=== PATIENT | female | born 1940 | race Caucasian/White ===

== ENCOUNTER 2017-05-15 18:24 | Inpatient (IN) | payer MEDICARE ==
--- NOTE | 2017-05-15 18:42 | ED Physician Chart ---
Chief Complaint/HPI - Patient Information Date Seen:: 05/15/17 Time Seen:: 18:30 Chief Complaint:: High Sodium Level History of Present Illness:: pt sent to ER because of abnormal lab value with Na+: 163 reported today with onset of fever today; no report of H/As, Neck Pain, C/P, SOB, Abd. Pain, A/N/V/D /C, chills, or urinary s/s Allergies:: Allergies Allergy/AdvReac Type Severity Reaction Status Date / Time No Known Allergies Allergy Verified 05/15/17 18:29 Vitals:: Vital Signs - 8 hr 05/15/17 18:32 Temp 99.3 F HR 85 RR 16 BP 130/58 O2 Sat % 98 Historian:: EMS Review:: Nurse's Note Reviewed, Old Chart Reviewed, EMS run form Reviewed, Transfer documents Reviewed Review of Systems - Review of Systems General/Constitutional: Fever, Chills, No weight loss, Weakness, No diaphoresis , No edema, No loss of appetite Skin: No skin lesions, No rash, No bruising Head: No headache, No light-headedness Eyes: No loss of vision, No pain, No diplopia ENT: No earache, No nasal drainage, No sore throat, No tinnitus Neck: No neck pain, No swelling, No thyromegaly, No stiffness, No mass noted Cardio Vascular: No chest pain, No palpitations, No PND, No orthopnea, No edema Pulmonary: No SOB, No cough, No sputum, No wheezing GI: Nausea, Vomiting, Diarrhea, Pain, No melena, No hematochezia, Constipation, No hematemesis G/U: No dysuria, No frequency, No hematuria State'S Attorney: No vaginal discharge, No abnormal vaginal bleed, No contraction Musculoskeletal: No bone or joint pain, No back pain, No muscle pain Endocrine: No polyuria, No polydipsia Psychiatric: No prior psych history, No depression, No anxiety, No suicidal ideation, No homicidal ideation, No auditory hallucination, No visual hallucination Hematopoietic: No bruising, No lymphadenopathy Allergic/Immuno: No urticaria, No angioedema Neurological: No syncope, No focal symptoms, Weakness, No paresthesia, No headache, No seizure, No dizziness, Confusion, No vertigo Past Medical History - Past Medical History Obtainable: Yes Past Medical History: HTN, Asthma/COPD, CVA/TIA, Dyslipidemia, Arthritis Family History: HTN Social History: Non Smoker, No Alcohol, No Drug Use, Care Facility Surgical History: PEG/GTube, other (Tracheostomy) Psychiatricy History: None Medication: Reviewed Family Medical History - Family Member Nephew History Unknown: Yes Physical Exam - Physical Examination General/Constitutional: Awake, Well-developed, well-nourished, Alert, No distress, GCS 15, Non-toxic appearing, Ambulatory Head: Atraumatic Eyes: Lids, conjuctiva normal, PERRL, EOMI Skin: Nl inspection, No rash, No skin lesions, No ecchymosis, Well hydrated, No lymphadenopathy ENMT: External ears, nose nl, Nasal exam nl, Lips, teeth, gums nl Neck: Nontender, Full ROM w/o pain, No JVD, No nuchal rigidity, No bruit, No mass, No stridor Respiratory: Nl effort/Exclusion, Clear to Auscultation, No Wheeze/Rhonchi/Rales Cardio Vascular: RRR, No murmur, gallop, rubs, NL S1 S2 GI: No tenderness/rebounding/guarding, No organomegaly, No hernia, Normal BS's, Nondistended, No mass/bruits, No McBurney tenderness : No CVA tenderness Extremities: No tenderness or effusion, Full ROM, normal strength in all extremities, No edema, Normal digits & nails Neuro/Psych: Alert/oriented, DTR's symmetric, Normal sensory exam, Normal motor strength, Judgement/insight normal, Mood normal, Normal gait, No focal deficits Other Neuro/Psych comments:: pt is non-verbal Misc: normal gait, Normal back, No paraspinal tenderness Labs/Radiology/EKG Results - Lab Results Results: Na+: 158; K+: 3.1; BUN: 59; H/H: 7.8/23.2 - EKG Interpretations Rate & Rhythm: NSR Comments:: non-specific st-t changes ED Septic Shock - . Is Septic Shock (SBP<90, OR Lactate>4 mmol\L) present?: No - <6hrs of presentation: Vital Signs: Vital Signs - 8 hr 08//17 18:32 Temp 99.3 F HR 85 RR 16 BP 130/58 O2 Sat % 98 Reassessment (Disposition) - Reassessment Reassessment Condition:: Improved - Diagnosis Diagnosis:: Hypokalemia; Hypernatremia; Anemia; Dehydration - Aftercare/Follow up Instructions Aftercare/Follow-Up Instructions:: Counseled pt regarding lab results/diagnosis & need follow up, Counseled pt & family regarding lab results/diagnosis & need follow up - Patient Disposition Discharge/Transfer:: Acute Care w/in this hosp Accepting Physician:: Dr. Brown Time Called:: 1949 Time Responded:: 19:50 Admitted to:: Telemetry Spoke to:: Dr. Brown Admitting Medical Physician:: Dr. Brown Condition at Disposition:: Stable, Improved
[2017-05-15] MEDS ORDERED: Sodium Chloride 0.9% 1,000 ML IV ONE (18:46)
[2017-05-15 19:11] LABS: MEAN CELL VOLUME 91.3 fl (81-100); MEAN CORPUSCULAR HEMOGLOBIN 30.8 pg (27.0-31.0); MEAN CORPUSCULAR HGB CONC 33.7 pg (28.0-36.0); MEAN PLATELET VOLUME 10.2 fl; PLATELET COUNT 84 Th/cmm (150-400); RED BLOOD COUNT 2.54 Mil/cmm (3.80-5.20)
[2017-05-15 19:19] LABS: HEMATOCRIT 23.2 % (35.0-45.0); HEMOGLOBIN 7.8 gm/dL (11.7-16.1)
[2017-05-15 19:23] LABS: INR 0.96 (0.5-1.4)
[2017-05-15 19:24] LABS: CHOLESTEROL 133 mg/dL (<200); TRIGLYCERIDES 151 mg/dL (<150)
[2017-05-15 19:26] LABS: ALB/GLOB RATIO 1.1 (1.0-1.8); ALKALINE PHOSPHATASE 58 U/L (34-104); ANION GAP 7.4 (7.0-16.0); BILIRUBIN,TOTAL 0.4 mg/dL (0.3-1.0); BUN - UREA NITROGEN 59 mg/dL (7-25); BUN/CREATININE RATIO 65.6; CALCIUM SERUM 8.9 mg/dL (8.6-10.3); CARBON DIOXIDE 29.7 mEq/L (21.0-31.0); CHLORIDE 124 mEq/L (98-107); CREATININE - SERUM 0.9 mg/dL (0.6-1.2); GLUCOSE 188 mg/dL (70-105); POTASSIUM SERUM 3.1 mEq/L (3.5-5.1); SGOT 27 U/L (13-39); SGPT/ALT 76 U/L (7-52)
[2017-05-15 19:27] LABS: TROP I 0.02 ng/mL (0.01-0.05)
[2017-05-15 19:40] LABS: SODIUM SERUM 158 mEq/L (136-145)
[2017-05-15] MEDS ORDERED: Potassium Chloride Elixir 20 mEq /15 mL UDC GT ONE (19:57)
[2017-05-15] MEDS ORDERED: Potassium Chloride Elixir 20 mEq /15 mL UDC ONE (20:05)
[2017-05-15 20:07] LABS: EOSINOPHIL 3 % (0-5); NEUTROPHILS 50 % (40-80); TOTAL CELLS COUNTED 100
[2017-05-15 20:08] LABS: ANISOCYTOSIS 1+; PLATELET ESTIMATE DECREASED PLATELETS (NORMAL); PLATELET MORPHOLOGY NORMAL (NORMAL)
[2017-05-15 20:28] LABS: URINE BILIRUBIN NEGATIVE (NEGATIVE); URINE BLOOD NEGATIVE (NEGATIVE); URINE GLUCOSE (UA) NEGATIVE (NEGATIVE); URINE KETONE NEGATIVE (NEGATIVE); URINE PROTEIN NEGATIVE (NEGATIVE); URINE UROBILINOGEN 0.2 E.U./dL (0.2 - 1.0)
[2017-05-15 20:33] LABS: URINE COLOR YELLOW
[2017-05-15 20:34] LABS: URINE BACTERIA NONE SEEN /hpf (NONE SEEN); URINE EPITHELIAL CELLS FEW /lpf (FEW); URINE RBC NONE SEEN /hpf (0-5); URINE WBC 0-2 /hpf (0-5)
[2017-05-15] MEDS ORDERED: Dextrose 5% 1,000 ML IV SCH (21:27)
[2017-05-15] MEDS ORDERED: ALPRAZOLAM 0.25 MG GT SCH (21:27)
[2017-05-15] MEDS ORDERED: Hydrocodone/APAP 5mg/325mg Tab PO PRN (21:27)
[2017-05-15 22:56] VITALS: BP 141/62
[2017-05-16 05:23] LABS: HEMOGLOBIN 8.1 gm/dL (11.7-16.1); PLATELET COUNT 75 Th/cmm (150-400); RED BLOOD COUNT 2.63 Mil/cmm (3.80-5.20)
[2017-05-16 05:31] LABS: ALB/GLOB RATIO 1.1 (1.0-1.8); ALKALINE PHOSPHATASE 58 U/L (34-104); ANION GAP 10.1 (7.0-16.0); BILIRUBIN,TOTAL 0.6 mg/dL (0.3-1.0); BUN - UREA NITROGEN 52 mg/dL (7-25); BUN/CREATININE RATIO 57.8; CALCIUM SERUM 8.6 mg/dL (8.6-10.3); CARBON DIOXIDE 25.3 mEq/L (21.0-31.0); CHLORIDE 120 mEq/L (98-107); CHOLESTEROL 135 mg/dL (<200); CREATININE - SERUM 0.9 mg/dL (0.6-1.2); MAGNESIUM 1.7 mg/dL (1.9-2.7); POTASSIUM SERUM 3.4 mEq/L (3.5-5.1); SGOT 20 U/L (13-39); SGPT/ALT 63 U/L (7-52); SODIUM SERUM 152 mEq/L (136-145); TRIGLYCERIDES 173 mg/dL (<150)
[2017-05-16 05:47] LABS: HEMATOCRIT 24.1 % (35.0-45.0); MEAN CELL VOLUME 91.4 fl (81-100); MEAN CORPUSCULAR HEMOGLOBIN 30.8 pg (27.0-31.0); MEAN CORPUSCULAR HGB CONC 33.7 pg (28.0-36.0); MEAN PLATELET VOLUME 12.1 fl; RED CELL DISTRIBUTION WIDTH 16.4 % (11.5-20.0)
[2017-05-16 05:54] LABS: WHITE BLOOD COUNT 2.7 Th/cmm (4.8-10.8)
[2017-05-16 06:25] LABS: GLUCOSE 489 mg/dL (70-105)
[2017-05-16] MEDS: INSULIN ASPART, RECOMBINANT 100 UNITS/ML SUBQ SCH ×3 (06:43→17:13)
[2017-05-16 08:04] LABS: BAND NEUTROPHILE 8 % (0-10); EOSINOPHIL 1 % (0-5); METAMYELOCYTE 1 % (0-0); NEUTROPHILS 67 % (40-80); TOTAL CELLS COUNTED 100
[2017-05-16 08:05] LABS: ANISOCYTOSIS 1+; PLATELET ESTIMATE DECREASED PLATELETS (NORMAL); PLATELET MORPHOLOGY GIANT PLATELETS SEEN (NORMAL)
--- NOTE | 2017-05-16 08:11 | Diagnostic Imaging Report ---
Portable chest x-ray HISTORY: Pain The heart size appears somewhat enlarged. No focal pulmonary processes. No hilar or mediastinal abnormalities. Tracheostomy noted. IMPRESSION: 1. No acute focal pulmonary processes 2. Suggestion of a degree of cardiomegaly 3. Tracheostomy
[2017-05-16] MEDS: Enoxaparin 60 mg/0.6 mL 0.6mL Syr SUBQ SCH (09:44)
--- NOTE | 2017-05-16 10:15 | History & Physical ---
ADMIT DATE: CHIEF COMPLAINT: Electrolyte imbalance, dehydration, renal insufficiency. HISTORY OF PRESENT ILLNESS: This is a 76-year-old lady with history of hypertension, asthma/COPD, history of CVA, diabetes who apparently was admitted to [facility] in the last couple of months for respiratory failure/pneumonia requiring intubation, and eventually trach placement and PEG placement. The patient was transferred to [facility] last week and on routine labs, she was noted to have hypernatremia, hypokalemia, and azotemia. She was given IV fluids, free water per G-tube which was increased increased 2 days in a row, but her repeat chemistry showed persistent hyponatremia, as well as azotemia. She also appeared to be uncomfortable and appeared to be dry given her mucous membranes were noticeably dry. She was electively transferred to the ER, where pertinent findings include an H and H of 7.8/23.2, a sodium of 158, potassium 3.1, and a BUN of 59. She was admitted to the Medical/Surgical Floor for further management and care. She is nonverbal and is able to follow commands. PAST MEDICAL HISTORY: As noted above. PAST SURGICAL HISTORY: Include trach and PEG placement. FAMILY HISTORY: Likely noncontributory. SOCIAL HISTORY: There is no mention of tobacco products, alcohol or illicit drug usage. She still lives with her family at home and now she resides at a snf facility. ALLERGIES: NKDA. OUTPATIENT MEDICATIONS: Acetaminophen 650 q.4 hours p.r.n. for fever/pain, alprazolam 0.25 q.12 p.r.n., amlodipine 5 daily, docusate sodium 200 mg b.i.d., Lovenox 20 mg subQ daily, famotidine 20 mg daily, hydralazine 10 mg q.i.d., Truxton 5/325 one tab t.i.d. p.r.n. for pain, insulin sliding scale, loperamide 2 mg q.6, Zofran 4 mg q.6 hours. REVIEW OF SYSTEMS: CONSTITUTIONAL: There is no mention of fever or chills. No recent weight loss. HEAD AND NECK: There is no recent upper respiratory symptomatology. Trach has been clean with no bleeding reported. CARDIAC: No chest pain or palpitations. PULMONARY: Some congestion, but no shortness of breath. GASTROINTESTINAL: No nausea or vomiting. No abdominal pain or bloating. No diarrhea or constipation. GENITOURINARY: There is no report of hematuria or frequency. NEUROLOGIC: There is no report of headaches. PHYSICAL EXAMINATION: VITAL SIGNS: Temperature 98.2, T-max 101, pulse 86, respirations 18, blood pressure 129/51, satting 94% on room air. GENERAL: Well nourished, well developed, and appears to be in mild discomfort. HEENT: Oropharynx has dry mucous membranes and she does appear to be slightly pale. NECK: Trach is in place. There is no erythema around it. CARDIOVASCULAR: Regular rate and rhythm without any murmurs. LUNGS: Crackles bilaterally. ABDOMEN: Soft, supple, nontender, nondistended, normoactive bowel sounds. There is a PEG tube in place. EXTREMITIES: Lower extremities: There is no edema. NEUROLOGIC: Difficult to be done completely, but the cranial nerves 2-12 appear to be intact. LABORATORY DATA: On admission, white count 3.0, H and H 7/23, with a platelet count of 84. INR is 0.96. Sodium 158, potassium 3.1, chloride 124, CO2 29, BUN 59, glucose 188. A1c 7.5. AST 27, ALT 76, alkaline phosphatase 58. Troponins have been negative x 1 set. BNP 194. Albumin 3.1. UA was essentially within normal limits. DIAGNOSTICS: Chest x-ray shows no acute focal pulmonary process. There is suggestion of a degree of cardiomegaly and tracheostomy is in place. An EKG shows sinus rhythm at 83. No ST elevations or depressions. IMPRESSION: 1. Azotemia, dehydration. 2. Hypernatremia. 3. Hypokalemia. 4. Anemia. 5. Chronic respiratory failure, status post tracheostomy. 6. Recent history of pneumonia. 7. History of asthma/chronic obstructive pulmonary disease. 8. History of cerebrovascular accident/transient ischemic attack. 9. History of essential hypertension. 10. History of type 2 diabetes. 11. Thrombocytopenia. PLAN: The patient has been admitted to the Medical/Surgical Floor for further management and care. She has been placed on D5 water at 75 mL per hour and free water per G-tube at 200 mL every 4 hours. Her potassium has been repleted and she has been kept on her other medications as scheduled. The patient will also be started empirically on IV antibiotics and Nephrology eval has been asked for further management and care. JOB# [id number] CRESCENCIO
[2017-05-16] MEDS: Azithromycin 500 MG in Sodium Chloride 0.9% 250 ML IV SCH (10:56)
[2017-05-16] MEDS ORDERED: Mag Sulfate 2gm/50mL Premix 2 GM/50 ML BAG IV ONE (14:44)
[2017-05-16] MEDS ORDERED: Albuterol Nebulizer 2.5mg/3mL HHN PRN (15:39)
[2017-05-16] MEDS: Sodium Chloride 0.45% 1,000 ML IV SCH (16:42)
--- NOTE | 2017-05-16 22:06 | Consultation ---
DATE OF CONSULTATION: 05/16/2017 ATTENDING: Rabia Brown M.D. LEGAL ENTITY CONTROLLER: José Norwood M.D. REASON FOR CONSULTATION: Worsening kidney function, electrolyte imbalance, and fluid management. HISTORY OF PRESENT ILLNESS: This is a 76-year-old female with past medical history of CVA, who was brought in because of abnormal labs. Two days prior to admission, the patient had labs drawn, which revealed a sodium of 163. Her water flush was increased to 200 mL q.8 hours and started on D5 half NS plus KCl of 10 mEq/L at 75 mL per hour. Repeat labs revealed persistently elevated sodium. Thus, she was brought to the Emergency Room. Her sodium was 158 with a potassium of 3.1, and a BUN/creatinine of 59/1. She was started on IV fluids. She had no history of nausea and vomiting, no diarrhea. PAST MEDICAL HISTORY: 1. History of respiratory failure. 2. Type 2 diabetes mellitus. 3. Essential hypertension. 4. Bronchial asthma/COPD. 5. Status post CVA/TIA. 6. Dyslipidemia. 7. Rheumatoid arthritis. 8. Moderate malnutrition. PAST SURGICAL HISTORY: 1. Status post tracheostomy. 2. Status post PEG placement. CURRENT MEDICATIONS: She is currently on acetaminophen, alprazolam, azithromycin, ceftriaxone, docusate sodium, Lovenox, Pepcid, hydralazine, hydrocodone/APAP, aspart, Imodium, ondansetron, and potassium chloride. ALLERGIES: No known drug allergies. SOCIAL HISTORY: No history of alcohol or tobacco abuse. 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 FAMILY HISTORY: Noncontributory to present illness. REVIEW OF SYSTEMS: I was not able to obtain directly from the patient because she remains nonverbal. PHYSICAL EXAMINATION: GENERAL: The patient is arousable, not in any form of distress, nonverbal. VITAL SIGNS: Her blood pressure is 136/94, pulse 87, temperature 98.6 degrees. SKIN: very poor skin turgor, dry, warm. No jaundice appreciated. HEENT: Head is normocephalic, atraumatic. Eyes: Extraocular muscles intact. Pupils equal, round, reactive to light and accommodates. Anicteric sclerae. Pale conjunctivae. Nose: Midline nasal septum. Mouth: Very dry mucosa with poor dentition. NECK: Supple, no adenopathy, no thyromegaly, no bruits. Trachea palpated in the midline. CARDIOVASCULAR: S1, S2. No rub, murmur, no gallop appreciated. Point of maximal impulse fifth intercostal space, left midclavicular line. No abdominal or femoral bruits appreciated. LUNGS: Equal expansion. No use of accessory muscles. No supraclavicular retractions. Decreased breath sounds, few rhonchi, but no rales, no wheezes appreciated. BREAST: Symmetrical, without any discharge. ABDOMEN: Mildly globular, soft. Positive for bowel sounds. No bruits either diastolic or systolic. RECTAL: Lax sphincter tone. GENITOURINARY: Normal appearing female genitalia. MUSCULOSKELETAL: No effusions present in her joints with limited range of motion. EXTREMITIES: No evidence of any edema, cyanosis, no clubbing, with palpable femoral, popliteal, and dorsalis pedis pulses. NEUROLOGIC: The patient is arousable; however, she could not follow my neuro commands, so I was not able to pursue further my neuro exam. LABORATORY DATA: Did reveal a white count of 2.7, hemoglobin 8.1, hematocrit 24.1, platelets 75. Sodium was 152, potassium 3.4, chloride 120, bicarb is 3.1, glucose is 489, magnesium 1.7. BNP is 194. Albumin is 3.1. TSH 0.88. IMPRESSION: 1. Hypernatremia, likely secondary to dehydration, even though she has G-tube feeding, her water flushes and G-tube feeding rate may not be enough to supplement sensible and insensible fluid losses. 2. Prerenal azotemia based on an elevated BUN to creatinine ratio, likely due to dehydration. This was supported by physical exam of poor skin turgor and dry oral mucosa. She also has a very concentrated urine. 3. Hypokalemia, etiology. 4. Pancytopenia, possibly due to some form of hypersplenism, myelodysplastic syndrome, or even from intake of medications that suppress the bone marrow. 5. History of respiratory failure. 6. Type 2 diabetes mellitus with chronic kidney disease. 7. Essential hypertension with chronic kidney disease. 8. Bronchial asthma/chronic obstructive pulmonary disease. 9. Status post cerebrovascular accident/transient ischemic attack. 10. Dyslipidemia. 11. Rheumatoid arthritis. 12. Moderate malnutrition. PLAN: 1. Continue with IV fluids, but this time switch D5W to half NS because of markedly elevated glucose level. 2. Agree with the increasing water flushes. 3. Follow up urine sodium, eosinophils, and creatinine. 4. Urine microalbumin to creatinine ratio. 5. Stool for occult blood. 6. Follow up electrolytes and CBC. 7. Replace magnesium. Thank you, Dr. Brown for this consult. I will follow the patient closely with you. JOB# [id number]
--- NOTE | 2017-05-16 23:51 | Consultation ---
DATE OF CONSULTATION: 05/16/2017 PATIENT OF: Dr. Brown. Thank you very much Dr. Brown for this consultation. HISTORY OF PRESENT ILLNESS: This is a 76-year-old female who was brought in for electrolyte imbalance and admitted for further treatment and management. The patient apparently has history of chronic respiratory failure on tracheostomy. She had a tracheostomy for 3 years now. 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 PAST MEDICAL HISTORY: COPD, history of pneumonia in the past, dysphagia, G-tube feeding. SOCIAL HISTORY: No smoking. REVIEW OF SYSTEMS: Unable to obtain because of the patient's condition. PHYSICAL EXAMINATION: GENERAL: The patient is awake, not in distress, apparently has been tracheostomy capped lately on and off the past week or so. VITAL SIGNS: Temperature 98.6, pulse 86, respirations 18, blood pressure 129/51, saturation 93% on room air. HEENT: Atraumatic, normocephalic. Pupils equal and reactive to light and accommodation. Ears, nose and throat normal. NECK: Supple. No JVD. CHEST: There is no wheezing or crackles bilaterally. HEART: Regular . ABDOMEN: Soft. EXTREMITIES: No edema. LABORATORY DATA: Chest x-ray showed no acute infiltrate. WBC 22.7, hemoglobin 8.1, hematocrit 24.1, platelets is 75. Sodium is 152, potassium 3.4, BUN is 52, creatinine 0.9. IMPRESSION: 1. This is a 76-year-old female with chronic respiratory failure, status post tracheostomy. 2. Anemia. 3. Hypernatremia and some dehydration. PLAN: 1. IV fluids. 2. Add nebulizer treatment. 3. Uncap if short of breath and at night time. Thank you very much. I will follow the patient with you. JOB# [id number]
[2017-05-17] MEDS: INSULIN ASPART, RECOMBINANT 100 UNITS/ML SUBQ SCH ×4 (00:30→18:05)
[2017-05-17 05:39] LABS: HEMATOCRIT 26.5 % (35.0-45.0); HEMOGLOBIN 8.7 gm/dL (11.7-16.1); MEAN CELL VOLUME 91.2 fl (81-100); MEAN CORPUSCULAR HEMOGLOBIN 29.8 pg (27.0-31.0); MEAN CORPUSCULAR HGB CONC 32.7 pg (28.0-36.0); RED BLOOD COUNT 2.91 Mil/cmm (3.80-5.20); RED CELL DISTRIBUTION WIDTH 16.8 % (11.5-20.0)
[2017-05-17 05:47] LABS: WHITE BLOOD COUNT 4.1 Th/cmm (4.8-10.8)
[2017-05-17] MEDS: Sodium Chloride 0.45% 1,000 ML IV SCH (05:54)
[2017-05-17 06:06] LABS: ANION GAP 6.7 (7.0-16.0); BUN - UREA NITROGEN 49 mg/dL (7-25); BUN/CREATININE RATIO 61.3; CALCIUM SERUM 8.2 mg/dL (8.6-10.3); CARBON DIOXIDE 26.4 mEq/L (21.0-31.0); CHLORIDE 121 mEq/L (98-107); CREATININE - SERUM 0.8 mg/dL (0.6-1.2); GLUCOSE 300 mg/dL (70-105); MAGNESIUM 2.3 mg/dL (1.9-2.7); POTASSIUM SERUM 3.1 mEq/L (3.5-5.1); SODIUM SERUM 151 mEq/L (136-145)
[2017-05-17 07:46] LABS: ANISOCYTOSIS 1+; BAND NEUTROPHILE 11 % (0-10); NEUTROPHILS 59 % (40-80); PLATELET ESTIMATE DECREASED PLATELETS (NORMAL); PLATELET MORPHOLOGY GIANT PLATELETS SEEN (NORMAL); TOTAL CELLS COUNTED 100
[2017-05-17 07:47] LABS: PLATELET COUNT 59 Th/cmm (150-400)
--- NOTE | 2017-05-17 08:17 | Diagnostic Imaging Report ---
CHEST X-RAY: AP view INDICATION: Respiratory failure COMPARISON: 05/15/2017 FINDINGS: Tracheostomy tube is noted. Small left effusion is noted. Bibasal atelectatic changes are noted. Cardiomegaly is noted. Left PICC line is seen terminating along the left axillary region. Old left rib fractures noted. IMPRESSION: Small left effusion and bibasal atelectatic changes. No focal consolidation identified. No evidence of agustin CHF. Cardiomegaly.
[2017-05-17] MEDS: Azithromycin 500 MG in Sodium Chloride 0.9% 250 ML IV SCH (09:07)
[2017-05-17] MEDS: Enoxaparin 60 mg/0.6 mL 0.6mL Syr SUBQ SCH (09:09)
[2017-05-17] MEDS ORDERED: Potassium Chloride 40 MEQ, Lidocaine 1% 20mL Vial 25 MG in Sodium Chloride 0.9% 250 ML IV ONE (11:24)
--- NOTE | 2017-05-17 13:00 | General Progress Note ---
Subjective - Review of Systems Service Date: 05/17/17 Subjective: Sleeping, comfortable Objective - Results Result Diagrams: 05/17/17 05:19 05/17/17 05:19 Recent Labs: Laboratory Last Values WBC 4.1 Th/cmm (4.8-10.8) L D 05/17/17 05:19 RBC 2.91 Mil/cmm (3.80-5.20) L 05/17/17 05:19 Hgb 8.7 gm/dL (11.7-16.1) L 05/17/17 05:19 Hct 26.5 % (35.0-45.0) L 05/17/17 05:19 MCV 91.2 fl (81-100) 05/17/17 05:19 MCH 29.8 pg (27.0-31.0) 05/17/17 05:19 MCHC Differential 32.7 pg (28.0-36.0) 05/17/17 05:19 RDW 16.8 % (11.5-20.0) 05/17/17 05:19 Plt Count 59 Th/cmm (150-400) L D 05/17/17 05:19 MPV 11.0 fl 05/17/17 05:19 Band Neutrophils % 11 % (0-10) H 05/17/17 05:19 Neutrophils (Manual) 59 % (40-80) 05/17/17 05:19 Lymphocytes 23 % (20-50) 05/17/17 05:19 Monocytes 7 % (2-10) 05/17/17 05:19 Eosinophils 1 % (0-5) 05/16/17 05:01 Metamyelocytes 1 % (0-0) H 05/16/17 05:01 Nucleated RBCs 1.0 % (0-0) H 05/17/17 05:19 Platelet Estimate DECREASED PLATELETS (NORMAL) 05/17/17 05:19 Platelet Morphology GIANT PLATELETS SEEN (NORMAL) 05/17/17 05:19 Anisocytosis 1+ 05/17/17 05:19 RBC Morph Micro Appear ABNORMAL (NORMAL) 05/17/17 05:19 Eos Smear Source URINE 05/16/17 22:55 Eos Smear Total Cells NONE SEEN (NONE SEEN) 05/16/17 22:55 PT 10.0 SECONDS (9.5-11.5) 05/15/17 18:56 INR 0.96 (0.5-1.4) 05/15/17 18:56 PTT (Actin FS) 21.6 SECONDS (26.0-38.0) L 05/15/17 18:56 Sodium 151 mEq/L (136-145) H 05/17/17 05:19 Potassium 3.1 mEq/L (3.5-5.1) L 05/17/17 05:19 Chloride 121 mEq/L (98-107) H 05/17/17 05:19 Carbon Dioxide 26.4 mEq/L (21.0-31.0) 05/17/17 05:19 Anion Gap 6.7 (7.0-16.0) L 05/17/17 05:19 BUN 49 mg/dL (7-25) H 05/17/17 05:19 Creatinine 0.8 mg/dL (0.6-1.2) 05/17/17 05:19 Est GFR ( Amer) TNP 05/17/17 05:19 Est GFR (Non-Af Amer) TNP 05/17/17 05:19 BUN/Creatinine Ratio 61.3 05/17/17 05:19 Glucose 300 mg/dL (70-105) H 05/17/17 05:19 POC Glucose 267 MG/DL (70 - 105) H 05/17/17 11:50 Hemoglobin A1c % 7.5 % (4.0-6.0) H 05/15/17 18:56 Whole Bld Lactic Acid 1.71 mmol/L (0.60-1.99) 05/15/17 18:56 Calcium 8.2 mg/dL (8.6-10.3) L 05/17/17 05:19 Magnesium 2.3 mg/dL (1.9-2.7) 05/17/17 05:19 Total Bilirubin 0.6 mg/dL (0.3-1.0) 05/16/17 05:01 AST 20 U/L (13-39) 05/16/17 05:01 ALT 63 U/L (7-52) H 05/16/17 05:01 Alkaline Phosphatase 58 U/L (34-104) 05/16/17 05:01 Creatine Kinase 20 U/L (30-223) L 05/15/17 18:56 Troponin I 0.02 ng/mL (0.01-0.05) 05/15/17 18:56 B-Natriuretic Peptide 194.0 pg/mL (5.0-100.0) H 05/15/17 18:56 Total Protein 6.0 gm/dL (6.0-8.3) 05/16/17 05:01 Albumin 3.1 gm/dL (3.7-5.3) L 05/16/17 05:01 Globulin 2.9 gm/dL 05/16/17 05:01 Albumin/Globulin Ratio 1.1 (1.0-1.8) 05/16/17 05:01 Triglycerides 173 mg/dL (<150) H 05/16/17 05:01 Cholesterol 135 mg/dL (<200) 05/16/17 05:01 LDL Cholesterol Direct 97 mg/dL (75-193) 05/16/17 05:01 HDL Cholesterol 32 mg/dL (23-92) 05/16/17 05:01 TSH 0.88 uIU/ml (0.34-5.60) 05/16/17 05:01 Urine Source MIDSTREAM 05/15/17 19:20 Urine Color YELLOW 05/15/17 19:20 Urine Clarity CLEAR (CLEAR) 05/15/17 19:20 Urine pH 6.0 (4.6 - 8.0) 05/15/17 19:20 Ur Specific [place] 1.020 (1.005-1.030) 05/15/17 19:20 Urine Protein NEGATIVE mg/dL (NEGATIVE) 05/15/17 19:20 Urine Glucose (UA) NEGATIVE mg/dL (NEGATIVE) 05/15/17 19:20 Urine Ketones NEGATIVE mg/dL (NEGATIVE) 05/15/17 19:20 Urine Blood NEGATIVE (NEGATIVE) 05/15/17 19:20 Urine Nitrate NEGATIVE (NEGATIVE) 05/15/17 19:20 Urine Bilirubin NEGATIVE (NEGATIVE) 05/15/17 19:20 Urine Urobilinogen 0.2 E.U./dL (0.2 - 1.0) 05/15/17 19:20 Ur Leukocyte Esterase NEGATIVE (NEGATIVE) 05/15/17 19:20 Urine RBC NONE SEEN /hpf (0-5) 05/15/17 19:20 Urine WBC 0-2 /hpf (0-5) 05/15/17 19:20 Ur Epithelial Cells FEW /lpf (FEW) 05/15/17 19:20 Urine Bacteria NONE SEEN /hpf (NONE SEEN) 05/15/17 19:20 Ur Random Sodium 58 mmol/L 05/16/17 22:55 Urine Creatinine 61.0 mg/dl (28.0-217.0) 05/16/17 22:55 Blood Type A POSITIVE 05/16/17 09:30 Antibody Screen NEGATIVE 05/16/17 09:30 Crossmatch See Detail 05/16/17 09:30 - Physical Exam Vitals and I&O: Vital Signs Temp 97.1 F 05/17/17 07:00 Pulse 100 05/17/17 09:06 Resp 18 05/17/17 08:00 BP 101/45 05/17/17 09:06 Pulse Ox 98 05/17/17 07:54 Intake & Output 05/16/17 05/17/17 05/17/17 18:59 06:59 18:59 Intake Total 1350 2270 Output Total 150 Balance 1350 2120 Weight (lbs) 58.967 kg 58.967 kg Intake: Intake, IV Amount 250 1050 Azithromycin 500 mg In 250 Sodium Chloride 0.9% 250 ml @ 250 mls/hr IV Q24HR [facility] Rx#:[id number] Sodium Chloride 0.45% 1, 1000 000 ml @ 100 mls/hr IV . Q10H [facility] Rx#:[id number] cefTRIAXone 1 gm In 50 Dextrose 5% 50 ml @ 100 mls/hr IV Q24H [facility] Rx#: [id number] Oral 0 0 Tube Feeding 720 TPN/PPN 600 Other 500 500 Output: Urine 150 Other: # Voids 2 3 # Bowel Movements 0 0 Active Medications: Current Medications Acetaminophen (Tylenol) 650 mg PO Q4HR PRN PRN Reason: Pain or Fever >101 Stop: 07/14/17 21:26 Last Admin: 05/16/17 04:34 Dose: 650 mg Acetaminophen/Hydrocodone Bitart ([place] 5mg/325mg) 1 tab PO TID PRN PRN Reason: Pain (Mild) Stop: 07/14/17 21:26 Albuterol Sulfate (Albuterol 2.5mg/3ml Neb Ud) 2.5 mg HHN Q4HRT PRN PRN Reason: Shortness of Breath Stop: 07/15/17 15:38 Alprazolam (Xanax) 0.25 mg PO Q12H [facility] Stop: 07/15/17 08:14 Last Admin: 05/17/17 09:06 Dose: 0.25 mg Amlodipine Besylate (Norvasc) 5 mg GT DAILY [facility] Stop: 07/15/17 08:59 Last Admin: 05/17/17 09:06 Dose: 5 mg Docusate Sodium (Colace) 200 mg PO BID [facility] Stop: 07/15/17 08:59 Last Admin: 05/17/17 09:06 Dose: 200 mg Enoxaparin Sodium (Lovenox) 20 mg SUBQ DAILY [facility] Stop: 07/15/17 08:59 Last Admin: 05/17/17 09:09 Dose: 20 mg Famotidine (Pepcid) 20 mg GT DAILY [facility] Stop: 07/15/17 08:59 Last Admin: 05/17/17 09:06 Dose: 20 mg Hydralazine HCl (Apresoline) 10 mg PO QID PRN PRN Reason: SBP ABOVE 160 Stop: 07/14/17 21:26 Azithromycin 500 mg/ Sodium (Chloride) 250 mls @ 250 mls/hr IV Q24HR [facility] Stop: 07/15/17 09:44 Last Admin: 05/17/17 09:07 Dose: 250 mls/hr Ceftriaxone Sodium 1 gm/ (Dextrose) 50 mls @ 100 mls/hr IV Q24H [facility] Stop: 07/15/17 09:44 Last Admin: 05/17/17 10:42 Dose: 100 mls/hr Sodium Chloride (Nacl 0.45%) 1,000 mls @ 100 mls/hr IV .Q10H [facility] Stop: 07/15/17 14:29 Last Admin: 05/17/17 05:54 Dose: 100 mls/hr Potassium Chloride 40 meq/Lidocaine HCl 25 mg/ Sodium Chloride 272.5 mls @ 68 mls/hr IV X1 ONE Stop: 05/17/17 15:24 Insulin Aspart (Novolog) 0 units SUBQ Q6HR [facility] PRN Reason: Protocol Stop: 07/16/17 05:59 Last Admin: 05/17/17 11:59 Dose: 7 ud Insulin Detemir (Levemir Insulin) 10 units SUBQ HS [facility] PRN Reason: Protocol Stop: 07/16/17 20:59 Loperamide HCl (Imodium) 2 mg PO Q6H PRN PRN Reason: Diarrhea Stop: 07/14/17 21:26 Mupirocin (Bactroban Oint) 1 appl NS BID [facility] Stop: 05/22/17 09:01 Ondansetron HCl (Zofran Odt) 4 mg SL Q6HR PRN PRN Reason: Nausea Stop: 07/14/17 21:26 General: Alert, Cooperative, No acute distress HEENT: Atraumatic, PERRLA, EOMI, Mucous membr. moist/pink Neck: Supple, +2 carotid pulse wo bruit Cardiovascular: Regular rate, Normal S1, Normal S2 Lungs: Clear to auscultation Abdomen: Bowel sounds, Soft Extremities: no Edema Neurological: Sensation intact Skin: no Rash Psych/Mental Status: Mood NL Assessment/Plan - Assessment Assessment: Hypernatremia secondary to dehydration Hypokalemia without hyperaldosteronism Prerenal azotemia Pancytopenia Status post respiratory failure on PMV Type II DM with CKD Essential hypertension CKD Bronchial asthma/COPD Status post CVA Dyslipidemia Rheumatoid arthritis Moderate malnutrition - Plan Plan: Lab - Result Diagrams 05/17/17 05:19 05/17/17 05:19 Current Medications Acetaminophen (Tylenol) 650 mg PO Q4HR PRN PRN Reason: Pain or Fever >101 Stop: 07/14/17 21:26 Last Admin: 05/16/17 04:34 Dose: 650 mg Acetaminophen/Hydrocodone Bitart ([place] 5mg/325mg) 1 tab PO TID PRN PRN Reason: Pain (Mild) Stop: 07/14/17 21:26 Albuterol Sulfate (Albuterol 2.5mg/3ml Neb Ud) 2.5 mg HHN Q4HRT PRN PRN Reason: Shortness of Breath Stop: 07/15/17 15:38 Alprazolam (Xanax) 0.25 mg PO Q12H [facility] Stop: 07/15/17 08:14 Last Admin: 05/17/17 09:06 Dose: 0.25 mg Amlodipine Besylate (Norvasc) 5 mg GT DAILY [facility] Stop: 07/15/17 08:59 Last Admin: 05/17/17 09:06 Dose: 5 mg Docusate Sodium (Colace) 200 mg PO BID [facility] Stop: 07/15/17 08:59 Last Admin: 05/17/17 09:06 Dose: 200 mg Enoxaparin Sodium (Lovenox) 20 mg SUBQ DAILY [facility] Stop: 07/15/17 08:59 Last Admin: 05/17/17 09:09 Dose: 20 mg Famotidine (Pepcid) 20 mg GT DAILY [facility] Stop: 07/15/17 08:59 Last Admin: 05/17/17 09:06 Dose: 20 mg Hydralazine HCl (Apresoline) 10 mg PO QID PRN PRN Reason: SBP ABOVE 160 Stop: 07/14/17 21:26 Azithromycin 500 mg/ Sodium (Chloride) 250 mls @ 250 mls/hr IV Q24HR [facility] Stop: 07/15/17 09:44 Last Admin: 05/17/17 09:07 Dose: 250 mls/hr Ceftriaxone Sodium 1 gm/ (Dextrose) 50 mls @ 100 mls/hr IV Q24H [facility] Stop: 07/15/17 09:44 Last Admin: 05/17/17 10:42 Dose: 100 mls/hr Sodium Chloride (Nacl 0.45%) 1,000 mls @ 100 mls/hr IV .Q10H [facility] Stop: 07/15/17 14:29 Last Admin: 05/17/17 05:54 Dose: 100 mls/hr Potassium Chloride 40 meq/Lidocaine HCl 25 mg/ Sodium Chloride 272.5 mls @ 68 mls/hr IV X1 ONE Stop: 05/17/17 15:24 Insulin Aspart (Novolog) 0 units SUBQ Q6HR [facility] PRN Reason: Protocol Stop: 07/16/17 05:59 Last Admin: 05/17/17 11:59 Dose: 7 ud Insulin Detemir (Levemir Insulin) 10 units SUBQ HS [facility] PRN Reason: Protocol Stop: 07/16/17 20:59 Loperamide HCl (Imodium) 2 mg PO Q6H PRN PRN Reason: Diarrhea Stop: 07/14/17 21:26 Mupirocin (Bactroban Oint) 1 appl NS BID [facility] Stop: 05/22/17 09:01 Ondansetron HCl (Zofran Odt) 4 mg SL Q6HR PRN PRN Reason: Nausea Stop: 07/14/17 21:26 Continue IV fluid half and has because blood sugar still elevated Sodium and kidney function slightly improved Replace potassium Follow-up electrolytes, CBC Nutritional Asmnt/Malnutr-PDOC - Dietary Evaluation Malnutrition Findings (Please click <Entered> for more info): Nutritional Asmnt/Malnutrition Start: 05/16/17 13: 09 Text: Status: Complete Freq: Document 05/16/17 13:09 GARRETT (Rec: 05/16/17 13:17 GSLINH [email or web address]) Nutritional Asmnt/Malnutrition Patient General Information Nutritional Screening High Risk Screening Diagnosis Azotemia, dehydration, Pertinent Medical Hx/Surgical Hx HTN, asthma/COPD, CVA, DM, recent respiratory failure/PNA requiring intubation and evetually trach and PEG Subjective Information 76 year old female. Lab trigger glucose 489H. Pt made eye contact, mumbled, trach, unable to interview. No severe muscle/fat wasting noted. Discussed with SPIKE Meade who discuseed with MD Brown regarding formula switch to Diabetisource due to glucoer 489H and hx DM. RN stated pt has been toelrating tube feeding well, no residuals. Current Diet Order/ Nutrition Support Isosource at 40ml/hr x 20hrs Pertinent Medications D5w, Colace, Novolog, Zofran Pertinent Labs 05/15: A1c 7.5H 05/16: potassium 3.4L, glucose 489H, BUN 52H, creaitnine 0.9 WNL Nutritional Hx/Data Height 1.57 m Height (Calculated Centimeters) 157.5 Current Weight (lbs) 59.194 kg Weight (Calculated Kilograms) 59.2 Weight (Calculated Grams) 25210.8 [place] Body Weight 110 Weight Status Approriate GI Symptoms Usual diet at home Chart: Diabetisource at 60ml/ hr x 18hrs, providing 1296kcal . Skin Integrity/Comment: Fer 14. Bilateral upper medial thigh redness. Estimated Nutritional Goals BEE in Kcals: Using Current wt Calories/Kcals/Kg CBW 130.5lb/59.3kg Kcals Calculated 1364-1660kcal (23-28kcal/kg) Protein: Using Current wt Protein Calculated 59g (1g/kg) Fluid: ml 1483-1779ml (1ml/kcal) Nutritional Problem 1. Problem Problem Altered nutrition related laboratory values related to Etiology DM aeb Signs/Symptoms: glucose 489 this AM, hx DM Intervention/Recommendation Comments 1. Recommend Diabetisource at 60ml/hr x 20hrs, providing 1200ml total volume, 1440kcal, 72g protein. Expected Outcomes/Goals Expected Outcomes/Goals 1. Pt to meet 100% of estimated nutritional needs on tube feeding with tolerance.
[2017-05-17] MEDS: Insulin Detemir 100 units/mL 10mL Vial SUBQ SCH (20:16)
[2017-05-18] MEDS: Sodium Chloride 0.45% 1,000 ML IV SCH (01:55)
[2017-05-18] MEDS: INSULIN ASPART, RECOMBINANT 100 UNITS/ML SUBQ SCH ×4 (01:58→17:41)
[2017-05-18 07:39] LABS: HEMATOCRIT 27.4 % (35.0-45.0); HEMOGLOBIN 9.3 gm/dL (11.7-16.1); MEAN CELL VOLUME 90.5 fl (81-100); MEAN CORPUSCULAR HEMOGLOBIN 30.6 pg (27.0-31.0); MEAN CORPUSCULAR HGB CONC 33.8 pg (28.0-36.0); MEAN PLATELET VOLUME 10.5 fl; PLATELET COUNT 53 Th/cmm (150-400); RED BLOOD COUNT 3.03 Mil/cmm (3.80-5.20); RED CELL DISTRIBUTION WIDTH 16.1 % (11.5-20.0)
[2017-05-18 07:49] LABS: ANION GAP 6.9 (7.0-16.0); BUN - UREA NITROGEN 32 mg/dL (7-25); BUN/CREATININE RATIO 53.3; CALCIUM SERUM 8.2 mg/dL (8.6-10.3); CARBON DIOXIDE 23.2 mEq/L (21.0-31.0); CHLORIDE 119 mEq/L (98-107); CREATININE - SERUM 0.6 mg/dL (0.6-1.2); GLUCOSE 143 mg/dL (70-105); MAGNESIUM 1.9 mg/dL (1.9-2.7); POTASSIUM SERUM 3.1 mEq/L (3.5-5.1); SODIUM SERUM 146 mEq/L (136-145)
[2017-05-18 08:46] LABS: WHITE BLOOD COUNT 3.1 Th/cmm (4.8-10.8)
--- NOTE | 2017-05-18 08:50 | General Progress Note ---
Subjective - Review of Systems Service Date: 05/18/17 Subjective: patient non verbal Objective - Results Result Diagrams: 05/17/17 05:19 05/18/17 06:35 Recent Labs: Laboratory Last Values WBC 4.1 Th/cmm (4.8-10.8) L D 05/17/17 05:19 RBC 2.91 Mil/cmm (3.80-5.20) L 05/17/17 05:19 Hgb 8.7 gm/dL (11.7-16.1) L 05/17/17 05:19 Hct 26.5 % (35.0-45.0) L 05/17/17 05:19 MCV 91.2 fl (81-100) 05/17/17 05:19 MCH 29.8 pg (27.0-31.0) 05/17/17 05:19 MCHC Differential 32.7 pg (28.0-36.0) 05/17/17 05:19 RDW 16.8 % (11.5-20.0) 05/17/17 05:19 Plt Count 59 Th/cmm (150-400) L D 05/17/17 05:19 MPV 11.0 fl 05/17/17 05:19 Band Neutrophils % 11 % (0-10) H 05/17/17 05:19 Neutrophils (Manual) 59 % (40-80) 05/17/17 05:19 Lymphocytes 23 % (20-50) 05/17/17 05:19 Monocytes 7 % (2-10) 05/17/17 05:19 Eosinophils 1 % (0-5) 05/16/17 05:01 Metamyelocytes 1 % (0-0) H 05/16/17 05:01 Nucleated RBCs 1.0 % (0-0) H 05/17/17 05:19 Platelet Estimate DECREASED PLATELETS (NORMAL) 05/17/17 05:19 Platelet Morphology GIANT PLATELETS SEEN (NORMAL) 05/17/17 05:19 Anisocytosis 1+ 05/17/17 05:19 RBC Morph Micro Appear ABNORMAL (NORMAL) 05/17/17 05:19 Eos Smear Source URINE 05/16/17 22:55 Eos Smear Total Cells NONE SEEN (NONE SEEN) 05/16/17 22:55 PT 10.0 SECONDS (9.5-11.5) 05/15/17 18:56 INR 0.96 (0.5-1.4) 05/15/17 18:56 PTT (Actin FS) 21.6 SECONDS (26.0-38.0) L 05/15/17 18:56 Sodium 146 mEq/L (136-145) H 05/18/17 06:35 Potassium 3.1 mEq/L (3.5-5.1) L 05/18/17 06:35 Chloride 119 mEq/L (98-107) H 05/18/17 06:35 Carbon Dioxide 23.2 mEq/L (21.0-31.0) 05/18/17 06:35 Anion Gap 6.9 (7.0-16.0) L 05/18/17 06:35 BUN 32 mg/dL (7-25) H 05/18/17 06:35 Creatinine 0.6 mg/dL (0.6-1.2) 05/18/17 06:35 Est GFR ( Amer) TNP 05/18/17 06:35 Est GFR (Non-Af Amer) TNP 05/18/17 06:35 BUN/Creatinine Ratio 53.3 05/18/17 06:35 Glucose 143 mg/dL (70-105) H 05/18/17 06:35 POC Glucose 127 MG/DL (70 - 105) H 05/18/17 06:49 Hemoglobin A1c % 7.5 % (4.0-6.0) H 05/15/17 18:56 Whole Bld Lactic Acid 1.71 mmol/L (0.60-1.99) 05/15/17 18:56 Calcium 8.2 mg/dL (8.6-10.3) L 05/18/17 06:35 Magnesium 1.9 mg/dL (1.9-2.7) 05/18/17 06:35 Total Bilirubin 0.6 mg/dL (0.3-1.0) 05/16/17 05:01 AST 20 U/L (13-39) 05/16/17 05:01 ALT 63 U/L (7-52) H 05/16/17 05:01 Alkaline Phosphatase 58 U/L (34-104) 05/16/17 05:01 Creatine Kinase 20 U/L (30-223) L 05/15/17 18:56 Troponin I 0.02 ng/mL (0.01-0.05) 05/15/17 18:56 B-Natriuretic Peptide 194.0 pg/mL (5.0-100.0) H 05/15/17 18:56 Total Protein 6.0 gm/dL (6.0-8.3) 05/16/17 05:01 Albumin 3.1 gm/dL (3.7-5.3) L 05/16/17 05:01 Globulin 2.9 gm/dL 05/16/17 05:01 Albumin/Globulin Ratio 1.1 (1.0-1.8) 05/16/17 05:01 Triglycerides 173 mg/dL (<150) H 05/16/17 05:01 Cholesterol 135 mg/dL (<200) 05/16/17 05:01 LDL Cholesterol Direct 97 mg/dL (75-193) 05/16/17 05:01 HDL Cholesterol 32 mg/dL (23-92) 05/16/17 05:01 TSH 0.88 uIU/ml (0.34-5.60) 05/16/17 05:01 Urine Source MIDSTREAM 05/15/17 19:20 Urine Color YELLOW 05/15/17 19:20 Urine Clarity CLEAR (CLEAR) 05/15/17 19:20 Urine pH 6.0 (4.6 - 8.0) 05/15/17 19:20 Ur Specific [place] 1.020 (1.005-1.030) 05/15/17 19:20 Urine Protein NEGATIVE mg/dL (NEGATIVE) 05/15/17 19:20 Urine Glucose (UA) NEGATIVE mg/dL (NEGATIVE) 05/15/17 19:20 Urine Ketones NEGATIVE mg/dL (NEGATIVE) 05/15/17 19:20 Urine Blood NEGATIVE (NEGATIVE) 05/15/17 19:20 Urine Nitrate NEGATIVE (NEGATIVE) 05/15/17 19:20 Urine Bilirubin NEGATIVE (NEGATIVE) 05/15/17 19:20 Urine Urobilinogen 0.2 E.U./dL (0.2 - 1.0) 05/15/17 19:20 Ur Leukocyte Esterase NEGATIVE (NEGATIVE) 05/15/17 19:20 Urine RBC NONE SEEN /hpf (0-5) 05/15/17 19:20 Urine WBC 0-2 /hpf (0-5) 05/15/17 19:20 Ur Epithelial Cells FEW /lpf (FEW) 05/15/17 19:20 Urine Bacteria NONE SEEN /hpf (NONE SEEN) 05/15/17 19:20 Ur Random Sodium 58 mmol/L 05/16/17 22:55 Urine Creatinine 61.0 mg/dl (28.0-217.0) 05/16/17 22:55 Blood Type A POSITIVE 05/16/17 09:30 Antibody Screen NEGATIVE 05/16/17 09:30 Crossmatch See Detail 05/16/17 09:30 - Physical Exam Vitals and I&O: Vital Signs Temp 97.6 F 05/18/17 04:00 Pulse 77 05/18/17 07:55 Resp 16 05/18/17 07:55 BP 150/72 05/18/17 04:00 Pulse Ox 100 05/18/17 07:55 Intake & Output 05/17/17 05/18/17 05/18/17 18:59 06:59 18:59 Intake Total 1000 1200 Balance 1000 1200 Weight (lbs) 58.967 kg Intake: Intake, IV Amount 1000 Sodium Chloride 0.45% 1, 1000 000 ml @ 100 mls/hr IV . Q10H [facility] Rx#:[id number] Oral 0 Tube Feeding 1200 Other: # Voids 3 # Bowel Movements 1 Active Medications: Current Medications Acetaminophen (Tylenol) 650 mg PO Q4HR PRN PRN Reason: Pain or Fever >101 Stop: 07/14/17 21:26 Last Admin: 05/16/17 04:34 Dose: 650 mg Acetaminophen/Hydrocodone Bitart ([place] 5mg/325mg) 1 tab PO TID PRN PRN Reason: Pain (Mild) Stop: 07/14/17 21:26 Albuterol Sulfate (Albuterol 2.5mg/3ml Neb Ud) 2.5 mg HHN Q4HRT PRN PRN Reason: Shortness of Breath Stop: 07/15/17 15:38 Alprazolam (Xanax) 0.25 mg PO Q12H [facility] Stop: 07/15/17 08:14 Last Admin: 05/17/17 20:15 Dose: 0.25 mg Amlodipine Besylate (Norvasc) 5 mg GT DAILY [facility] Stop: 07/15/17 08:59 Last Admin: 05/17/17 09:06 Dose: 5 mg Docusate Sodium (Colace) 200 mg PO BID [facility] Stop: 07/15/17 08:59 Last Admin: 05/17/17 17:31 Dose: 200 mg Enoxaparin Sodium (Lovenox) 20 mg SUBQ DAILY [facility] Stop: 07/15/17 08:59 Last Admin: 05/17/17 09:09 Dose: 20 mg Famotidine (Pepcid) 20 mg GT DAILY [facility] Stop: 07/15/17 08:59 Last Admin: 05/17/17 09:06 Dose: 20 mg Hydralazine HCl (Apresoline) 10 mg PO QID PRN PRN Reason: SBP ABOVE 160 Stop: 07/14/17 21:26 Azithromycin 500 mg/ Sodium (Chloride) 250 mls @ 250 mls/hr IV Q24HR [facility] Stop: 07/15/17 09:44 Last Admin: 05/17/17 09:07 Dose: 250 mls/hr Ceftriaxone Sodium 1 gm/ (Dextrose) 50 mls @ 100 mls/hr IV Q24H [facility] Stop: 07/15/17 09:44 Last Admin: 05/17/17 10:42 Dose: 100 mls/hr Sodium Chloride (Nacl 0.45%) 1,000 mls @ 100 mls/hr IV .Q10H [facility] Stop: 07/15/17 14:29 Last Admin: 05/18/17 01:55 Dose: 100 mls/hr Insulin Aspart (Novolog) 0 units SUBQ Q6HR [facility] PRN Reason: Protocol Stop: 07/16/17 05:59 Last Admin: 05/18/17 06:50 Dose: Not Given Insulin Detemir (Levemir Insulin) 10 units SUBQ HS [facility] PRN Reason: Protocol Stop: 07/16/17 20:59 Last Admin: 05/17/17 20:16 Dose: 10 units Loperamide HCl (Imodium) 2 mg PO Q6H PRN PRN Reason: Diarrhea Stop: 07/14/17 21:26 Mupirocin (Bactroban Oint) 1 appl NS BID [facility] Stop: 05/22/17 09:01 Last Admin: 05/17/17 17:32 Dose: 1 appl Ondansetron HCl (Zofran Odt) 4 mg SL Q6HR PRN PRN Reason: Nausea Stop: 07/14/17 21:26 General: Cooperative, No acute distress, Other (Sleeping confortable) HEENT: Atraumatic Neck: Supple, +2 carotid pulse wo bruit, Other (Tracheostomy in place) Cardiovascular: Regular rate, Normal S1, Normal S2 Lungs: Other (Rude respiration) Abdomen: Bowel sounds, Soft, Other (PEG in place) Extremities: Other (No edema), no Edema Neurological: Sensation intact Skin: Other (Warm and dry), no Rash Psych/Mental Status: Other (Sleeping but arousable) Assessment/Plan - Assessment Assessment: Patient Na improving, normal creatinine. Will continue to monitor - Plan Plan: Patient has been seen by Pulmonology, and Nephro. Will continue same management. Nutritional Asmnt/Malnutr-PDOC - Dietary Evaluation Malnutrition Findings (Please click <Entered> for more info): Nutritional Asmnt/Malnutrition Start: 05/16/17 13: 09 Text: Status: Complete Freq: Document 05/16/17 13:09 [facility] (Rec: 05/16/17 13:17 [facility] [id number]) Nutritional Asmnt/Malnutrition Patient General Information Nutritional Screening High Risk Screening Diagnosis Azotemia, dehydration, Pertinent Medical Hx/Surgical Hx HTN, asthma/COPD, CVA, DM, recent respiratory failure/PNA requiring intubation and evetually trach and PEG Subjective Information 76 year old female. Lab trigger glucose 489H. Pt made eye contact, mumbled, trach, unable to interview. No severe muscle/fat wasting noted. Discussed with SPIKE Meade who discuseed with MD Brown regarding formula switch to Diabetisource due to glucoer 489H and hx DM. RN stated pt has been toelrating tube feeding well, no residuals. Current Diet Order/ Nutrition Support Isosource at 40ml/hr x 20hrs Pertinent Medications D5w, Colace, Novolog, Zofran Pertinent Labs 05/15: A1c 7.5H 05/16: potassium 3.4L, glucose 489H, BUN 52H, creaitnine 0.9 WNL Nutritional Hx/Data Height 1.57 m Height (Calculated Centimeters) 157.5 Current Weight (lbs) 59.194 kg Weight (Calculated Kilograms) 59.2 Weight (Calculated Grams) 49494.8 [place] Body Weight 110 Weight Status Approriate GI Symptoms Usual diet at home Chart: Diabetisource at 60ml/ hr x 18hrs, providing 1296kcal . Skin Integrity/Comment: Fer 14. Bilateral upper medial thigh redness. Estimated Nutritional Goals BEE in Kcals: Using Current wt Calories/Kcals/Kg CBW 130.5lb/59.3kg Kcals Calculated 1364-1660kcal (23-28kcal/kg) Protein: Using Current wt Protein Calculated 59g (1g/kg) Fluid: ml 1483-1779ml (1ml/kcal) Nutritional Problem 1. Problem Problem Altered nutrition related laboratory values related to Etiology DM aeb Signs/Symptoms: glucose 489 this AM, hx DM Intervention/Recommendation Comments 1. Recommend Diabetisource at 60ml/hr x 20hrs, providing 1200ml total volume, 1440kcal, 72g protein. Expected Outcomes/Goals Expected Outcomes/Goals 1. Pt to meet 100% of estimated nutritional needs on tube feeding with tolerance.
[2017-05-18] MEDS: Enoxaparin 60 mg/0.6 mL 0.6mL Syr SUBQ SCH (09:47)
[2017-05-18] MEDS: Azithromycin 500 MG in Sodium Chloride 0.9% 250 ML IV SCH (09:48)
[2017-05-18 10:55] LABS: BAND NEUTROPHILE 6 % (0-10); NEUTROPHILS 69 % (40-80); TOTAL CELLS COUNTED 100
[2017-05-18 10:56] LABS: EOSINOPHIL 5 % (0-5)
[2017-05-18 10:57] LABS: ANISOCYTOSIS 1+; PLATELET ESTIMATE DECREASED PLATELETS (NORMAL); PLATELET MORPHOLOGY GIANT PLATELETS SEEN (NORMAL)
[2017-05-18 10:58] LABS: POLYCHROMASIA 1+
[2017-05-18 11:10] LABS: MICROALBUMIN RANDOM RUINE 390.3 ug/mL (Not Estab.)
[2017-05-18] MEDS: KCL 20mEq/100mL Premix 20 MEQ/100 ML PIGGYBACK IV SCH ×2 (12:39→14:43)
[2017-05-18] MEDS: Insulin Detemir 100 units/mL 10mL Vial SUBQ SCH (20:45)
[2017-05-19] MEDS: INSULIN ASPART, RECOMBINANT 100 UNITS/ML SUBQ SCH ×4 (00:08→19:10)
[2017-05-19] MEDS: Docusate Sodium 100 mg/10 mL UD GT SCH (05:29)
[2017-05-19 05:35] LABS: HEMATOCRIT 25.6 % (35.0-45.0); HEMOGLOBIN 8.7 gm/dL (11.7-16.1); MEAN CELL VOLUME 90.4 fl (81-100); MEAN CORPUSCULAR HEMOGLOBIN 30.7 pg (27.0-31.0); MEAN PLATELET VOLUME 10.4 fl; PLATELET COUNT 55 Th/cmm (150-400); RED BLOOD COUNT 2.83 Mil/cmm (3.80-5.20); RED CELL DISTRIBUTION WIDTH 15.7 % (11.5-20.0)
[2017-05-19 05:59] LABS: WHITE BLOOD COUNT 2.8 Th/cmm (4.8-10.8)
[2017-05-19 06:00] LABS: ALKALINE PHOSPHATASE 46 U/L (34-104); ANION GAP 7.8 (7.0-16.0); BILIRUBIN,TOTAL 0.3 mg/dL (0.3-1.0); BUN - UREA NITROGEN 27 mg/dL (7-25); CARBON DIOXIDE 20.9 mEq/L (21.0-31.0); CHLORIDE 116 mEq/L (98-107); CREATININE - SERUM 0.6 mg/dL (0.6-1.2); GLUCOSE 111 mg/dL (70-105); MAGNESIUM 1.8 mg/dL (1.9-2.7); POTASSIUM SERUM 3.7 mEq/L (3.5-5.1); SGOT 15 U/L (13-39); SGPT/ALT 23 U/L (7-52); SODIUM SERUM 141 mEq/L (136-145)
[2017-05-19 07:14] LABS: BAND NEUTROPHILE 4 % (0-10); NEUTROPHILS 64 % (40-80); PLATELET ESTIMATE DECREASED PLATELETS (NORMAL); TOTAL CELLS COUNTED 100
[2017-05-19] MEDS ORDERED: Magnesium Hydroxide (MOM) 30 mL UDC PO PRN (09:40)
[2017-05-19] MEDS ORDERED: Magnesium Citrate 1.75 GM/300 mL Bottle PO ONE (09:42)
--- NOTE | 2017-05-19 09:45 | General Progress Note ---
Subjective - Review of Systems Service Date: 05/19/17 Subjective: patient with tracheostomy, non verbal Objective - Results Result Diagrams: 05/19/17 05:05 05/19/17 05:05 Recent Labs: Laboratory Last Values WBC 2.8 Th/cmm (4.8-10.8) L 05/19/17 05:05 RBC 2.83 Mil/cmm (3.80-5.20) L 05/19/17 05:05 Hgb 8.7 gm/dL (11.7-16.1) L 05/19/17 05:05 Hct 25.6 % (35.0-45.0) L 05/19/17 05:05 MCV 90.4 fl (81-100) 05/19/17 05:05 MCH 30.7 pg (27.0-31.0) 05/19/17 05:05 MCHC Differential 34.0 pg (28.0-36.0) 05/19/17 05:05 RDW 15.7 % (11.5-20.0) 05/19/17 05:05 Plt Count 55 Th/cmm (150-400) L 05/19/17 05:05 MPV 10.4 fl 05/19/17 05:05 Band Neutrophils % 4 % (0-10) 05/19/17 05:05 Neutrophils (Manual) 64 % (40-80) 05/19/17 05:05 Lymphocytes 24 % (20-50) 05/19/17 05:05 Monocytes 8 % (2-10) 05/19/17 05:05 Eosinophils 5 % (0-5) 05/18/17 06:35 Metamyelocytes 1 % (0-0) H 05/16/17 05:01 Nucleated RBCs 1.0 % (0-0) H 05/17/17 05:19 Platelet Estimate DECREASED PLATELETS (NORMAL) 05/19/17 05:05 Platelet Morphology GIANT PLATELETS SEEN (NORMAL) 05/18/17 06:35 Polychromasia 1+ 05/18/17 06:35 Anisocytosis 1+ 05/18/17 06:35 RBC Morph Micro Appear ABNORMAL (NORMAL) 05/18/17 06:35 Eos Smear Source URINE 05/16/17 22:55 Eos Smear Total Cells NONE SEEN (NONE SEEN) 05/16/17 22:55 PT 10.0 SECONDS (9.5-11.5) 05/15/17 18:56 INR 0.96 (0.5-1.4) 05/15/17 18:56 PTT (Actin FS) 21.6 SECONDS (26.0-38.0) L 05/15/17 18:56 Sodium 141 mEq/L (136-145) 05/19/17 05:05 Potassium 3.7 mEq/L (3.5-5.1) 05/19/17 05:05 Chloride 116 mEq/L (98-107) H 05/19/17 05:05 Carbon Dioxide 20.9 mEq/L (21.0-31.0) L 05/19/17 05:05 Anion Gap 7.8 (7.0-16.0) 05/19/17 05:05 BUN 27 mg/dL (7-25) H 05/19/17 05:05 Creatinine 0.6 mg/dL (0.6-1.2) 05/19/17 05:05 Est GFR ( Amer) TNP 05/19/17 05:05 Est GFR (Non-Af Amer) TNP 05/19/17 05:05 BUN/Creatinine Ratio 45.0 05/19/17 05:05 Glucose 111 mg/dL (70-105) H 05/19/17 05:05 POC Glucose 112 MG/DL (70 - 105) H 05/19/17 05:50 Hemoglobin A1c % 7.5 % (4.0-6.0) H 05/15/17 18:56 Whole Bld Lactic Acid 1.71 mmol/L (0.60-1.99) 05/15/17 18:56 Calcium 8.0 mg/dL (8.6-10.3) L 05/19/17 05:05 Magnesium 1.8 mg/dL (1.9-2.7) L 05/19/17 05:05 Total Bilirubin 0.3 mg/dL (0.3-1.0) 05/19/17 05:05 AST 15 U/L (13-39) 05/19/17 05:05 ALT 23 U/L (7-52) 05/19/17 05:05 Alkaline Phosphatase 46 U/L (34-104) 05/19/17 05:05 Creatine Kinase 20 U/L (30-223) L 05/15/17 18:56 Troponin I 0.02 ng/mL (0.01-0.05) 05/15/17 18:56 B-Natriuretic Peptide 194.0 pg/mL (5.0-100.0) H 05/15/17 18:56 Total Protein 5.1 gm/dL (6.0-8.3) L 05/19/17 05:05 Albumin 2.5 gm/dL (3.7-5.3) L 05/19/17 05:05 Globulin 2.6 gm/dL 05/19/17 05:05 Albumin/Globulin Ratio 1.0 (1.0-1.8) 05/19/17 05:05 Triglycerides 173 mg/dL (<150) H 05/16/17 05:01 Cholesterol 135 mg/dL (<200) 05/16/17 05:01 LDL Cholesterol Direct 97 mg/dL (75-193) 05/16/17 05:01 HDL Cholesterol 32 mg/dL (23-92) 05/16/17 05:01 TSH 0.88 uIU/ml (0.34-5.60) 05/16/17 05:01 Urine Source MIDSTREAM 05/15/17 19:20 Urine Color YELLOW 05/15/17 19:20 Urine Clarity CLEAR (CLEAR) 05/15/17 19:20 Urine pH 6.0 (4.6 - 8.0) 05/15/17 19:20 Ur Specific [place] 1.020 (1.005-1.030) 05/15/17 19:20 Urine Protein NEGATIVE mg/dL (NEGATIVE) 05/15/17 19:20 Urine Glucose (UA) NEGATIVE mg/dL (NEGATIVE) 05/15/17 19:20 Urine Ketones NEGATIVE mg/dL (NEGATIVE) 05/15/17 19:20 Urine Blood NEGATIVE (NEGATIVE) 05/15/17 19:20 Urine Nitrate NEGATIVE (NEGATIVE) 05/15/17 19:20 Urine Bilirubin NEGATIVE (NEGATIVE) 05/15/17 19:20 Urine Urobilinogen 0.2 E.U./dL (0.2 - 1.0) 05/15/17 19:20 Ur Leukocyte Esterase NEGATIVE (NEGATIVE) 05/15/17 19:20 Urine RBC NONE SEEN /hpf (0-5) 05/15/17 19:20 Urine WBC 0-2 /hpf (0-5) 05/15/17 19:20 Ur Epithelial Cells FEW /lpf (FEW) 05/15/17 19:20 Urine Bacteria NONE SEEN /hpf (NONE SEEN) 05/15/17 19:20 Ur Random Sodium 58 mmol/L 05/16/17 22:55 Urine Creatinine 51.8 mg/dl (Not Estab.) 05/16/17 22:55 Urine Microalbumin 390.3 ug/mL (Not Estab.) 05/16/17 22:55 Microalb/Creat Ratio 753.5 mg/g creat (0.0-30.0) H 05/16/17 22:55 Stool Occult Blood POSITIVE (NEGATIVE) 05/19/17 04:42 Blood Type A POSITIVE 05/16/17 09:30 Antibody Screen NEGATIVE 05/16/17 09:30 Crossmatch See Detail 05/16/17 09:30 - Physical Exam Vitals and I&O: Vital Signs Temp 97.1 F 05/19/17 04:00 Pulse 73 05/19/17 08:57 Resp 16 05/19/17 08:57 BP 144/81 05/19/17 04:00 Pulse Ox 99 05/19/17 08:57 Intake & Output 05/18/17 05/19/17 05/19/17 18:59 06:59 18:59 Intake Total 100 1825 Balance 100 1825 Weight (lbs) 58.967 kg Intake: Intake, IV Amount 100 1005 KCL 20mEq/100mL Premix 20 100 meq In 100 ml @ 50 mls/ hr IV Q2H [facility] Rx#: [id number] Potassium Chloride 10 meq 1005 In Sodium Chloride 0.45% 1,000 ml @ 75 mls/hr IV .[id number] [facility] Rx#: [id number] Tube Feeding 720 Other 100 Other: # Voids 2 # Bowel Movements 1 Stool Characteristics Soft Formed Active Medications: Current Medications Acetaminophen (Tylenol) 650 mg PO Q4HR PRN PRN Reason: Pain or Fever >101 Stop: 07/14/17 21:26 Last Admin: 05/16/17 04:34 Dose: 650 mg Acetaminophen/Hydrocodone Bitart ([place]mit[place] 5mg/325mg) 1 tab PO TID PRN PRN Reason: Pain (Mild) Stop: 07/14/17 21:26 Albuterol Sulfate (Albuterol 2.5mg/3ml Neb Ud) 2.5 mg HHN Q4HRT PRN PRN Reason: Shortness of Breath Stop: 07/15/17 15:38 Alprazolam (Xanax) 0.25 mg PO Q12H [facility] Stop: 07/15/17 08:14 Last Admin: 05/18/17 20:45 Dose: 0.25 mg Amlodipine Besylate (Norvasc) 5 mg GT DAILY [facility] Stop: 07/15/17 08:59 Last Admin: 05/18/17 09:45 Dose: 5 mg Docusate Sodium (Colace) 200 mg PO BID [facility] Stop: 07/15/17 08:59 Last Admin: 05/18/17 17:41 Dose: 200 mg Famotidine (Pepcid) 20 mg GT DAILY [facility] Stop: 07/15/17 08:59 Last Admin: 05/18/17 09:47 Dose: 20 mg Hydralazine HCl (Apresoline) 10 mg PO QID PRN PRN Reason: SBP ABOVE 160 Stop: 07/14/17 21:26 Azithromycin 500 mg/ Sodium (Chloride) 250 mls @ 250 mls/hr IV Q24HR [facility] Stop: 07/15/17 09:44 Last Admin: 05/18/17 09:48 Dose: 250 mls/hr Ceftriaxone Sodium 1 gm/ (Dextrose) 50 mls @ 100 mls/hr IV Q24H [facility] Stop: 07/15/17 09:44 Last Admin: 05/18/17 09:47 Dose: 100 mls/hr Sodium Chloride (Nacl 0.45%) 1,000 mls @ 100 mls/hr IV .Q10H [facility] Stop: 07/15/17 14:29 Last Admin: 05/18/17 01:55 Dose: 100 mls/hr Potassium Chloride 10 meq/ (Sodium Chloride) 1,005 mls @ 75 mls/hr IV .[id number] [facility] Stop: 07/17/17 10:19 Last Admin: 05/19/17 03:20 Dose: 75 mls/hr Insulin Aspart (Novolog) 0 units SUBQ Q6HR [facility] PRN Reason: Protocol Stop: 07/16/17 05:59 Last Admin: 05/19/17 06:06 Dose: Not Given Insulin Detemir (Levemir Insulin) 10 units SUBQ HS [facility] PRN Reason: Protocol Stop: 07/16/17 20:59 Last Admin: 05/18/17 20:45 Dose: 10 units Loperamide HCl (Imodium) 2 mg PO Q6H PRN PRN Reason: Diarrhea Stop: 07/14/17 21:26 Magnesium Citrate (Citroma) 17.5 gm PO X1 ONE Stop: 05/19/17 09:43 Magnesium Hydroxide (Milk Of Magnesia) 30 ml PO HS PRN PRN Reason: Constipation Stop: 07/18/17 09:39 Mupirocin (Bactroban Oint) 1 appl NS BID [facility] Stop: 05/22/17 09:01 Last Admin: 05/18/17 17:58 Dose: 1 appl Ondansetron HCl (Zofran Odt) 4 mg SL Q6HR PRN PRN Reason: Nausea Stop: 07/14/17 21:26 General: Cooperative, No acute distress, Other (Sleeping confortable) HEENT: Atraumatic Neck: Supple, +2 carotid pulse wo bruit, Other (Tracheostomy in place) Cardiovascular: Regular rate, Normal S1, Normal S2 Lungs: Other (Rude respiration) Abdomen: Bowel sounds, Soft, Other (PEG in place) Extremities: Other (No edema), no Edema Neurological: Sensation intact Skin: Other (Warm and dry), no Rash Psych/Mental Status: Other (Sleeping but arousable) Assessment/Plan - Assessment Assessment: Patient Na improving, normal creatinine. Will continue to monitor - Plan Plan: Patient has been seen by Pulmonology, and Nephro. Will continue same management. Nutritional Asmnt/Malnutr-PDOC - Dietary Evaluation Malnutrition Findings (Please click <Entered> for more info): Nutritional Asmnt/Malnutrition Start: 05/16/17 13: 09 Text: Status: Complete Freq: Document 05/16/17 13:09 LINH (Rec: 05/16/17 13:17 [email or web address]) Nutritional Asmnt/Malnutrition Patient General Information Nutritional Screening High Risk Screening Diagnosis Azotemia, dehydration, Pertinent Medical Hx/Surgical Hx HTN, asthma/COPD, CVA, DM, recent respiratory failure/PNA requiring intubation and evetually trach and PEG Subjective Information 76 year old female. Lab trigger glucose 489H. Pt made eye contact, mumbled, trach, unable to interview. No severe muscle/fat wasting noted. Discussed with SPIKE Meade who discuseed with MD Brown regarding formula switch to Diabetisource due to glucoer 489H and hx DM. RN stated pt has been toelrating tube feeding well, no residuals. Current Diet Order/ Nutrition Support Isosource at 40ml/hr x 20hrs Pertinent Medications D5w, Colace, Novolog, Zofran Pertinent Labs 05/15: A1c 7.5H 05/16: potassium 3.4L, glucose 489H, BUN 52H, creaitnine 0.9 WNL Nutritional Hx/Data Height 1.57 m Height (Calculated Centimeters) 157.5 Current Weight (lbs) 59.194 kg Weight (Calculated Kilograms) 59.2 Weight (Calculated Grams) 14525.8 [place] Body Weight 110 Weight Status Approriate GI Symptoms Usual diet at home Chart: Diabetisource at 60ml/ hr x 18hrs, providing 1296kcal . Skin Integrity/Comment: Fer 14. Bilateral upper medial thigh redness. Estimated Nutritional Goals BEE in Kcals: Using Current wt Calories/Kcals/Kg CBW 130.5lb/59.3kg Kcals Calculated 1364-1660kcal (23-28kcal/kg) Protein: Using Current wt Protein Calculated 59g (1g/kg) Fluid: ml 1483-1779ml (1ml/kcal) Nutritional Problem 1. Problem Problem Altered nutrition related laboratory values related to Etiology DM aeb Signs/Symptoms: glucose 489 this AM, hx DM Intervention/Recommendation Comments 1. Recommend Diabetisource at 60ml/hr x 20hrs, providing 1200ml total volume, 1440kcal, 72g protein. Expected Outcomes/Goals Expected Outcomes/Goals 1. Pt to meet 100% of estimated nutritional needs on tube feeding with tolerance.
[2017-05-19] MEDS ORDERED: Hydrocodone/APAP 5mg/325mg Tab GT PRN (11:53)
[2017-05-19] MEDS ORDERED: Magnesium Hydroxide (MOM) 30 mL UDC GT PRN (11:54)
[2017-05-19] MEDS: Azithromycin 500 MG in Sodium Chloride 0.9% 250 ML IV SCH (12:17)
[2017-05-19] MEDS: Insulin Detemir 100 units/mL 10mL Vial SUBQ SCH (23:01)
[2017-05-20] MEDS: INSULIN ASPART, RECOMBINANT 100 UNITS/ML SUBQ SCH ×4 (00:47→17:30)
[2017-05-20 07:12] LABS: ALKALINE PHOSPHATASE 48 U/L (34-104); ANION GAP 7.1 (7.0-16.0); BILIRUBIN,TOTAL 0.3 mg/dL (0.3-1.0); BUN - UREA NITROGEN 21 mg/dL (7-25); BUN/CREATININE RATIO 52.5; CALCIUM SERUM 7.3 mg/dL (8.6-10.3); CARBON DIOXIDE 21.2 mEq/L (21.0-31.0); CHLORIDE 108 mEq/L (98-107); CREATININE - SERUM 0.4 mg/dL (0.6-1.2); GLUCOSE 121 mg/dL (70-105); MAGNESIUM 1.8 mg/dL (1.9-2.7); POTASSIUM SERUM 4.3 mEq/L (3.5-5.1); SGOT 13 U/L (13-39); SGPT/ALT 19 U/L (7-52); SODIUM SERUM 132 mEq/L (136-145)
[2017-05-20 07:47] LABS: MEAN CELL VOLUME 90.8 fl (81-100); MEAN CORPUSCULAR HEMOGLOBIN 30.5 pg (27.0-31.0); MEAN CORPUSCULAR HGB CONC 33.6 pg (28.0-36.0); MEAN PLATELET VOLUME 10.9 fl; PLATELET COUNT 63 Th/cmm (150-400); RED BLOOD COUNT 2.63 Mil/cmm (3.80-5.20); RED CELL DISTRIBUTION WIDTH 15.5 % (11.5-20.0)
--- NOTE | 2017-05-20 08:11 | Diagnostic Imaging Report ---
Exam: Portable chest x-ray HISTORY: Aspiration Findings: Portable upright examination of the chest at 1323 hours was reviewed no prior studies available for comparison. Bony thorax is intact. Mediastinal structures midline the heart is not enlarged. Tracheostomy tube midline. Left-sided PICC line terminates in the left axillary vein. There is evidence for left basilar infiltrate and superimposed effusion. Follow-up examination recommended. The right lung parenchyma is well aerated. IMPRESSION: Left basilar infiltrate small effusion.
--- NOTE | 2017-05-20 08:14 | Diagnostic Imaging Report ---
Exam: Orbital examination of chest. HISTORY: Shortness of breath. Findings: Portable upright examination of the chest at 0736 hours reviewed no prior studies available for comparison. Bony thorax intact. Mediastinal structures midline. The heart is enlarged. Tracheostomy tube midline. There is evidence for mild congestion. Atelectatic change in the right base appreciated. The patient significantly rotated. IMPRESSION: cardiomegaly, congestion. Right basilar atelectasis. Follow-up examination recommended.
[2017-05-20 08:23] LABS: HEMATOCRIT 23.9 % (35.0-45.0); WHITE BLOOD COUNT 2.4 Th/cmm (4.8-10.8)
[2017-05-20] MEDS: Docusate Sodium 100 mg/10 mL UD GT SCH ×2 (08:55→16:40)
[2017-05-20] MEDS: Azithromycin 500 MG in Sodium Chloride 0.9% 250 ML IV SCH (09:03)
[2017-05-20 09:12] LABS: ANISOCYTOSIS 1+; BAND NEUTROPHILE 3 % (0-10); EOSINOPHIL 1 % (0-5); NEUTROPHILS 61 % (40-80); PLATELET ESTIMATE DECREASED PLATELETS (NORMAL); PLATELET MORPHOLOGY NORMAL (NORMAL); TOTAL CELLS COUNTED 100
[2017-05-20] MEDS ORDERED: Mag Sulfate 2gm/50mL Premix 2 GM/50 ML BAG IV ONE (12:00)
[2017-05-20] MEDS ORDERED: Sodium Chloride 0.45% 1,000 ML IV SCH (15:09)
[2017-05-20] MEDS ORDERED: Meropenem 1 GM in Sodium Chloride 0.9% 100 ML IV SCH ×3 (18:00→21:00)
[2017-05-20] MEDS ORDERED: Ciprofloxacin 200mg Premix PB 200 MG/100 ML BAG IV SCH (21:00)
[2017-05-20] MEDS: Insulin Detemir 100 units/mL 10mL Vial SUBQ SCH (21:33)
[2017-05-20] MEDS: Meropenem 1 gm in NS 0.9% 100 ML IV SCH (21:34)
--- NOTE | 2017-05-21 00:06 | Admit Criteria Form ---
Admit Criteria Forms - Admit Criteria Diagnosis: HYPONATREMIA; HYPERNATREMIA; HYPOKALEMIA; HYPERKALEMIA; HYPOCALCEMIA; HYPERCALCEMIA Clinical Indications for Inpatient Care (Place 'X' for any and all applicable criteria): Ongoing inpatient care may be indicated for ANY ONE of the following [G](1)(2)(3 )(5): [ ]I. Hyponatremia with ANY ONE of the following: [ ]a) Sodium less than 130 mEq/L (mmol/L) (new) (6)(22) [ ]b) Sodium less than 135 mEq/L (mmol/L) with ANY ONE of the following: [ ]i) Severe medical etiology requiring inpatient management (eg, heart failure, hypovolemia) [ ]ii) Altered mental status [ ]iii) Seizures [X ]II. Hypernatremia with ANY ONE of the following: [X ]a) Sodium greater than 155 mEq/L (mmol/L) [ ]b) Sodium greater than 150 mEq/L (mmol/L) with ANY ONE of the following: [ ] i) Altered mental status [ ]ii) Seizures [ ]iii) Severe medical etiology (eg, hypovolemia, diabetes insipidus) [ ]iv) Severe weakness [ ]v) Severe medical etiology (eg, hemolysis, infection, drug overdose) [ ]III. Hypokalemia with ANY ONE of the following: [ ]a) Potassium less than 2.5 mEq/L (mmol/L) despite outpatient and emergency treatment [ ]b) Potassium less than 3.0 mEq/L (mmol/L) with ANY ONE of the following: [ ]i) Weakness [ ]ii) Cardiac abnormality (eg, arrhythmia, conduction disturbance) [ ]iii) Cardiac ischemia [ ]iv) Ileus [ ]v) Ongoing medical cause requiring inpatient management. ( e.g., acute renal wasting, SIADH) [ ]vi) Other severe symptoms [ ] IV. Hyperkalemia with ANY ONE of the following: [ ]a) Potassium greater than 6.5 mEq/L (mmol/L) [ ]b) Potassium greater than 5 mEq/L (mmol/L) with ANY ONE of the following: [ ]i) Severe ECG findings [H] [ ]ii) Acute worsening of renal failure (creatinine greater than 2.5 mg/dL (221 micromoles/L) or significant elevation for age and size) [ ] V. Hypocalcemia with ANY ONE of the following: [ ]a) Calcium less than 7 mg/dL (1.75 mmol/L) despite outpatient and emergency treatment(19) [ ]b) Calcium less than 8 mg/dL (2 mmol/L) with significant symptoms or findings; examples include: [ ]i) Cardiac abnormality (eg, arrhythmia or conduction disturbance) [ ]ii) Altered mental status [ ]iii) Seizures [ ]iv) Breathing difficulty [ ]v) Muscle spasms [ ]. Hypercalcemia with ANY ONE of the following: [ ]a) Calcium greater than 14 mg/dL (3.5 mmol/L) [ ]b) Calcium greater than 12 mg/dL (3 mmol/L) with ANY ONE of the following: [ ]i) Significant dehydration or hypovolemia as indicated by ANY ONE of the following(2): [ ]1. Clinically significant dehydration as indicated by ANY ONE of the following: [ ]A. Acute loss of weight from baseline (5% of body weight in adults, 9% in pediatric patients) [ ]B. Hemodynamic instability [ ]C. Acute renal failure [ ]D. Serum sodium greater than 150 mEq/L (mmol/L) [ ]2) Dehydration that is persistent indicated by ALL of the following: [ ]A. Oral rehydration therapy not tolerated or insufficient to adequately correct dehydration [ ]B. Appropriate intravenous treatment (eg, fluids ) does not readily correct dehydration ie, after 12 to 24 hours of treatment) [ ]ii) Significant symptoms or findings; examples include: [ ]1) Altered mental status [ ]2) Cardiac abnormality (eg, arrhythmia, conduction disturbance) [ ]3) Cardiac abnormality (eg, arrhythmia, conduction disturbance) The original [employer] content created by [employer] has been revised. The portions of the content which have been revised are identified through the use of italic text or in bold, and [facility] has neither reviewed nor approved the modified material. All other unmodified content is copyright [facility] [employer] Please see references footnoted in the original [facility] edition 2016 Admit Criteria Met?: Yes
[2017-05-21] MEDS: INSULIN ASPART, RECOMBINANT 100 UNITS/ML SUBQ SCH ×4 (00:52→18:04)
[2017-05-21] MEDS: Meropenem 1 gm in NS 0.9% 100 ML IV SCH ×3 (05:30→21:40)
[2017-05-21 06:48] LABS: HEMATOCRIT 27.7 % (35.0-45.0); HEMOGLOBIN 9.5 gm/dL (11.7-16.1); MEAN CELL VOLUME 89.2 fl (81-100); MEAN CORPUSCULAR HEMOGLOBIN 30.6 pg (27.0-31.0); MEAN CORPUSCULAR HGB CONC 34.3 pg (28.0-36.0); MEAN PLATELET VOLUME 9.9 fl; NEUTROPHILE ABSOLUTE 1.3 Th/cmm (1.8-8.0); PLATELET COUNT 71 Th/cmm (150-400); RED CELL DISTRIBUTION WIDTH 15.3 % (11.5-20.0)
[2017-05-21 07:12] LABS: ALB/GLOB RATIO 0.9 (1.0-1.8); ALKALINE PHOSPHATASE 53 U/L (34-104); ANION GAP 7.9 (7.0-16.0); BILIRUBIN,TOTAL 0.3 mg/dL (0.3-1.0); BUN - UREA NITROGEN 22 mg/dL (7-25); BUN/CREATININE RATIO 36.7; CALCIUM SERUM 8.1 mg/dL (8.6-10.3); CARBON DIOXIDE 25.5 mEq/L (21.0-31.0); CHLORIDE 108 mEq/L (98-107); CREATININE - SERUM 0.6 mg/dL (0.6-1.2); GLUCOSE 155 mg/dL (70-105); MAGNESIUM 2.3 mg/dL (1.9-2.7); POTASSIUM SERUM 3.4 mEq/L (3.5-5.1); SGOT 15 U/L (13-39); SGPT/ALT 19 U/L (7-52); SODIUM SERUM 138 mEq/L (136-145)
[2017-05-21 07:39] LABS: WHITE BLOOD COUNT 2.4 Th/cmm (4.8-10.8)
[2017-05-21] MEDS: Docusate Sodium 100 mg/10 mL UD GT SCH ×2 (08:39→16:32)
[2017-05-21 10:11] LABS: IRON SATURATION 23 % (15-55); TIBC (LCI) 126 ug/dL (250-450); UIBC 97 ug/dL (118-369)
[2017-05-21] MEDS ORDERED: Potassium Chloride Elixir 20 mEq /15 mL UDC GT ONE (12:00)
--- NOTE | 2017-05-21 14:14 | General Progress Note ---
Subjective - Review of Systems Service Date: 05/21/17 Subjective: awake, comfortable Objective - Results Result Diagrams: 05/21/17 06:15 05/21/17 06:15 Recent Labs: Laboratory Last Values WBC 2.4 Th/cmm (4.8-10.8) L* 05/21/17 06:15 RBC 3.10 Mil/cmm (3.80-5.20) L 05/21/17 06:15 Hgb 9.5 gm/dL (11.7-16.1) L 05/21/17 06:15 Hct 27.7 % (35.0-45.0) L D 05/21/17 06:15 MCV 89.2 fl (81-100) 05/21/17 06:15 MCH 30.6 pg (27.0-31.0) 05/21/17 06:15 MCHC Differential 34.3 pg (28.0-36.0) 05/21/17 06:15 RDW 15.3 % (11.5-20.0) 05/21/17 06:15 Plt Count 71 Th/cmm (150-400) L 05/21/17 06:15 MPV 9.9 fl 05/21/17 06:15 Band Neutrophils % 3 % (0-10) 05/20/17 06:07 Neutrophils (Manual) 61 % (40-80) 05/20/17 06:07 Lymphocytes 26 % (20-50) 05/20/17 06:07 Monocytes 8 % (2-10) 05/20/17 06:07 Eosinophils 1 % (0-5) 05/20/17 06:07 Metamyelocytes 1 % (0-0) H 05/16/17 05:01 Nucleated RBCs 1.0 % (0-0) H 05/20/17 06:07 Atypical Lymphocytes 1 % 05/20/17 06:07 Platelet Estimate DECREASED PLATELETS (NORMAL) 05/20/17 06:07 Platelet Morphology NORMAL (NORMAL) 05/20/17 06:07 Polychromasia 1+ 05/18/17 06:35 Anisocytosis 1+ 05/20/17 06:07 RBC Morph Micro Appear ABNORMAL (NORMAL) 05/20/17 06:07 Eos Smear Source URINE 05/16/17 22:55 Eos Smear Total Cells NONE SEEN (NONE SEEN) 05/16/17 22:55 PT 10.0 SECONDS (9.5-11.5) 05/15/17 18:56 INR 0.96 (0.5-1.4) 05/15/17 18:56 PTT (Actin FS) 21.6 SECONDS (26.0-38.0) L 05/15/17 18:56 Sodium 138 mEq/L (136-145) 05/21/17 06:15 Potassium 3.4 mEq/L (3.5-5.1) L 05/21/17 06:15 Chloride 108 mEq/L (98-107) H 05/21/17 06:15 Carbon Dioxide 25.5 mEq/L (21.0-31.0) 05/21/17 06:15 Anion Gap 7.9 (7.0-16.0) 05/21/17 06:15 BUN 22 mg/dL (7-25) 05/21/17 06:15 Creatinine 0.6 mg/dL (0.6-1.2) 05/21/17 06:15 Est GFR ( Amer) TNP 05/21/17 06:15 Est GFR (Non-Af Amer) TNP 05/21/17 06:15 BUN/Creatinine Ratio 36.7 05/21/17 06:15 Glucose 155 mg/dL (70-105) H 05/21/17 06:15 POC Glucose 141 MG/DL (70 - 105) H 05/21/17 06:12 Hemoglobin A1c % 7.5 % (4.0-6.0) H 05/15/17 18:56 Whole Bld Lactic Acid 1.71 mmol/L (0.60-1.99) 05/15/17 18:56 Calcium 8.1 mg/dL (8.6-10.3) L 05/21/17 06:15 Magnesium 2.3 mg/dL (1.9-2.7) 05/21/17 06:15 Iron 29 ug/dL (27-139) 05/20/17 06:07 TIBC 126 ug/dL (250-450) L 05/20/17 06:07 Iron Saturation 23 % (15-55) 05/20/17 06:07 Unsaturated IBC 97 ug/dL (118-369) L 05/20/17 06:07 Total Bilirubin 0.3 mg/dL (0.3-1.0) 05/21/17 06:15 AST 15 U/L (13-39) 05/21/17 06:15 ALT 19 U/L (7-52) 05/21/17 06:15 Alkaline Phosphatase 53 U/L (34-104) 05/21/17 06:15 Creatine Kinase 20 U/L (30-223) L 05/15/17 18:56 Troponin I 0.02 ng/mL (0.01-0.05) 05/15/17 18:56 B-Natriuretic Peptide 194.0 pg/mL (5.0-100.0) H 05/15/17 18:56 Total Protein 5.0 gm/dL (6.0-8.3) L 05/21/17 06:15 Albumin 2.4 gm/dL (3.7-5.3) L 05/21/17 06:15 Globulin 2.6 gm/dL 05/21/17 06:15 Albumin/Globulin Ratio 0.9 (1.0-1.8) L 05/21/17 06:15 Triglycerides 173 mg/dL (<150) H 05/16/17 05:01 Cholesterol 135 mg/dL (<200) 05/16/17 05:01 LDL Cholesterol Direct 97 mg/dL (75-193) 05/16/17 05:01 HDL Cholesterol 32 mg/dL (23-92) 05/16/17 05:01 TSH 0.88 uIU/ml (0.34-5.60) 05/16/17 05:01 Urine Source MIDSTREAM 05/15/17 19:20 Urine Color YELLOW 05/15/17 19:20 Urine Clarity CLEAR (CLEAR) 05/15/17 19:20 Urine pH 6.0 (4.6 - 8.0) 05/15/17 19:20 Ur Specific [place] 1.020 (1.005-1.030) 05/15/17 19:20 Urine Protein NEGATIVE mg/dL (NEGATIVE) 05/15/17 19:20 Urine Glucose (UA) NEGATIVE mg/dL (NEGATIVE) 05/15/17 19:20 Urine Ketones NEGATIVE mg/dL (NEGATIVE) 05/15/17 19:20 Urine Blood NEGATIVE (NEGATIVE) 05/15/17 19:20 Urine Nitrate NEGATIVE (NEGATIVE) 05/15/17 19:20 Urine Bilirubin NEGATIVE (NEGATIVE) 05/15/17 19:20 Urine Urobilinogen 0.2 E.U./dL (0.2 - 1.0) 05/15/17 19:20 Ur Leukocyte Esterase NEGATIVE (NEGATIVE) 05/15/17 19:20 Urine RBC NONE SEEN /hpf (0-5) 05/15/17 19:20 Urine WBC 0-2 /hpf (0-5) 05/15/17 19:20 Ur Epithelial Cells FEW /lpf (FEW) 05/15/17 19:20 Urine Bacteria NONE SEEN /hpf (NONE SEEN) 05/15/17 19:20 Urine Osmolality 546 mOsmol/kg 05/16/17 22:55 Ur Random Sodium 58 mmol/L 05/16/17 22:55 Urine Creatinine 51.8 mg/dl (Not Estab.) 05/16/17 22:55 Urine Microalbumin 390.3 ug/mL (Not Estab.) 05/16/17 22:55 Microalb/Creat Ratio 753.5 mg/g creat (0.0-30.0) H 05/16/17 22:55 Stool Occult Blood POSITIVE (NEGATIVE) 05/19/17 04:42 Blood Type A POSITIVE 05/20/17 11:45 Antibody Screen NEGATIVE 05/20/17 11:45 Crossmatch See Detail 05/20/17 11:45 - Physical Exam Vitals and I&O: Vital Signs Temp 98.7 F 05/21/17 12:00 Pulse 66 05/21/17 12:00 Resp 18 05/21/17 12:00 BP 141/76 05/21/17 12:00 Pulse Ox 99 05/21/17 08:20 Intake & Output 05/20/17 05/21/17 05/21/17 18:59 06:59 18:59 Intake Total 948.333 550 Output Total 0 Balance 948.333 550 Weight (lbs) 58.967 kg 58.967 kg Intake: Intake, IV Amount 348.333 200 Meropenem 1 gm In Sodium 200 Chloride 0.9% 100 ml @ 100 mls/hr IV Q8H [facility] Rx# :[id number] Oral 0 0 Tube Feeding 600 350 Output: Stool 0 Other: # Voids 4 4 # Bowel Movements 0 0 Active Medications: Current Medications Acetaminophen (Tylenol) 650 mg GT Q4HR PRN PRN Reason: Pain or Fever >101 Stop: 07/14/17 21:26 Acetaminophen/Hydrocodone Bitart (Hazel 5mg/325mg) 1 tab GT TID PRN PRN Reason: Pain (Mild) Stop: 07/14/17 21:26 Albuterol Sulfate (Albuterol 2.5mg/3ml Neb Ud) 2.5 mg HHN Q4HRT PRN PRN Reason: Shortness of Breath Stop: 07/15/17 15:38 Alprazolam (Xanax) 0.25 mg GT Q12H [facility] Stop: 07/15/17 08:14 Last Admin: 05/21/17 13:12 Dose: Not Given Amlodipine Besylate (Norvasc) 5 mg GT DAILY [facility] Stop: 07/15/17 08:59 Last Admin: 05/21/17 08:39 Dose: 5 mg Docusate Sodium (Colace) 200 mg GT BID [facility] Stop: 07/18/17 16:59 Last Admin: 05/21/17 08:39 Dose: 200 mg Famotidine (Pepcid) 20 mg GT DAILY [facility] Stop: 07/15/17 08:59 Last Admin: 05/21/17 08:39 Dose: 20 mg Hydralazine HCl (Apresoline) 10 mg GT QID PRN PRN Reason: SBP ABOVE 160 Stop: 07/14/17 21:26 Meropenem 1 gm/ Sodium (Chloride) 100 mls @ 100 mls/hr IV Q8H [facility] Stop: 07/19/17 21:29 Last Admin: 05/21/17 13:12 Dose: 100 mls/hr Insulin Aspart (Novolog) 0 units SUBQ Q6HR [facility] PRN Reason: Protocol Stop: 07/16/17 05:59 Last Admin: 05/21/17 12:30 Dose: Not Given Insulin Detemir (Levemir Insulin) 10 units SUBQ HS [facility] PRN Reason: Protocol Stop: 07/16/17 20:59 Last Admin: 05/20/17 21:33 Dose: 10 units Loperamide HCl (Imodium) 2 mg GT Q6H PRN PRN Reason: Diarrhea Stop: 07/14/17 21:26 Magnesium Hydroxide (Milk Of Magnesia) 30 ml GT HS PRN PRN Reason: Constipation Stop: 07/18/17 09:39 Mupirocin (Bactroban Oint) 1 appl NS BID [facility] Stop: 05/22/17 09:01 Last Admin: 05/21/17 08:38 Dose: 1 appl Ondansetron HCl (Zofran Odt) 4 mg SL Q6HR PRN PRN Reason: Nausea Stop: 07/14/17 21:26 Last Admin: 05/21/17 10:12 Dose: 4 mg General: Cooperative, No acute distress, Other (Sleeping confortable) HEENT: Atraumatic Neck: Supple, +2 carotid pulse wo bruit, Other (Tracheostomy in place) Cardiovascular: Regular rate, Normal S1, Normal S2 Lungs: Other (Rude respiration) Abdomen: Bowel sounds, Soft, Other (PEG in place) Extremities: Other (No edema), no Edema Neurological: Sensation intact Skin: Other (Warm and dry), no Rash Psych/Mental Status: Other (Sleeping but arousable) Assessment/Plan - Assessment Assessment: Hypernatremia secondary to dehydration Hypokalemia without hyperaldosteronism Prerenal azotemia Pancytopenia Status post respiratory failure on PMV Type II DM with CKD Essential hypertension CKD Bronchial asthma/COPD Status post CVA Dyslipidemia Rheumatoid arthritis Moderate malnutrition - Plan Plan: Lab - Result Diagrams 05/17/17 05:19 05/17/17 05:19 Current Medications Acetaminophen (Tylenol) 650 mg PO Q4HR PRN PRN Reason: Pain or Fever >101 Stop: 07/14/17 21:26 Last Admin: 05/16/17 04:34 Dose: 650 mg Acetaminophen/Hydrocodone Bitart ([place] 5mg/325mg) 1 tab PO TID PRN PRN Reason: Pain (Mild) Stop: 07/14/17 21:26 Albuterol Sulfate (Albuterol 2.5mg/3ml Neb Ud) 2.5 mg HHN Q4HRT PRN PRN Reason: Shortness of Breath Stop: 07/15/17 15:38 Alprazolam (Xanax) 0.25 mg PO Q12H [facility] Stop: 07/15/17 08:14 Last Admin: 05/17/17 09:06 Dose: 0.25 mg Amlodipine Besylate (Norvasc) 5 mg GT DAILY [facility] Stop: 07/15/17 08:59 Last Admin: 05/17/17 09:06 Dose: 5 mg Docusate Sodium (Colace) 200 mg PO BID [facility] Stop: 07/15/17 08:59 Last Admin: 05/17/17 09:06 Dose: 200 mg Enoxaparin Sodium (Lovenox) 20 mg SUBQ DAILY [facility] Stop: 07/15/17 08:59 Last Admin: 05/17/17 09:09 Dose: 20 mg Famotidine (Pepcid) 20 mg GT DAILY [facility] Stop: 07/15/17 08:59 Last Admin: 05/17/17 09:06 Dose: 20 mg Hydralazine HCl (Apresoline) 10 mg PO QID PRN PRN Reason: SBP ABOVE 160 Stop: 07/14/17 21:26 Azithromycin 500 mg/ Sodium (Chloride) 250 mls @ 250 mls/hr IV Q24HR [facility] Stop: 07/15/17 09:44 Last Admin: 05/17/17 09:07 Dose: 250 mls/hr Ceftriaxone Sodium 1 gm/ (Dextrose) 50 mls @ 100 mls/hr IV Q24H [facility] Stop: 07/15/17 09:44 Last Admin: 05/17/17 10:42 Dose: 100 mls/hr Sodium Chloride (Nacl 0.45%) 1,000 mls @ 100 mls/hr IV .Q10H [facility] Stop: 07/15/17 14:29 Last Admin: 05/17/17 05:54 Dose: 100 mls/hr Potassium Chloride 40 meq/Lidocaine HCl 25 mg/ Sodium Chloride 272.5 mls @ 68 mls/hr IV X1 ONE Stop: 05/17/17 15:24 Insulin Aspart (Novolog) 0 units SUBQ Q6HR [facility] PRN Reason: Protocol Stop: 07/16/17 05:59 Last Admin: 05/17/17 11:59 Dose: 7 ud Insulin Detemir (Levemir Insulin) 10 units SUBQ HS [facility] PRN Reason: Protocol Stop: 07/16/17 20:59 Loperamide HCl (Imodium) 2 mg PO Q6H PRN PRN Reason: Diarrhea Stop: 07/14/17 21:26 Mupirocin (Bactroban Oint) 1 appl NS BID [facility] Stop: 05/22/17 09:01 Ondansetron HCl (Zofran Odt) 4 mg SL Q6HR PRN PRN Reason: Nausea Stop: 07/14/17 21:26 Continue IV fluid half NS Sodium and kidney function improved Replace potassium Follow-up electrolytes, CBC Nutritional Asmnt/Malnutr-PDOC - Dietary Evaluation Malnutrition Findings (Please click <Entered> for more info): Nutritional Asmnt/Malnutrition Start: 05/16/17 13: 09 Text: Status: Complete Freq: Document 05/16/17 13:09 GSUN (Rec: 05/16/17 13:17 GSUN [email or web address]) Nutritional Asmnt/Malnutrition Patient General Information Nutritional Screening High Risk Screening Diagnosis Azotemia, dehydration, Pertinent Medical Hx/Surgical Hx HTN, asthma/COPD, CVA, DM, recent respiratory failure/PNA requiring intubation and evetually trach and PEG Subjective Information 76 year old female. Lab trigger glucose 489H. Pt made eye contact, mumbled, trach, unable to interview. No severe muscle/fat wasting noted. Discussed with SPIKE Meade who discuseed with MD Brown regarding formula switch to Diabetisource due to glucoer 489H and hx DM. RN stated pt has been toelrating tube feeding well, no residuals. Current Diet Order/ Nutrition Support Isosource at 40ml/hr x 20hrs Pertinent Medications D5w, Colace, Novolog, Zofran Pertinent Labs 05/15: A1c 7.5H 05/16: potassium 3.4L, glucose 489H, BUN 52H, creaitnine 0.9 WNL Nutritional Hx/Data Height 1.57 m Height (Calculated Centimeters) 157.5 Current Weight (lbs) 59.194 kg Weight (Calculated Kilograms) 59.2 Weight (Calculated Grams) 29195.8 [place] Body Weight 110 Weight Status Approriate GI Symptoms Usual diet at home Chart: Diabetisource at 60ml/ hr x 18hrs, providing 1296kcal . Skin Integrity/Comment: Fer 14. Bilateral upper medial thigh redness. Estimated Nutritional Goals BEE in Kcals: Using Current wt Calories/Kcals/Kg CBW 130.5lb/59.3kg Kcals Calculated 1364-1660kcal (23-28kcal/kg) Protein: Using Current wt Protein Calculated 59g (1g/kg) Fluid: ml 1483-1779ml (1ml/kcal) Nutritional Problem 1. Problem Problem Altered nutrition related laboratory values related to Etiology DM aeb Signs/Symptoms: glucose 489 this AM, hx DM Intervention/Recommendation Comments 1. Recommend Diabetisource at 60ml/hr x 20hrs, providing 1200ml total volume, 1440kcal, 72g protein. Expected Outcomes/Goals Expected Outcomes/Goals 1. Pt to meet 100% of estimated nutritional needs on tube feeding with tolerance.
[2017-05-21] MEDS ORDERED: Probiotic Screen MC PRN (17:26)
--- NOTE | 2017-05-21 19:28 | Consultation ---
DATE OF CONSULTATION: 05/21/2017 INPATIENT GI CONSULTATION NOTE REFERRING PHYSICIAN: Dr. Brown. REASON FOR CONSULTATION: Anemia. HISTORY OF PRESENT ILLNESS: This is a 76-year-old female with hypertension, asthma, COPD, stroke, diabetes, admitted to the hospital with respiratory failure, pneumonia, requiring intubation. Subsequently, had chronic issues therefore requiring trach placement and PEG placement. The patient was then transferred to a skilled facility where she was looked after but because of derangements in her chemistry, she was transferred back to the hospital for further evaluation. She is otherwise nonverbal and not a great historian. We are asked to see her because of anemia, no overt GI bleeding were noted. She denies having any abdominal pain, nausea, or vomiting. PAST MEDICAL HISTORY: Hypertension, asthma, COPD, stroke, diabetes, respiratory failure, and dysphagia. PAST SURGICAL HISTORY: Trach and PEG. FAMILY HISTORY: Noncontributory. SOCIAL HISTORY: Resident of skilled facility. ALLERGIES: None. CURRENT MEDICATIONS: Tylenol, [place], albuterol, Xanax, Norvasc, Colace, Pepcid, , insulin, Imodium, milk of magnesia, meropenem, and Zofran. REVIEW OF SYSTEMS: Ten point review of systems was performed and the pertinent positive was unobtainable. PHYSICAL EXAMINATION: VITAL SIGNS: Temperature 98.7, breathing 18, pulse of 66, blood pressure 141/76, and satting 99%. GENERAL: In no apparent distress. EYES: Anicteric. NECK: Trached. CHEST: Coarse breath sounds. CARDIOVASCULAR: Regular rate and rhythm. ABDOMEN: Soft, nontender, and nondistended with a G-tube. SKIN: Warm and dry. EXTREMITIES: Reveal no cyanosis. LABORATORY DATA: Show white count 2.4, hemoglobin 9.5, MCV of 89, platelets of 71,000, creatinine 0.6, TIBC 126, iron saturations 23%. LFTs were within normal limits. Stool OB was positive. IMPRESSION: This is a 76-year-old female with anemia, occult blood positive. Her anemia could be explained by blood loss. Workup could entail endoscopy, colonoscopy to look for a gastrointestinal causes. There may be another component such as anemia of chronic disease. Ferritin can also be checked as well. PLAN: 1. Consider EGD, colonoscopy. 2. Check ferritin. 3. Follow H and H and transfuse as needed. 4. Tube feeds as tolerated. Thank you for allowing me to participate. Please call me if any questions. JOB# [id number]
[2017-05-21] MEDS ORDERED: Metoclopramide 5 mg/mL 2mL Vial IVP PRN (21:15)
[2017-05-21] MEDS: Insulin Detemir 100 units/mL 10mL Vial SUBQ SCH (21:59)
[2017-05-22] MEDS: INSULIN ASPART, RECOMBINANT 100 UNITS/ML SUBQ SCH ×5 (00:16→18:11)
[2017-05-22] MEDS: Meropenem 1 gm in NS 0.9% 100 ML IV SCH ×3 (06:39→20:30)
[2017-05-22 07:03] LABS: HEMATOCRIT 31.1 % (35.0-45.0); HEMOGLOBIN 10.6 gm/dL (11.7-16.1); MEAN CELL VOLUME 89.2 fl (81-100); MEAN CORPUSCULAR HEMOGLOBIN 30.5 pg (27.0-31.0); MEAN CORPUSCULAR HGB CONC 34.2 pg (28.0-36.0); MEAN PLATELET VOLUME 10.4 fl; PLATELET COUNT 86 Th/cmm (150-400); RED BLOOD COUNT 3.49 Mil/cmm (3.80-5.20); RED CELL DISTRIBUTION WIDTH 15.9 % (11.5-20.0)
[2017-05-22 07:15] LABS: INR 0.91 (0.5-1.4); PROTHROMBIN TIME (TEST) 9.5 SECONDS (9.5-11.5)
[2017-05-22 07:20] LABS: ANION GAP 8.7 (7.0-16.0); BUN - UREA NITROGEN 15 mg/dL (7-25); CALCIUM SERUM 8.7 mg/dL (8.6-10.3); CARBON DIOXIDE 25.9 mEq/L (21.0-31.0); CHLORIDE 104 mEq/L (98-107); CREATININE - SERUM 0.6 mg/dL (0.6-1.2); GLUCOSE 169 mg/dL (70-105); POTASSIUM SERUM 3.6 mEq/L (3.5-5.1); SODIUM SERUM 135 mEq/L (136-145)
[2017-05-22 08:26] LABS: WHITE BLOOD COUNT 2.6 Th/cmm (4.8-10.8)
[2017-05-22 08:31] LABS: NEUTROPHILS 64 % (40-80); TOTAL CELLS COUNTED 100
[2017-05-22 08:32] LABS: PLATELET ESTIMATE DECREASED PLATELETS (NORMAL)
[2017-05-22] MEDS ORDERED: Meperidine 25 mg/mL 1mL Syr IVP PRN (09:26)
[2017-05-22] MEDS ORDERED: Lactated Ringer 1,000 ML IV SCH (09:30)
[2017-05-22] MEDS: Lactobacillus Rhamnosus 10 Billion CFU Capsule PO SCH (10:30)
[2017-05-22] MEDS: Docusate Sodium 100 mg/10 mL UD GT SCH ×2 (10:51→16:52)
[2017-05-22] MEDS ORDERED: Magnesium Citrate 1.75 GM/300 mL Bottle GT ONE (11:00)
--- NOTE | 2017-05-22 13:31 | Consultation ---
DATE OF CONSULTATION: 05/22/2017 REFERRING PHYSICIAN: Dr. Brown. REASON FOR CONSULTATION: Pancytopenia. HISTORY OF PRESENT ILLNESS: The patient is a 76-year-old female with multiple medical problems, hypertension, COPD, history of CVA and diabetes. She had a history of intubation and gastric tube placement. The patient was admitted with electrolyte abnormalities and anemia and she was found to have leukopenia and thrombocytopenia and therefore, I was asked to evaluate. PAST MEDICAL HISTORY: As mentioned above. PAST SURGICAL HISTORY: Tracheostomy and PEG placement. MEDICATIONS: Reviewed. SOCIAL HISTORY: No history of smoking. Lives with her family prior to the recent illness. HOME MEDICATIONS: Amlodipine, alprazolam, famotidine, hydralazine, Lovenox, Seroquel, insulin, Imodium, Zofran. PHYSICAL EXAMINATION: GENERAL: The patient is awake, not in distress, confused. VITAL SIGNS: Stable. HEENT: Pale complexion. No mucosal lesions. Tracheostomy in place. CHEST: Clear. ABDOMEN: Gastric tube in place, no masses. EXTREMITIES: No edema. No cyanosis. LABORATORY DATA: White count 2.6, neutrophils 60%, hemoglobin 10.6, platelets 86. Since admission, the patient had pancytopenia and there is no prior CBC to compare with. Chest x-ray, no acute changes. ASSESSMENT: Pancytopenia with metamyelocytes and bands and the ____ red blood cells raising suspicion of bone marrow process like myelodysplastic syndrome. The patient had normal thyroid function and I will evaluate for B12 and folate deficiency, spleen ultrasound and if the workup is negative, then a bone marrow biopsy will be required to evaluate for myelodysplastic syndrome. No need for transfusion at this time. Thank you, Dr. Brown, for the opportunity to participate in the care of this interesting case with you. JOB# [id number]
--- NOTE | 2017-05-22 14:00 | General Progress Note ---
Subjective - Review of Systems Service Date: 05/22/17 Subjective: awake, comfortable Objective - Results Result Diagrams: 05/22/17 06:30 05/22/17 06:30 Recent Labs: Laboratory Last Values WBC 2.6 Th/cmm (4.8-10.8) L 05/22/17 06:30 RBC 3.49 Mil/cmm (3.80-5.20) L 05/22/17 06:30 Hgb 10.6 gm/dL (11.7-16.1) L 05/22/17 06:30 Hct 31.1 % (35.0-45.0) L D 05/22/17 06:30 MCV 89.2 fl (81-100) 05/22/17 06:30 MCH 30.5 pg (27.0-31.0) 05/22/17 06:30 MCHC Differential 34.2 pg (28.0-36.0) 05/22/17 06:30 RDW 15.9 % (11.5-20.0) 05/22/17 06:30 Plt Count 86 Th/cmm (150-400) L D 05/22/17 06:30 MPV 10.4 fl 05/22/17 06:30 Band Neutrophils % 3 % (0-10) 05/20/17 06:07 Neutrophils (Manual) 64 % (40-80) 05/22/17 06:30 Lymphocytes 33 % (20-50) 05/22/17 06:30 Monocytes 3 % (2-10) 05/22/17 06:30 Eosinophils 1 % (0-5) 05/20/17 06:07 Metamyelocytes 1 % (0-0) H 05/16/17 05:01 Nucleated RBCs 1.0 % (0-0) H 05/20/17 06:07 Atypical Lymphocytes 1 % 05/20/17 06:07 Platelet Estimate DECREASED PLATELETS (NORMAL) 05/22/17 06:30 Platelet Morphology NORMAL (NORMAL) 05/20/17 06:07 Polychromasia 1+ 05/18/17 06:35 Anisocytosis 1+ 05/20/17 06:07 RBC Morph Micro Appear ABNORMAL (NORMAL) 05/20/17 06:07 Eos Smear Source URINE 05/16/17 22:55 Eos Smear Total Cells NONE SEEN (NONE SEEN) 05/16/17 22:55 PT 9.5 SECONDS (9.5-11.5) 05/22/17 06:30 INR 0.91 (0.5-1.4) 05/22/17 06:30 PTT (Actin FS) 21.6 SECONDS (26.0-38.0) L 05/15/17 18:56 Sodium 135 mEq/L (136-145) L 05/22/17 06:30 Potassium 3.6 mEq/L (3.5-5.1) 05/22/17 06:30 Chloride 104 mEq/L (98-107) 05/22/17 06:30 Carbon Dioxide 25.9 mEq/L (21.0-31.0) 05/22/17 06:30 Anion Gap 8.7 (7.0-16.0) 05/22/17 06:30 BUN 15 mg/dL (7-25) 05/22/17 06:30 Creatinine 0.6 mg/dL (0.6-1.2) 05/22/17 06:30 Est GFR ( Amer) TNP 05/22/17 06:30 Est GFR (Non-Af Amer) TNP 05/22/17 06:30 BUN/Creatinine Ratio 25.0 05/22/17 06:30 Glucose 169 mg/dL (70-105) H 05/22/17 06:30 POC Glucose 170 MG/DL (70 - 105) H 05/22/17 06:33 Hemoglobin A1c % 7.5 % (4.0-6.0) H 05/15/17 18:56 Whole Bld Lactic Acid 1.71 mmol/L (0.60-1.99) 05/15/17 18:56 Calcium 8.7 mg/dL (8.6-10.3) 05/22/17 06:30 Magnesium 2.3 mg/dL (1.9-2.7) 05/21/17 06:15 Iron 29 ug/dL (27-139) 05/20/17 06:07 TIBC 126 ug/dL (250-450) L 05/20/17 06:07 Iron Saturation 23 % (15-55) 05/20/17 06:07 Unsaturated IBC 97 ug/dL (118-369) L 05/20/17 06:07 Total Bilirubin 0.3 mg/dL (0.3-1.0) 05/21/17 06:15 AST 15 U/L (13-39) 05/21/17 06:15 ALT 19 U/L (7-52) 05/21/17 06:15 Alkaline Phosphatase 53 U/L (34-104) 05/21/17 06:15 Creatine Kinase 20 U/L (30-223) L 05/15/17 18:56 Troponin I 0.02 ng/mL (0.01-0.05) 05/15/17 18:56 B-Natriuretic Peptide 194.0 pg/mL (5.0-100.0) H 05/15/17 18:56 Total Protein 5.0 gm/dL (6.0-8.3) L 05/21/17 06:15 Albumin 2.4 gm/dL (3.7-5.3) L 05/21/17 06:15 Globulin 2.6 gm/dL 05/21/17 06:15 Albumin/Globulin Ratio 0.9 (1.0-1.8) L 05/21/17 06:15 Triglycerides 173 mg/dL (<150) H 05/16/17 05:01 Cholesterol 135 mg/dL (<200) 05/16/17 05:01 LDL Cholesterol Direct 97 mg/dL (75-193) 05/16/17 05:01 HDL Cholesterol 32 mg/dL (23-92) 05/16/17 05:01 Carcinoembryonic Ag 2.7 ng/mL (0.0-4.7) 05/20/17 06:07 TSH 0.88 uIU/ml (0.34-5.60) 05/16/17 05:01 Urine Source MIDSTREAM 05/15/17 19:20 Urine Color YELLOW 05/15/17 19:20 Urine Clarity CLEAR (CLEAR) 05/15/17 19:20 Urine pH 6.0 (4.6 - 8.0) 05/15/17 19:20 Ur Specific [place] 1.020 (1.005-1.030) 05/15/17 19:20 Urine Protein NEGATIVE mg/dL (NEGATIVE) 05/15/17 19:20 Urine Glucose (UA) NEGATIVE mg/dL (NEGATIVE) 05/15/17 19:20 Urine Ketones NEGATIVE mg/dL (NEGATIVE) 05/15/17 19:20 Urine Blood NEGATIVE (NEGATIVE) 05/15/17 19:20 Urine Nitrate NEGATIVE (NEGATIVE) 05/15/17 19:20 Urine Bilirubin NEGATIVE (NEGATIVE) 05/15/17 19:20 Urine Urobilinogen 0.2 E.U./dL (0.2 - 1.0) 05/15/17 19:20 Ur Leukocyte Esterase NEGATIVE (NEGATIVE) 05/15/17 19:20 Urine RBC NONE SEEN /hpf (0-5) 05/15/17 19:20 Urine WBC 0-2 /hpf (0-5) 05/15/17 19:20 Ur Epithelial Cells FEW /lpf (FEW) 05/15/17 19:20 Urine Bacteria NONE SEEN /hpf (NONE SEEN) 05/15/17 19:20 Urine Osmolality 546 mOsmol/kg 05/16/17 22:55 Ur Random Sodium 58 mmol/L 05/16/17 22:55 Urine Creatinine 51.8 mg/dl (Not Estab.) 05/16/17 22:55 Urine Microalbumin 390.3 ug/mL (Not Estab.) 05/16/17 22:55 Microalb/Creat Ratio 753.5 mg/g creat (0.0-30.0) H 05/16/17 22:55 Stool Occult Blood POSITIVE (NEGATIVE) 05/19/17 04:42 Blood Type A POSITIVE 05/20/17 11:45 Antibody Screen NEGATIVE 05/20/17 11:45 Crossmatch See Detail 05/20/17 11:45 - Physical Exam Vitals and I&O: Vital Signs Temp 98.6 F 05/22/17 12:00 Pulse 85 05/22/17 12:00 Resp 18 05/22/17 12:00 BP 168/80 05/22/17 12:00 Pulse Ox 98 05/22/17 12:00 Intake & Output 05/21/17 05/22/17 05/22/17 18:59 06:59 18:59 Intake Total 4292 284 3513 Balance 0354 356 1816 Weight (lbs) 58.967 kg 58.967 kg Intake: Intake, IV Amount 100 100 Meropenem 1 gm In Sodium 100 100 Chloride 0.9% 100 ml @ 100 mls/hr IV Q8H [facility] Rx# :[id number] Oral 0 0 Tube Feeding 495 Other 750 1000 Other: # Voids 3 4 # Bowel Movements 1 2 Active Medications: Current Medications Acetaminophen (Tylenol) 650 mg GT Q4HR PRN PRN Reason: Pain or Fever >101 Stop: 07/14/17 21:26 Acetaminophen/Hydrocodone Bitart ([place] 5mg/325mg) 1 tab GT TID PRN PRN Reason: Pain (Mild) Stop: 07/14/17 21:26 Albuterol Sulfate (Albuterol 2.5mg/3ml Neb Ud) 2.5 mg HHN Q4HRT PRN PRN Reason: Shortness of Breath Stop: 07/15/17 15:38 Alprazolam (Xanax) 0.25 mg GT Q12H [facility] Stop: 07/15/17 08:14 Last Admin: 05/22/17 11:50 Dose: Not Given Amlodipine Besylate (Norvasc) 10 mg PO DAILY [facility] Stop: 07/21/17 08:59 Last Admin: 05/22/17 10:51 Dose: 10 mg Docusate Sodium (Colace) 200 mg GT BID [facility] Stop: 07/18/17 16:59 Last Admin: 05/22/17 10:51 Dose: 200 mg Famotidine (Pepcid) 20 mg GT DAILY [facility] Stop: 07/15/17 08:59 Last Admin: 05/22/17 10:31 Dose: 20 mg Hydralazine HCl (Apresoline) 10 mg GT QID PRN PRN Reason: SBP ABOVE 160 Stop: 07/14/17 21:26 Last Admin: 05/22/17 10:31 Dose: 10 mg Meropenem 1 gm/ Sodium (Chloride) 100 mls @ 100 mls/hr IV Q8H [facility] Stop: 07/19/17 21:29 Last Admin: 05/22/17 06:39 Dose: 100 mls/hr Vancomycin HCl 1 gm/ Sodium (Chloride) 250 mls @ 166.667 mls/hr IV Q24HR@0900 [facility] Stop: 07/21/17 10:59 Lactated Ringer's (Lactated Ringer) 1,000 mls @ 0 mls/hr IV .Q0M [facility] PRN Reason: TKO Stop: 05/22/17 15:00 Insulin Aspart (Novolog) 0 units SUBQ Q6HR [facility] PRN Reason: Protocol Stop: 07/16/17 05:59 Last Admin: 05/22/17 06:42 Dose: Not Given Insulin Detemir (Levemir Insulin) 10 units SUBQ HS [facility] PRN Reason: Protocol Stop: 07/16/17 20:59 Last Admin: 05/21/17 21:59 Dose: Not Given Lactobacillus Rhamnosus (Culturelle) 1 each PO DAILY [facility] Stop: 07/21/17 08:59 Last Admin: 05/22/17 10:30 Dose: 1 each Loperamide HCl (Imodium) 2 mg GT Q6H PRN PRN Reason: Diarrhea Stop: 07/14/17 21:26 Magnesium Hydroxide (Milk Of Magnesia) 30 ml GT HS PRN PRN Reason: Constipation Stop: 07/18/17 09:39 Meperidine HCl (Demerol) 12.5 mg IVP UD PRN PRN Reason: POST-OP PAIN Stop: 05/22/17 15:00 Metoclopramide HCl (Reglan) 5 mg IVP Q4HR PRN PRN Reason: Vomiting Stop: 07/20/17 21:14 Last Admin: 05/21/17 21:40 Dose: 5 mg Miscellaneous (Probiotic Screen) 1 ea MC PRN PRN PRN Reason: PROTOCOL Stop: 07/20/17 17:25 Ondansetron HCl (Zofran Odt) 4 mg SL Q6HR PRN PRN Reason: Nausea Stop: 07/14/17 21:26 Last Admin: 05/21/17 10:12 Dose: 4 mg Ondansetron HCl (Zofran) 4 mg IV PRN PRN PRN Reason: Nausea / Vomiting Stop: 07/21/17 09:25 General: Cooperative, No acute distress, Other (Sleeping confortable) HEENT: Atraumatic Neck: Supple, +2 carotid pulse wo bruit, Other (Tracheostomy in place) Cardiovascular: Regular rate, Normal S1, Normal S2 Lungs: Other (Rude respiration) Abdomen: Bowel sounds, Soft, Other (PEG in place) Extremities: Other (No edema), no Edema Neurological: Sensation intact Skin: Other (Warm and dry), no Rash Psych/Mental Status: Other (Sleeping but arousable) Assessment/Plan - Assessment Assessment: Hypernatremia secondary to dehydration Hypokalemia without hyperaldosteronism Prerenal azotemia Pancytopenia Status post respiratory failure on PMV Type II DM with CKD Essential hypertension CKD Bronchial asthma/COPD Status post CVA Dyslipidemia Rheumatoid arthritis Moderate malnutrition - Plan Plan: Lab - Result Diagrams 05/17/17 05:19 05/17/17 05:19 Current Medications Acetaminophen (Tylenol) 650 mg PO Q4HR PRN PRN Reason: Pain or Fever >101 Stop: 07/14/17 21:26 Last Admin: 05/16/17 04:34 Dose: 650 mg Acetaminophen/Hydrocodone Bitart ([place] 5mg/325mg) 1 tab PO TID PRN PRN Reason: Pain (Mild) Stop: 07/14/17 21:26 Albuterol Sulfate (Albuterol 2.5mg/3ml Neb Ud) 2.5 mg HHN Q4HRT PRN PRN Reason: Shortness of Breath Stop: 07/15/17 15:38 Alprazolam (Xanax) 0.25 mg PO Q12H [facility] Stop: 07/15/17 08:14 Last Admin: 05/17/17 09:06 Dose: 0.25 mg Amlodipine Besylate (Norvasc) 5 mg GT DAILY [facility] Stop: 07/15/17 08:59 Last Admin: 05/17/17 09:06 Dose: 5 mg Docusate Sodium (Colace) 200 mg PO BID [facility] Stop: 07/15/17 08:59 Last Admin: 05/17/17 09:06 Dose: 200 mg Enoxaparin Sodium (Lovenox) 20 mg SUBQ DAILY [facility] Stop: 07/15/17 08:59 Last Admin: 05/17/17 09:09 Dose: 20 mg Famotidine (Pepcid) 20 mg GT DAILY [facility] Stop: 07/15/17 08:59 Last Admin: 05/17/17 09:06 Dose: 20 mg Hydralazine HCl (Apresoline) 10 mg PO QID PRN PRN Reason: SBP ABOVE 160 Stop: 07/14/17 21:26 Azithromycin 500 mg/ Sodium (Chloride) 250 mls @ 250 mls/hr IV Q24HR [facility] Stop: 07/15/17 09:44 Last Admin: 05/17/17 09:07 Dose: 250 mls/hr Ceftriaxone Sodium 1 gm/ (Dextrose) 50 mls @ 100 mls/hr IV Q24H [facility] Stop: 07/15/17 09:44 Last Admin: 05/17/17 10:42 Dose: 100 mls/hr Sodium Chloride (Nacl 0.45%) 1,000 mls @ 100 mls/hr IV .Q10H [facility] Stop: 07/15/17 14:29 Last Admin: 05/17/17 05:54 Dose: 100 mls/hr Potassium Chloride 40 meq/Lidocaine HCl 25 mg/ Sodium Chloride 272.5 mls @ 68 mls/hr IV X1 ONE Stop: 05/17/17 15:24 Insulin Aspart (Novolog) 0 units SUBQ Q6HR [facility] PRN Reason: Protocol Stop: 07/16/17 05:59 Last Admin: 05/17/17 11:59 Dose: 7 ud Insulin Detemir (Levemir Insulin) 10 units SUBQ HS [facility] PRN Reason: Protocol Stop: 07/16/17 20:59 Loperamide HCl (Imodium) 2 mg PO Q6H PRN PRN Reason: Diarrhea Stop: 07/14/17 21:26 Mupirocin (Bactroban Oint) 1 appl NS BID [facility] Stop: 05/22/17 09:01 Ondansetron HCl (Zofran Odt) 4 mg SL Q6HR PRN PRN Reason: Nausea Stop: 07/14/17 21:26 Continue IV fluid half NS Sodium and kidney function improved Replace potassium Follow-up electrolytes, CBC Lab - Result Diagrams 05/22/17 06:30 05/22/17 06:30 Nutritional Asmnt/Malnutr-PDOC - Dietary Evaluation Malnutrition Findings (Please click <Entered> for more info): Nutritional Asmnt/Malnutrition Start: 05/16/17 13: 09 Text: Status: Complete Freq: Document 05/16/17 13:09 GSUN (Rec: 05/16/17 13:17 GSUN [email or web address]) Nutritional Asmnt/Malnutrition Patient General Information Nutritional Screening High Risk Screening Diagnosis Azotemia, dehydration, Pertinent Medical Hx/Surgical Hx HTN, asthma/COPD, CVA, DM, recent respiratory failure/PNA requiring intubation and evetually trach and PEG Subjective Information 76 year old female. Lab trigger glucose 489H. Pt made eye contact, mumbled, trach, unable to interview. No severe muscle/fat wasting noted. Discussed with SPIKE Meade who discuseed with MD Brown regarding formula switch to Diabetisource due to glucoer 489H and hx DM. RN stated pt has been toelrating tube feeding well, no residuals. Current Diet Order/ Nutrition Support Isosource at 40ml/hr x 20hrs Pertinent Medications D5w, Colace, Novolog, Zofran Pertinent Labs 05/15: A1c 7.5H 05/16: potassium 3.4L, glucose 489H, BUN 52H, creaitnine 0.9 WNL Nutritional Hx/Data Height 1.57 m Height (Calculated Centimeters) 157.5 Current Weight (lbs) 59.194 kg Weight (Calculated Kilograms) 59.2 Weight (Calculated Grams) 93374.8 [place] Body Weight 110 Weight Status Approriate GI Symptoms Usual diet at home Chart: Diabetisource at 60ml/ hr x 18hrs, providing 1296kcal . Skin Integrity/Comment: Fer 14. Bilateral upper medial thigh redness. Estimated Nutritional Goals BEE in Kcals: Using Current wt Calories/Kcals/Kg CBW 130.5lb/59.3kg Kcals Calculated 1364-1660kcal (23-28kcal/kg) Protein: Using Current wt Protein Calculated 59g (1g/kg) Fluid: ml 1483-1779ml (1ml/kcal) Nutritional Problem 1. Problem Problem Altered nutrition related laboratory values related to Etiology DM aeb Signs/Symptoms: glucose 489 this AM, hx DM Intervention/Recommendation Comments 1. Recommend Diabetisource at 60ml/hr x 20hrs, providing 1200ml total volume, 1440kcal, 72g protein. Expected Outcomes/Goals Expected Outcomes/Goals 1. Pt to meet 100% of estimated nutritional needs on tube feeding with tolerance.
--- NOTE | 2017-05-22 14:05 | Operative Report ---
DATE OF SURGERY: 05/22/2017 PROCEDURE PERFORMED: Esophagogastroduodenoscopy with biopsy. INDICATION FOR PROCEDURE: GI bleeding in the form of occult blood positive stools. CONSENT: Informed consent was obtained from the patient's family after outlining benefits and risks including infection, bleeding, perforation, . ANESTHESIA USED: Propofol given by anesthesiologist. PREOPERATIVE DIAGNOSIS: Gastrointestinal bleed. POSTOPERATIVE DIAGNOSES: 1. Gastritis. 2. Gastrointestinal bleed. DESCRIPTION OF PROCEDURE: The patient was placed on her back. Head was tilted to the side and flexed forward. Upper Olympus endoscope was introduced into the mouth and advanced to the esophagus, which was intubated under direct visualization. Esophageal mucosa was examined on the way down to essentially normal. GE junction was identified at 38 cm. Scope was advanced to the stomach where the gastric mucosa was examined and it showed gastritis. There was erythema involving the body and antrum. There is G-tube in place that was pushed inside its bed showed some erosions and granulation tissue. Scope was advanced through the pylorus to the duodenum where the bulb, second and third portion were examined. They were all normal. Scope was withdrawn to the stomach and retroflexed to examine the cardia and fundus. It did not show any other abnormality. Scope was then straightened and advanced back to the duodenum. Biopsies were taken from the second portion of the duodenum and from the bulb to rule out celiac disease. Scope was then withdrawn to the stomach. Biopsies were taken from the antrum for CLOtest. Scope was then withdrawn while examining the gastric and esophageal mucosa a second time. The patient tolerated the procedure well. There were no immediate postoperative complications. RECOMMENDATIONS: 1. Follow up biopsy results and treat H. pylori if positive. 2. Modify diet if the patient has celiac disease. 3. Continue to monitor H and H. 4. Transfuse as needed. 5. Colonoscopy in the morning if the patient takes the prep. Thank you, Dr. Brown for allowing me to participate in the care of this patient. If you have any further questions, please let me know. JOB# [id number] CRESCENCIO
[2017-05-22] MEDS: Insulin Detemir 100 units/mL 10mL Vial SUBQ SCH (20:29)
[2017-05-23] MEDS: INSULIN ASPART, RECOMBINANT 100 UNITS/ML SUBQ SCH ×5 (01:29→23:55)
[2017-05-23] MEDS: Meropenem 1 gm in NS 0.9% 100 ML IV SCH ×3 (05:03→21:55)
[2017-05-23 07:17] LABS: RED CELL DISTRIBUTION WIDTH 15.4 % (11.5-20.0)
[2017-05-23 07:28] LABS: HEMOGLOBIN 10.4 gm/dL (11.7-16.1); MEAN CELL VOLUME 88.6 fl (81-100); MEAN CORPUSCULAR HEMOGLOBIN 30.7 pg (27.0-31.0); MEAN CORPUSCULAR HGB CONC 34.7 pg (28.0-36.0); MEAN PLATELET VOLUME 9.3 fl; NEUTROPHILE ABSOLUTE 1.2 Th/cmm (1.8-8.0); PLATELET COUNT 107 Th/cmm (150-400); RED BLOOD COUNT 3.39 Mil/cmm (3.80-5.20)
[2017-05-23 07:46] LABS: ANION GAP 9.3 (7.0-16.0); BUN - UREA NITROGEN 13 mg/dL (7-25); CALCIUM SERUM 8.8 mg/dL (8.6-10.3); CARBON DIOXIDE 26.7 mEq/L (21.0-31.0); CHLORIDE 103 mEq/L (98-107); CREATININE - SERUM 0.5 mg/dL (0.6-1.2); GLUCOSE 121 mg/dL (70-105); MAGNESIUM 1.9 mg/dL (1.9-2.7); SODIUM SERUM 136 mEq/L (136-145)
[2017-05-23 08:34] LABS: WHITE BLOOD COUNT 2.2 Th/cmm (4.8-10.8)
[2017-05-23 09:03] LABS: RBC RETICULOCYTE COUNT 3.39 Mil/cmm; RETICULOCYTES % COUNTED 0.4 % (0.5-1.5)
[2017-05-23] MEDS: Lactobacillus Rhamnosus 10 Billion CFU Capsule PO SCH (09:55)
[2017-05-23] MEDS: Docusate Sodium 100 mg/10 mL UD GT SCH ×2 (09:55→17:03)
--- NOTE | 2017-05-23 10:04 | General Progress Note ---
Subjective - Review of Systems Service Date: 05/23/17 Events since last encounter: none Objective - Results Result Diagrams: 05/23/17 06:25 05/23/17 06:25 Recent Labs: Laboratory Last Values WBC 2.2 Th/cmm (4.8-10.8) L* 05/23/17 06:25 RBC 3.39 Mil/cmm (3.80-5.20) L 05/23/17 06:25 Hgb 10.4 gm/dL (11.7-16.1) L 05/23/17 06:25 Hct 30.0 % (37.0-47.0) L 05/23/17 06:25 MCV 88.6 fl (81-100) 05/23/17 06:25 MCH 30.7 pg (27.0-31.0) 05/23/17 06:25 MCHC Differential 34.7 pg (28.0-36.0) 05/23/17 06:25 RDW 15.4 % (11.5-20.0) 05/23/17 06:25 Plt Count 107 Th/cmm (150-400) L D 05/23/17 06:25 MPV 9.3 fl 05/23/17 06:25 Band Neutrophils % 3 % (0-10) 05/20/17 06:07 Neutrophils (Manual) 64 % (40-80) 05/22/17 06:30 Lymphocytes 33 % (20-50) 05/22/17 06:30 Monocytes 3 % (2-10) 05/22/17 06:30 Eosinophils 1 % (0-5) 05/20/17 06:07 Metamyelocytes 1 % (0-0) H 05/16/17 05:01 Nucleated RBCs 1.0 % (0-0) H 05/20/17 06:07 Atypical Lymphocytes 1 % 05/20/17 06:07 Platelet Estimate DECREASED PLATELETS (NORMAL) 05/22/17 06:30 Platelet Morphology NORMAL (NORMAL) 05/20/17 06:07 Polychromasia 1+ 05/18/17 06:35 Anisocytosis 1+ 05/20/17 06:07 RBC Morph Micro Appear ABNORMAL (NORMAL) 05/20/17 06:07 Total Retics Counted 0.4 % (0.5-1.5) L 05/23/17 06:25 Absolute Retic 13.6 Th/cmm 05/23/17 06:25 Corrected Retic Count 0.3 % (0.5-1.5) L 05/23/17 06:25 Eos Smear Source URINE 05/16/17 22:55 Eos Smear Total Cells NONE SEEN (NONE SEEN) 05/16/17 22:55 PT 9.5 SECONDS (9.5-11.5) 05/22/17 06:30 INR 0.91 (0.5-1.4) 05/22/17 06:30 PTT (Actin FS) 21.6 SECONDS (26.0-38.0) L 05/15/17 18:56 Sodium 136 mEq/L (136-145) 05/23/17 06:25 Potassium 3.0 mEq/L (3.5-5.1) L 05/23/17 06:25 Chloride 103 mEq/L (98-107) 05/23/17 06:25 Carbon Dioxide 26.7 mEq/L (21.0-31.0) 05/23/17 06:25 Anion Gap 9.3 (7.0-16.0) 05/23/17 06:25 BUN 13 mg/dL (7-25) 05/23/17 06:25 Creatinine 0.5 mg/dL (0.6-1.2) L 05/23/17 06:25 Est GFR ( Amer) TNP 05/23/17 06:25 Est GFR (Non-Af Amer) TNP 05/23/17 06:25 BUN/Creatinine Ratio 26.0 05/23/17 06:25 Glucose 121 mg/dL (70-105) H 05/23/17 06:25 POC Glucose 125 MG/DL (70 - 105) H 05/23/17 06:08 Hemoglobin A1c % 7.5 % (4.0-6.0) H 05/15/17 18:56 Whole Bld Lactic Acid 1.71 mmol/L (0.60-1.99) 05/15/17 18:56 Calcium 8.8 mg/dL (8.6-10.3) 05/23/17 06:25 Magnesium 1.9 mg/dL (1.9-2.7) 05/23/17 06:25 Iron 29 ug/dL (27-139) 05/20/17 06:07 TIBC 126 ug/dL (250-450) L 05/20/17 06:07 Iron Saturation 23 % (15-55) 05/20/17 06:07 Unsaturated IBC 97 ug/dL (118-369) L 05/20/17 06:07 Total Bilirubin 0.3 mg/dL (0.3-1.0) 05/21/17 06:15 AST 15 U/L (13-39) 05/21/17 06:15 ALT 19 U/L (7-52) 05/21/17 06:15 Alkaline Phosphatase 53 U/L (34-104) 05/21/17 06:15 Creatine Kinase 20 U/L (30-223) L 05/15/17 18:56 Troponin I 0.02 ng/mL (0.01-0.05) 05/15/17 18:56 B-Natriuretic Peptide 194.0 pg/mL (5.0-100.0) H 05/15/17 18:56 Total Protein 5.0 gm/dL (6.0-8.3) L 05/21/17 06:15 Albumin 2.4 gm/dL (3.7-5.3) L 05/21/17 06:15 Globulin 2.6 gm/dL 05/21/17 06:15 Albumin/Globulin Ratio 0.9 (1.0-1.8) L 05/21/17 06:15 Triglycerides 173 mg/dL (<150) H 05/16/17 05:01 Cholesterol 135 mg/dL (<200) 05/16/17 05:01 LDL Cholesterol Direct 97 mg/dL (75-193) 05/16/17 05:01 HDL Cholesterol 32 mg/dL (23-92) 05/16/17 05:01 Carcinoembryonic Ag 2.7 ng/mL (0.0-4.7) 05/20/17 06:07 TSH 0.88 uIU/ml (0.34-5.60) 05/16/17 05:01 Urine Source MIDSTREAM 05/15/17 19:20 Urine Color YELLOW 05/15/17 19:20 Urine Clarity CLEAR (CLEAR) 05/15/17 19:20 Urine pH 6.0 (4.6 - 8.0) 05/15/17 19:20 Ur Specific [place] 1.020 (1.005-1.030) 05/15/17 19:20 Urine Protein NEGATIVE mg/dL (NEGATIVE) 05/15/17 19:20 Urine Glucose (UA) NEGATIVE mg/dL (NEGATIVE) 05/15/17 19:20 Urine Ketones NEGATIVE mg/dL (NEGATIVE) 05/15/17 19:20 Urine Blood NEGATIVE (NEGATIVE) 05/15/17 19:20 Urine Nitrate NEGATIVE (NEGATIVE) 05/15/17 19:20 Urine Bilirubin NEGATIVE (NEGATIVE) 05/15/17 19:20 Urine Urobilinogen 0.2 E.U./dL (0.2 - 1.0) 05/15/17 19:20 Ur Leukocyte Esterase NEGATIVE (NEGATIVE) 05/15/17 19:20 Urine RBC NONE SEEN /hpf (0-5) 05/15/17 19:20 Urine WBC 0-2 /hpf (0-5) 05/15/17 19:20 Ur Epithelial Cells FEW /lpf (FEW) 05/15/17 19:20 Urine Bacteria NONE SEEN /hpf (NONE SEEN) 05/15/17 19:20 Urine Osmolality 546 mOsmol/kg 05/16/17 22:55 Ur Random Sodium 58 mmol/L 05/16/17 22:55 Urine Creatinine 51.8 mg/dl (Not Estab.) 05/16/17 22:55 Urine Microalbumin 390.3 ug/mL (Not Estab.) 05/16/17 22:55 Microalb/Creat Ratio 753.5 mg/g creat (0.0-30.0) H 05/16/17 22:55 Stool Occult Blood POSITIVE (NEGATIVE) 05/19/17 04:42 Blood Type A POSITIVE 05/20/17 11:45 Antibody Screen NEGATIVE 05/20/17 11:45 Crossmatch See Detail 05/20/17 11:45 - Physical Exam Vitals and I&O: Vital Signs Temp 97.6 F 05/23/17 08:00 Pulse 85 05/23/17 09:56 Resp 18 05/23/17 08:06 BP 149/71 05/23/17 09:56 Pulse Ox 98 05/23/17 08:06 Intake & Output 05/22/17 05/23/17 05/23/17 18:59 06:59 18:59 Intake Total 1200 470 Balance 1200 470 Weight (lbs) 58.967 kg 61.348 kg Intake: Intake, IV Amount 200 350 Meropenem 1 gm In Sodium 200 100 Chloride 0.9% 100 ml @ 100 mls/hr IV Q8H [facility] Rx# :[id number] Vancomycin HCl 1 gm In 250 Sodium Chloride 0.9% 250 ml @ 166.667 mls/hr IV Q24HR@0900 [facility] Rx#: [id number] Oral 0 Other 1000 120 Other: # Voids 2 4 # Bowel Movements 2 4 Active Medications: Current Medications Acetaminophen (Tylenol) 650 mg GT Q4HR PRN PRN Reason: Pain or Fever >101 Stop: 07/14/17 21:26 Acetaminophen/Hydrocodone Bitart ([place] 5mg/325mg) 1 tab GT TID PRN PRN Reason: Pain (Mild) Stop: 07/14/17 21:26 Albuterol Sulfate (Albuterol 2.5mg/3ml Neb Ud) 2.5 mg HHN Q4HRT PRN PRN Reason: Shortness of Breath Stop: 07/15/17 15:38 Alprazolam (Xanax) 0.25 mg GT Q12H [facility] Stop: 07/15/17 08:14 Last Admin: 05/22/17 23:06 Dose: 0.25 mg Amlodipine Besylate (Norvasc) 10 mg PO DAILY [facility] Stop: 07/21/17 08:59 Last Admin: 05/23/17 09:55 Dose: Not Given Benazepril HCl (Lotensin) 10 mg PO BID [facility] Stop: 07/22/17 09:29 Last Admin: 05/23/17 09:56 Dose: Not Given Docusate Sodium (Colace) 200 mg GT BID [facility] Stop: 07/18/17 16:59 Last Admin: 05/23/17 09:55 Dose: Not Given Famotidine (Pepcid) 20 mg GT DAILY [facility] Stop: 07/15/17 08:59 Last Admin: 05/23/17 09:55 Dose: Not Given Hydralazine HCl (Apresoline) 10 mg GT QID PRN PRN Reason: SBP ABOVE 160 Stop: 07/14/17 21:26 Last Admin: 05/22/17 10:31 Dose: 10 mg Meropenem 1 gm/ Sodium (Chloride) 100 mls @ 100 mls/hr IV Q8H [facility] Stop: 07/19/17 21:29 Last Admin: 05/23/17 05:03 Dose: 100 mls/hr Vancomycin HCl 1 gm/ Sodium (Chloride) 250 mls @ 166.667 mls/hr IV Q24HR@0900 [facility] Stop: 07/21/17 10:59 Last Admin: 05/23/17 09:29 Dose: 100 mls/hr Potassium Chloride (Potassium Chloride) 20 meq in 100 mls @ 50 mls/hr IV Q2H [facility] Stop: 05/23/17 13:24 Insulin Aspart (Novolog) 0 units SUBQ Q6HR [facility] PRN Reason: Protocol Stop: 07/16/17 05:59 Last Admin: 05/23/17 06:10 Dose: Not Given Insulin Detemir (Levemir Insulin) 10 units SUBQ HS [facility] PRN Reason: Protocol Stop: 07/16/17 20:59 Last Admin: 05/22/17 20:29 Dose: Not Given Lactobacillus Rhamnosus (Culturelle) 1 each PO DAILY [facility] Stop: 07/21/17 08:59 Last Admin: 05/23/17 09:55 Dose: Not Given Loperamide HCl (Imodium) 2 mg GT Q6H PRN PRN Reason: Diarrhea Stop: 07/14/17 21:26 Magnesium Hydroxide (Milk Of Magnesia) 30 ml GT HS PRN PRN Reason: Constipation Stop: 07/18/17 09:39 Metoclopramide HCl (Reglan) 5 mg IVP Q4HR PRN PRN Reason: Vomiting Stop: 07/20/17 21:14 Last Admin: 05/21/17 21:40 Dose: 5 mg Miscellaneous (Probiotic Screen) 1 ea MC PRN PRN PRN Reason: PROTOCOL Stop: 07/20/17 17:25 Ondansetron HCl (Zofran Odt) 4 mg SL Q6HR PRN PRN Reason: Nausea Stop: 07/14/17 21:26 Last Admin: 05/21/17 10:12 Dose: 4 mg Ondansetron HCl (Zofran) 4 mg IV PRN PRN PRN Reason: Nausea / Vomiting Stop: 07/21/17 09:25 General: Cooperative, No acute distress, Other (Sleeping confortable) HEENT: Atraumatic Neck: Supple, +2 carotid pulse wo bruit, Other (Tracheostomy in place) Cardiovascular: Regular rate, Normal S1, Normal S2 Lungs: Other (Rude respiration) Abdomen: Bowel sounds, Soft, Other (PEG in place) Extremities: Other (No edema), no Edema Neurological: Sensation intact Skin: Other (Warm and dry), no Rash Psych/Mental Status: Other (Sleeping but arousable) Assessment/Plan - Assessment Assessment: * Pancytopenia possible MDS Follow abd US, B12, Folic acid Nutritional Asmnt/Malnutr-PDOC - Dietary Evaluation Malnutrition Findings (Please click <Entered> for more info): Nutritional Asmnt/Malnutrition Start: 05/16/17 13: 09 Text: Status: Complete Freq: Document 05/16/17 13:09 [facility] (Rec: 05/16/17 13:17 [id number]) Nutritional Asmnt/Malnutrition Patient General Information Nutritional Screening High Risk Screening Diagnosis Azotemia, dehydration, Pertinent Medical Hx/Surgical Hx HTN, asthma/COPD, CVA, DM, recent respiratory failure/PNA requiring intubation and evetually trach and PEG Subjective Information 76 year old female. Lab trigger glucose 489H. Pt made eye contact, mumbled, trach, unable to interview. No severe muscle/fat wasting noted. Discussed with SPIKE Meade who discuseed with MD Brown regarding formula switch to Diabetisource due to glucoer 489H and hx DM. RN stated pt has been toelrating tube feeding well, no residuals. Current Diet Order/ Nutrition Support Isosource at 40ml/hr x 20hrs Pertinent Medications D5w, Colace, Novolog, Zofran Pertinent Labs 05/15: A1c 7.5H 05/16: potassium 3.4L, glucose 489H, BUN 52H, creaitnine 0.9 WNL Nutritional Hx/Data Height 1.57 m Height (Calculated Centimeters) 157.5 Current Weight (lbs) 59.194 kg Weight (Calculated Kilograms) 59.2 Weight (Calculated Grams) 16500.8 [place] Body Weight 110 Weight Status Approriate GI Symptoms Usual diet at home Chart: Diabetisource at 60ml/ hr x 18hrs, providing 1296kcal . Skin Integrity/Comment: Fer 14. Bilateral upper medial thigh redness. Estimated Nutritional Goals BEE in Kcals: Using Current wt Calories/Kcals/Kg CBW 130.5lb/59.3kg Kcals Calculated 1364-1660kcal (23-28kcal/kg) Protein: Using Current wt Protein Calculated 59g (1g/kg) Fluid: ml 1483-1779ml (1ml/kcal) Nutritional Problem 1. Problem Problem Altered nutrition related laboratory values related to Etiology DM aeb Signs/Symptoms: glucose 489 this AM, hx DM Intervention/Recommendation Comments 1. Recommend Diabetisource at 60ml/hr x 20hrs, providing 1200ml total volume, 1440kcal, 72g protein. Expected Outcomes/Goals Expected Outcomes/Goals 1. Pt to meet 100% of estimated nutritional needs on tube feeding with tolerance.
[2017-05-23] MEDS: KCL 20mEq/100mL Premix 20 MEQ/100 ML PIGGYBACK IV SCH ×2 (10:05→11:37)
--- NOTE | 2017-05-23 12:40 | Diagnostic Imaging Report ---
Abdominal ultrasound HISTORY: Hepatosplenomegaly The liver appears normal in size (14.5 cm length). No focal lesions are seen. The exam of the gallbladder demonstrates intraluminal echogenic density near the neck region with acoustic shadowing. Findings are consistent with cholelithiasis. No biliary dilatation (common bile duct is 3 mm). The pancreas cannot be seen due to bowel gas. The kidneys appear normal bilaterally. The spleen is normal in size (11.0 x 5.3 x 3.3 cm). Question minimal ascites. IMPRESSION: 1. Findings consistent with cholelithiasis 2. Question minimal ascites 3. Normal hepatic and splenic sizes.
--- NOTE | 2017-05-23 12:49 | Operative Report ---
DATE OF SURGERY: 05/23/2017 INPATIENT GASTROINTESTINAL PROCEDURE PROCEDURE: Colonoscopy. REFERRING PHYSICIAN: Dr. Brown. REASON FOR PROCEDURE: Anemia, occult blood positive. CONSENT: Risks, benefits, alternatives, nature, indication, possible outcomes were discussed. Mentioned bleeding, infection, perforation, , disability, cardiopulmonary distress and arrest, missed lesion and cancers, need for surgery. The patient is agreeing ____ provide informed consent. PREOPERATIVE DIAGNOSES: Anemia, occult blood positive. POSTOPERATIVE DIAGNOSIS: Colon polyp. MEDICATIONS: MAC provided by anesthesiologist. DESCRIPTION OF PROCEDURE: The patient was placed on left side. Rectal exam was performed and was normal. Pediatric colonoscope was advanced from the anus to the cecum confirmed by appendiceal orifice and ileocecal valve. Small cecal polyp was seen, removed by forceps. Scope was slowly withdrawn, examining the mucosa along the way. Once in the rectum, retroflexion was performed, scope was straightened and removed along with air. COMPLICATIONS: None. FINDINGS: A 2 mm cecal polyp removed by forceps. RECOMMENDATIONS: 1. Follow up on biopsy. 2. Follow H and H. 3. Consider small bowel follow through. Thank you for allowing me to participate. Please call me if any questions. JOB# [id number]
--- NOTE | 2017-05-23 12:50 | General Progress Note ---
Subjective - Review of Systems Service Date: 05/23/17 Subjective: awake, comfortable Objective - Results Result Diagrams: 05/23/17 06:25 05/23/17 06:25 Recent Labs: Laboratory Last Values WBC 2.2 Th/cmm (4.8-10.8) L* 05/23/17 06:25 RBC 3.39 Mil/cmm (3.80-5.20) L 05/23/17 06:25 Hgb 10.4 gm/dL (11.7-16.1) L 05/23/17 06:25 Hct 30.0 % (37.0-47.0) L 05/23/17 06:25 MCV 88.6 fl (81-100) 05/23/17 06:25 MCH 30.7 pg (27.0-31.0) 05/23/17 06:25 MCHC Differential 34.7 pg (28.0-36.0) 05/23/17 06:25 RDW 15.4 % (11.5-20.0) 05/23/17 06:25 Plt Count 107 Th/cmm (150-400) L D 05/23/17 06:25 MPV 9.3 fl 05/23/17 06:25 Band Neutrophils % 3 % (0-10) 05/20/17 06:07 Neutrophils (Manual) 64 % (40-80) 05/22/17 06:30 Lymphocytes 33 % (20-50) 05/22/17 06:30 Monocytes 3 % (2-10) 05/22/17 06:30 Eosinophils 1 % (0-5) 05/20/17 06:07 Metamyelocytes 1 % (0-0) H 05/16/17 05:01 Nucleated RBCs 1.0 % (0-0) H 05/20/17 06:07 Atypical Lymphocytes 1 % 05/20/17 06:07 Platelet Estimate DECREASED PLATELETS (NORMAL) 05/22/17 06:30 Platelet Morphology NORMAL (NORMAL) 05/20/17 06:07 Polychromasia 1+ 05/18/17 06:35 Anisocytosis 1+ 05/20/17 06:07 RBC Morph Micro Appear ABNORMAL (NORMAL) 05/20/17 06:07 Total Retics Counted 0.4 % (0.5-1.5) L 05/23/17 06:25 Absolute Retic 13.6 Th/cmm 05/23/17 06:25 Corrected Retic Count 0.3 % (0.5-1.5) L 05/23/17 06:25 Eos Smear Source URINE 05/16/17 22:55 Eos Smear Total Cells NONE SEEN (NONE SEEN) 05/16/17 22:55 PT 9.5 SECONDS (9.5-11.5) 05/22/17 06:30 INR 0.91 (0.5-1.4) 05/22/17 06:30 PTT (Actin FS) 21.6 SECONDS (26.0-38.0) L 05/15/17 18:56 Sodium 136 mEq/L (136-145) 05/23/17 06:25 Potassium 3.0 mEq/L (3.5-5.1) L 05/23/17 06:25 Chloride 103 mEq/L (98-107) 05/23/17 06:25 Carbon Dioxide 26.7 mEq/L (21.0-31.0) 05/23/17 06:25 Anion Gap 9.3 (7.0-16.0) 05/23/17 06:25 BUN 13 mg/dL (7-25) 05/23/17 06:25 Creatinine 0.5 mg/dL (0.6-1.2) L 05/23/17 06:25 Est GFR ( Amer) TNP 05/23/17 06:25 Est GFR (Non-Af Amer) TNP 05/23/17 06:25 BUN/Creatinine Ratio 26.0 05/23/17 06:25 Glucose 121 mg/dL (70-105) H 05/23/17 06:25 POC Glucose 150 MG/DL (70 - 105) H 05/23/17 11:28 Hemoglobin A1c % 7.5 % (4.0-6.0) H 05/15/17 18:56 Whole Bld Lactic Acid 1.71 mmol/L (0.60-1.99) 05/15/17 18:56 Calcium 8.8 mg/dL (8.6-10.3) 05/23/17 06:25 Magnesium 1.9 mg/dL (1.9-2.7) 05/23/17 06:25 Iron 29 ug/dL (27-139) 05/20/17 06:07 TIBC 126 ug/dL (250-450) L 05/20/17 06:07 Iron Saturation 23 % (15-55) 05/20/17 06:07 Unsaturated IBC 97 ug/dL (118-369) L 05/20/17 06:07 Total Bilirubin 0.3 mg/dL (0.3-1.0) 05/21/17 06:15 AST 15 U/L (13-39) 05/21/17 06:15 ALT 19 U/L (7-52) 05/21/17 06:15 Alkaline Phosphatase 53 U/L (34-104) 05/21/17 06:15 Creatine Kinase 20 U/L (30-223) L 05/15/17 18:56 Troponin I 0.02 ng/mL (0.01-0.05) 05/15/17 18:56 B-Natriuretic Peptide 194.0 pg/mL (5.0-100.0) H 05/15/17 18:56 Total Protein 5.0 gm/dL (6.0-8.3) L 05/21/17 06:15 Albumin 2.4 gm/dL (3.7-5.3) L 05/21/17 06:15 Globulin 2.6 gm/dL 05/21/17 06:15 Albumin/Globulin Ratio 0.9 (1.0-1.8) L 05/21/17 06:15 Triglycerides 173 mg/dL (<150) H 05/16/17 05:01 Cholesterol 135 mg/dL (<200) 05/16/17 05:01 LDL Cholesterol Direct 97 mg/dL (75-193) 05/16/17 05:01 HDL Cholesterol 32 mg/dL (23-92) 05/16/17 05:01 Carcinoembryonic Ag 2.7 ng/mL (0.0-4.7) 05/20/17 06:07 TSH 0.88 uIU/ml (0.34-5.60) 05/16/17 05:01 Urine Source MIDSTREAM 05/15/17 19:20 Urine Color YELLOW 05/15/17 19:20 Urine Clarity CLEAR (CLEAR) 05/15/17 19:20 Urine pH 6.0 (4.6 - 8.0) 05/15/17 19:20 Ur Specific [place] 1.020 (1.005-1.030) 05/15/17 19:20 Urine Protein NEGATIVE mg/dL (NEGATIVE) 05/15/17 19:20 Urine Glucose (UA) NEGATIVE mg/dL (NEGATIVE) 05/15/17 19:20 Urine Ketones NEGATIVE mg/dL (NEGATIVE) 05/15/17 19:20 Urine Blood NEGATIVE (NEGATIVE) 05/15/17 19:20 Urine Nitrate NEGATIVE (NEGATIVE) 05/15/17 19:20 Urine Bilirubin NEGATIVE (NEGATIVE) 05/15/17 19:20 Urine Urobilinogen 0.2 E.U./dL (0.2 - 1.0) 05/15/17 19:20 Ur Leukocyte Esterase NEGATIVE (NEGATIVE) 05/15/17 19:20 Urine RBC NONE SEEN /hpf (0-5) 05/15/17 19:20 Urine WBC 0-2 /hpf (0-5) 05/15/17 19:20 Ur Epithelial Cells FEW /lpf (FEW) 05/15/17 19:20 Urine Bacteria NONE SEEN /hpf (NONE SEEN) 05/15/17 19:20 Urine Osmolality 546 mOsmol/kg 05/16/17 22:55 Ur Random Sodium 58 mmol/L 05/16/17 22:55 Urine Creatinine 51.8 mg/dl (Not Estab.) 05/16/17 22:55 Urine Microalbumin 390.3 ug/mL (Not Estab.) 05/16/17 22:55 Microalb/Creat Ratio 753.5 mg/g creat (0.0-30.0) H 05/16/17 22:55 Stool Occult Blood POSITIVE (NEGATIVE) 05/19/17 04:42 Blood Type A POSITIVE 05/20/17 11:45 Antibody Screen NEGATIVE 05/20/17 11:45 Crossmatch See Detail 05/20/17 11:45 - Physical Exam Vitals and I&O: Vital Signs Temp 97.6 F 05/23/17 08:00 Pulse 85 05/23/17 09:56 Resp 18 05/23/17 08:06 BP 149/71 05/23/17 09:56 Pulse Ox 98 05/23/17 08:06 Intake & Output 05/22/17 05/23/17 05/23/17 18:59 06:59 18:59 Intake Total 1200 470 76.667 Balance 1200 470 76.667 Weight (lbs) 58.967 kg 61.348 kg Intake: Intake, IV Amount 200 350 76.667 KCL 20mEq/100mL Premix 20 76.667 meq In 100 ml @ 50 mls/ hr IV Q2H [facility] Rx#: [id number] Meropenem 1 gm In Sodium 200 100 Chloride 0.9% 100 ml @ 100 mls/hr IV Q8H [facility] Rx# :[id number] Vancomycin HCl 1 gm In 250 Sodium Chloride 0.9% 250 ml @ 166.667 mls/hr IV Q24HR@0900 [facility] Rx#: [id number] Oral 0 Other 1000 120 Other: # Voids 2 4 # Bowel Movements 2 4 Active Medications: Current Medications Acetaminophen (Tylenol) 650 mg GT Q4HR PRN PRN Reason: Pain or Fever >101 Stop: 07/14/17 21:26 Acetaminophen/Hydrocodone Bitart (Goodwin 5mg/325mg) 1 tab GT TID PRN PRN Reason: Pain (Mild) Stop: 07/14/17 21:26 Albuterol Sulfate (Albuterol 2.5mg/3ml Neb Ud) 2.5 mg HHN Q4HRT PRN PRN Reason: Shortness of Breath Stop: 07/15/17 15:38 Alprazolam (Xanax) 0.25 mg GT Q12H [facility] Stop: 07/15/17 08:14 Last Admin: 05/23/17 11:31 Dose: Not Given Amlodipine Besylate (Norvasc) 10 mg PO DAILY [facility] Stop: 07/21/17 08:59 Last Admin: 05/23/17 09:55 Dose: Not Given Benazepril HCl (Lotensin) 10 mg PO BID [facility] Stop: 07/22/17 09:29 Last Admin: 05/23/17 09:56 Dose: Not Given Docusate Sodium (Colace) 200 mg GT BID [facility] Stop: 07/18/17 16:59 Last Admin: 05/23/17 09:55 Dose: Not Given Famotidine (Pepcid) 20 mg GT DAILY [facility] Stop: 07/15/17 08:59 Last Admin: 05/23/17 09:55 Dose: Not Given Hydralazine HCl (Apresoline) 10 mg GT QID PRN PRN Reason: SBP ABOVE 160 Stop: 07/14/17 21:26 Last Admin: 05/22/17 10:31 Dose: 10 mg Meropenem 1 gm/ Sodium (Chloride) 100 mls @ 100 mls/hr IV Q8H [facility] Stop: 07/19/17 21:29 Last Admin: 05/23/17 05:03 Dose: 100 mls/hr Vancomycin HCl 1 gm/ Sodium (Chloride) 250 mls @ 166.667 mls/hr IV Q24HR@0900 [facility] Stop: 07/21/17 10:59 Last Admin: 05/23/17 09:29 Dose: 100 mls/hr Potassium Chloride (Potassium Chloride) 20 meq in 100 mls @ 50 mls/hr IV Q2H [facility] Stop: 05/23/17 13:24 Last Admin: 05/23/17 11:37 Dose: 50 mls/hr Insulin Aspart (Novolog) 0 units SUBQ Q6HR [facility] PRN Reason: Protocol Stop: 07/16/17 05:59 Last Admin: 05/23/17 11:36 Dose: Not Given Insulin Detemir (Levemir Insulin) 10 units SUBQ HS [facility] PRN Reason: Protocol Stop: 07/16/17 20:59 Last Admin: 05/22/17 20:29 Dose: Not Given Lactobacillus Rhamnosus (Culturelle) 1 each PO DAILY [facility] Stop: 07/21/17 08:59 Last Admin: 05/23/17 09:55 Dose: Not Given Loperamide HCl (Imodium) 2 mg GT Q6H PRN PRN Reason: Diarrhea Stop: 07/14/17 21:26 Magnesium Hydroxide (Milk Of Magnesia) 30 ml GT HS PRN PRN Reason: Constipation Stop: 07/18/17 09:39 Metoclopramide HCl (Reglan) 5 mg IVP Q4HR PRN PRN Reason: Vomiting Stop: 07/20/17 21:14 Last Admin: 05/21/17 21:40 Dose: 5 mg Miscellaneous (Probiotic Screen) 1 ea MC PRN PRN PRN Reason: PROTOCOL Stop: 07/20/17 17:25 Ondansetron HCl (Zofran Odt) 4 mg SL Q6HR PRN PRN Reason: Nausea Stop: 07/14/17 21:26 Last Admin: 05/21/17 10:12 Dose: 4 mg Ondansetron HCl (Zofran) 4 mg IV PRN PRN PRN Reason: Nausea / Vomiting Stop: 07/21/17 09:25 General: Cooperative, No acute distress, Other (Sleeping confortable) HEENT: Atraumatic Neck: Supple, +2 carotid pulse wo bruit, Other (Tracheostomy in place) Cardiovascular: Regular rate, Normal S1, Normal S2 Lungs: Other (few rhonchi) Abdomen: Bowel sounds, Soft, Other (PEG in place) Extremities: Other (No edema), no Edema Neurological: Sensation intact Skin: Other (Warm and dry), no Rash Psych/Mental Status: Other (Sleeping but arousable) Assessment/Plan - Assessment Assessment: Hypernatremia secondary to dehydration Hypokalemia without hyperaldosteronism Prerenal azotemia Pancytopenia Status post respiratory failure on PMV Type II DM with CKD Essential hypertension CKD Bronchial asthma/COPD Status post CVA Dyslipidemia Rheumatoid arthritis Moderate malnutrition - Plan Plan: Lab - Result Diagrams 05/17/17 05:19 05/17/17 05:19 Current Medications Acetaminophen (Tylenol) 650 mg PO Q4HR PRN PRN Reason: Pain or Fever >101 Stop: 07/14/17 21:26 Last Admin: 05/16/17 04:34 Dose: 650 mg Acetaminophen/Hydrocodone Bitart (Goodwin 5mg/325mg) 1 tab PO TID PRN PRN Reason: Pain (Mild) Stop: 07/14/17 21:26 Albuterol Sulfate (Albuterol 2.5mg/3ml Neb Ud) 2.5 mg HHN Q4HRT PRN PRN Reason: Shortness of Breath Stop: 07/15/17 15:38 Alprazolam (Xanax) 0.25 mg PO Q12H [facility] Stop: 07/15/17 08:14 Last Admin: 05/17/17 09:06 Dose: 0.25 mg Amlodipine Besylate (Norvasc) 5 mg GT DAILY [facility] Stop: 07/15/17 08:59 Last Admin: 05/17/17 09:06 Dose: 5 mg Docusate Sodium (Colace) 200 mg PO BID [facility] Stop: 07/15/17 08:59 Last Admin: 05/17/17 09:06 Dose: 200 mg Enoxaparin Sodium (Lovenox) 20 mg SUBQ DAILY [facility] Stop: 07/15/17 08:59 Last Admin: 05/17/17 09:09 Dose: 20 mg Famotidine (Pepcid) 20 mg GT DAILY [facility] Stop: 07/15/17 08:59 Last Admin: 05/17/17 09:06 Dose: 20 mg Hydralazine HCl (Apresoline) 10 mg PO QID PRN PRN Reason: SBP ABOVE 160 Stop: 07/14/17 21:26 Azithromycin 500 mg/ Sodium (Chloride) 250 mls @ 250 mls/hr IV Q24HR [facility] Stop: 07/15/17 09:44 Last Admin: 05/17/17 09:07 Dose: 250 mls/hr Ceftriaxone Sodium 1 gm/ (Dextrose) 50 mls @ 100 mls/hr IV Q24H [facility] Stop: 07/15/17 09:44 Last Admin: 05/17/17 10:42 Dose: 100 mls/hr Sodium Chloride (Nacl 0.45%) 1,000 mls @ 100 mls/hr IV .Q10H [facility] Stop: 07/15/17 14:29 Last Admin: 05/17/17 05:54 Dose: 100 mls/hr Potassium Chloride 40 meq/Lidocaine HCl 25 mg/ Sodium Chloride 272.5 mls @ 68 mls/hr IV X1 ONE Stop: 05/17/17 15:24 Insulin Aspart (Novolog) 0 units SUBQ Q6HR [facility] PRN Reason: Protocol Stop: 07/16/17 05:59 Last Admin: 05/17/17 11:59 Dose: 7 ud Insulin Detemir (Levemir Insulin) 10 units SUBQ HS [facility] PRN Reason: Protocol Stop: 07/16/17 20:59 Loperamide HCl (Imodium) 2 mg PO Q6H PRN PRN Reason: Diarrhea Stop: 07/14/17 21:26 Mupirocin (Bactroban Oint) 1 appl NS BID [facility] Stop: 05/22/17 09:01 Ondansetron HCl (Zofran Odt) 4 mg SL Q6HR PRN PRN Reason: Nausea Stop: 07/14/17 21:26 Continue IV fluid half NS Sodium and kidney function improved Replace potassium Follow-up electrolytes, CBC Lab - Result Diagrams Lab - Result Diagrams 05/23/17 06:25 05/23/17 06:25 Nutritional Asmnt/Malnutr-PDOC - Dietary Evaluation Malnutrition Findings (Please click <Entered> for more info): Nutritional Asmnt/Malnutrition Start: 05/16/17 13: 09 Text: Status: Complete Freq: Document 05/16/17 13:09 LEXLINH (Rec: 05/16/17 13:17 [email or web address] [email or web address]) Nutritional Asmnt/Malnutrition Patient General Information Nutritional Screening High Risk Screening Diagnosis Azotemia, dehydration, Pertinent Medical Hx/Surgical Hx HTN, asthma/COPD, CVA, DM, recent respiratory failure/PNA requiring intubation and evetually trach and PEG Subjective Information 76 year old female. Lab trigger glucose 489H. Pt made eye contact, mumbled, trach, unable to interview. No severe muscle/fat wasting noted. Discussed with SPIKE Meade who discuseed with MD Brown regarding formula switch to Diabetisource due to glucoer 489H and hx DM. RN stated pt has been toelrating tube feeding well, no residuals. Current Diet Order/ Nutrition Support Isosource at 40ml/hr x 20hrs Pertinent Medications D5w, Colace, Novolog, Zofran Pertinent Labs 05/15: A1c 7.5H 05/16: potassium 3.4L, glucose 489H, BUN 52H, creaitnine 0.9 WNL Nutritional Hx/Data Height 1.57 m Height (Calculated Centimeters) 157.5 Current Weight (lbs) 59.194 kg Weight (Calculated Kilograms) 59.2 Weight (Calculated Grams) 24034.8 [place] Body Weight 110 Weight Status Approriate GI Symptoms Usual diet at home Chart: Diabetisource at 60ml/ hr x 18hrs, providing 1296kcal . Skin Integrity/Comment: Fer 14. Bilateral upper medial thigh redness. Estimated Nutritional Goals BEE in Kcals: Using Current wt Calories/Kcals/Kg CBW 130.5lb/59.3kg Kcals Calculated 1364-1660kcal (23-28kcal/kg) Protein: Using Current wt Protein Calculated 59g (1g/kg) Fluid: ml 1483-1779ml (1ml/kcal) Nutritional Problem 1. Problem Problem Altered nutrition related laboratory values related to Etiology DM aeb Signs/Symptoms: glucose 489 this AM, hx DM Intervention/Recommendation Comments 1. Recommend Diabetisource at 60ml/hr x 20hrs, providing 1200ml total volume, 1440kcal, 72g protein. Expected Outcomes/Goals Expected Outcomes/Goals 1. Pt to meet 100% of estimated nutritional needs on tube feeding with tolerance.
[2017-05-23] MEDS ORDERED: Diatrizoate Meglumine/Diatri 30 mL Sol PO ONE (14:00)
--- NOTE | 2017-05-23 14:14 | Pathology Report ---
[id number] Collection date: 05/22/2017 Surgeon: Dr. Shannon Lujan Specimen Description: Duodenum biopsy Gross Description: Received in formalin are three cortes soft tissue fragments ranging from 0.1 to 0.2 cm in greatest dimension. Totally submitted in one cassette. Microscopic Description: The histologic sections show duodenal mucosa with intact intestinal villi, showing no evidence for villous abnormality. Diagnosis: No evidence for celiac disease/sprue. [facility]# [id number] [facility]
--- NOTE | 2017-05-23 15:35 | Diagnostic Imaging Report ---
Small bowel follow-through History: Anemia Comparison: Ultrasound abdomen on 05/23/2017 Technique/procedure: Bilingual Teacher view demonstrates generalized gas-filled loops of bowel. Left basal atelectasis versus infiltrate is also noted. Oral contrast was administered multiple fluoroscopic images were obtained. There is normal transit of contrast from stomach into the small bowel. Gastroesophageal reflux is noted.. Tertiary waves of the esophagus are suspected. Evaluation for focal lesions limited on this exam. There is opacification of the large bowel after 60 minutes. IMPRESSION: No evidence of small bowel obstruction Evaluation for small bowel focal lesions was limited on this exam. Gastroesophageal reflux suspected. There appear to be tertiary waves of the esophagus which may be due to esophageal dysmotility. Left basal atelectasis versus infiltrate.
[2017-05-23] MEDS: Insulin Detemir 100 units/mL 10mL Vial SUBQ SCH (21:55)
[2017-05-24 05:53] LABS: HEMATOCRIT 26.3 % (35.0-45.0); HEMOGLOBIN 8.9 gm/dL (11.7-16.1); MEAN CELL VOLUME 89.9 fl (81-100); MEAN CORPUSCULAR HEMOGLOBIN 30.3 pg (27.0-31.0); MEAN CORPUSCULAR HGB CONC 33.8 pg (28.0-36.0); MEAN PLATELET VOLUME 9.2 fl; NEUTROPHILE ABSOLUTE 1.2 Th/cmm (1.8-8.0); PLATELET COUNT 110 Th/cmm (150-400); RED BLOOD COUNT 2.93 Mil/cmm (3.80-5.20); RED CELL DISTRIBUTION WIDTH 15.6 % (11.5-20.0)
[2017-05-24 06:09] LABS: WHITE BLOOD COUNT 2.4 Th/cmm (4.8-10.8)
[2017-05-24] MEDS: Meropenem 1 gm in NS 0.9% 100 ML IV SCH ×3 (06:15→21:55)
[2017-05-24 06:28] LABS: ANION GAP 7.4 (7.0-16.0); BUN - UREA NITROGEN 16 mg/dL (7-25); CALCIUM SERUM 8.6 mg/dL (8.6-10.3); CARBON DIOXIDE 26.8 mEq/L (21.0-31.0); CHLORIDE 106 mEq/L (98-107); CREATININE - SERUM 0.5 mg/dL (0.6-1.2); GLUCOSE 117 mg/dL (70-105); MAGNESIUM 1.8 mg/dL (1.9-2.7); POTASSIUM SERUM 3.2 mEq/L (3.5-5.1); SODIUM SERUM 137 mEq/L (136-145)
[2017-05-24] MEDS: INSULIN ASPART, RECOMBINANT 100 UNITS/ML SUBQ SCH ×3 (06:51→17:19)
[2017-05-24 07:50] LABS: TOTAL CELLS COUNTED 100
[2017-05-24 07:51] LABS: EOSINOPHIL 3 % (0-5); NEUTROPHILS 56 % (40-80)
--- NOTE | 2017-05-24 08:48 | Diagnostic Imaging Report ---
CHEST X-RAY: AP view INDICATION: Pneumonia COMPARISON: 05/20/2017 FINDINGS: Tracheostomy tube is noted. There is a small left effusion with left basal infiltrates. Resolving right basal airspace disease is noted. Cardiomegaly is noted. IMPRESSION: Small left effusion with left basal infiltrates. Resolving right basal airspace disease is noted. Cardiomegaly.
[2017-05-24] MEDS: Docusate Sodium 100 mg/10 mL UD GT SCH ×2 (08:49→16:26)
[2017-05-24] MEDS: Lactobacillus Rhamnosus 10 Billion CFU Capsule PO SCH (08:51)
[2017-05-24] MEDS ORDERED: Mag Sulfate 2gm/50mL Premix 2 GM/50 ML BAG IV ONE (09:00)
[2017-05-24 10:19] LABS: FOLIC ACID >20.0 ng/mL (>3.0)
[2017-05-24] MEDS: KCL 20mEq/100mL Premix 20 MEQ/100 ML PIGGYBACK IV SCH ×2 (10:59→12:44)
--- NOTE | 2017-05-24 14:43 | General Progress Note ---
Subjective - Review of Systems Service Date: 05/24/17 Subjective: awake, comfortable Objective - Results Result Diagrams: 05/24/17 05:30 05/24/17 05:40 Recent Labs: Laboratory Last Values WBC 2.4 Th/cmm (4.8-10.8) L* 05/24/17 05:30 RBC 2.93 Mil/cmm (3.80-5.20) L 05/24/17 05:30 Hgb 8.9 gm/dL (11.7-16.1) L 05/24/17 05:30 Hct 26.3 % (35.0-45.0) L D 05/24/17 05:30 MCV 89.9 fl (81-100) 05/24/17 05:30 MCH 30.3 pg (27.0-31.0) 05/24/17 05:30 MCHC Differential 33.8 pg (28.0-36.0) 05/24/17 05:30 RDW 15.6 % (11.5-20.0) 05/24/17 05:30 Plt Count 110 Th/cmm (150-400) L 05/24/17 05:30 MPV 9.2 fl 05/24/17 05:30 Band Neutrophils % 3 % (0-10) 05/20/17 06:07 Neutrophils (Manual) 56 % (40-80) 05/24/17 05:30 Lymphocytes 34 % (20-50) 05/24/17 05:30 Monocytes 7 % (2-10) 05/24/17 05:30 Eosinophils 3 % (0-5) 05/24/17 05:30 Metamyelocytes % (0-0) 05/24/17 05:30 Nucleated RBCs 1.0 % (0-0) H 05/20/17 06:07 Atypical Lymphocytes 1 % 05/20/17 06:07 Platelet Estimate DECREASED PLATELETS (NORMAL) 05/22/17 06:30 Platelet Morphology NORMAL (NORMAL) 05/20/17 06:07 Polychromasia 1+ 05/18/17 06:35 Anisocytosis 1+ 05/20/17 06:07 RBC Morph Micro Appear ABNORMAL (NORMAL) 05/20/17 06:07 Total Retics Counted 0.4 % (0.5-1.5) L 05/23/17 06:25 Absolute Retic 13.6 Th/cmm 05/23/17 06:25 Corrected Retic Count 0.3 % (0.5-1.5) L 05/23/17 06:25 Eos Smear Source URINE 05/16/17 22:55 Eos Smear Total Cells NONE SEEN (NONE SEEN) 05/16/17 22:55 PT 9.5 SECONDS (9.5-11.5) 05/22/17 06:30 INR 0.91 (0.5-1.4) 05/22/17 06:30 PTT (Actin FS) 21.6 SECONDS (26.0-38.0) L 05/15/17 18:56 Sodium 137 mEq/L (136-145) 05/24/17 05:40 Potassium 3.2 mEq/L (3.5-5.1) L 05/24/17 05:40 Chloride 106 mEq/L (98-107) 05/24/17 05:40 Carbon Dioxide 26.8 mEq/L (21.0-31.0) 05/24/17 05:40 Anion Gap 7.4 (7.0-16.0) 05/24/17 05:40 BUN 16 mg/dL (7-25) 05/24/17 05:40 Creatinine 0.5 mg/dL (0.6-1.2) L 05/24/17 05:40 Est GFR ( Amer) TNP 05/24/17 05:40 Est GFR (Non-Af Amer) TNP 05/24/17 05:40 BUN/Creatinine Ratio 32.0 05/24/17 05:40 Glucose 117 mg/dL (70-105) H 05/24/17 05:40 POC Glucose 178 MG/DL (70 - 105) H 05/24/17 11:04 Hemoglobin A1c % 7.5 % (4.0-6.0) H 05/15/17 18:56 Whole Bld Lactic Acid 1.71 mmol/L (0.60-1.99) 05/15/17 18:56 Calcium 8.6 mg/dL (8.6-10.3) 05/24/17 05:40 Magnesium 1.8 mg/dL (1.9-2.7) L 05/24/17 05:40 Iron 29 ug/dL (27-139) 05/20/17 06:07 TIBC 126 ug/dL (250-450) L 05/20/17 06:07 Iron Saturation 23 % (15-55) 05/20/17 06:07 Unsaturated IBC 97 ug/dL (118-369) L 05/20/17 06:07 Ferritin 1243 ng/mL (15-150) H 05/23/17 06:25 Total Bilirubin 0.3 mg/dL (0.3-1.0) 05/21/17 06:15 AST 15 U/L (13-39) 05/21/17 06:15 ALT 19 U/L (7-52) 05/21/17 06:15 Alkaline Phosphatase 53 U/L (34-104) 05/21/17 06:15 Creatine Kinase 20 U/L (30-223) L 05/15/17 18:56 Troponin I 0.02 ng/mL (0.01-0.05) 05/15/17 18:56 B-Natriuretic Peptide 194.0 pg/mL (5.0-100.0) H 05/15/17 18:56 Total Protein 5.0 gm/dL (6.0-8.3) L 05/21/17 06:15 Albumin 2.4 gm/dL (3.7-5.3) L 05/21/17 06:15 Globulin 2.6 gm/dL 05/21/17 06:15 Albumin/Globulin Ratio 0.9 (1.0-1.8) L 05/21/17 06:15 Triglycerides 173 mg/dL (<150) H 05/16/17 05:01 Cholesterol 135 mg/dL (<200) 05/16/17 05:01 LDL Cholesterol Direct 97 mg/dL (75-193) 05/16/17 05:01 HDL Cholesterol 32 mg/dL (23-92) 05/16/17 05:01 Carcinoembryonic Ag 2.7 ng/mL (0.0-4.7) 05/20/17 06:07 Vitamin B12 1097 pg/mL (211-946) H 05/23/17 06:25 Folic Acid >20.0 ng/mL (>3.0) 05/23/17 06:25 TSH 0.88 uIU/ml (0.34-5.60) 05/16/17 05:01 Urine Source MIDSTREAM 05/15/17 19:20 Urine Color YELLOW 05/15/17 19:20 Urine Clarity CLEAR (CLEAR) 05/15/17 19:20 Urine pH 6.0 (4.6 - 8.0) 05/15/17 19:20 Ur Specific [place] 1.020 (1.005-1.030) 05/15/17 19:20 Urine Protein NEGATIVE mg/dL (NEGATIVE) 05/15/17 19:20 Urine Glucose (UA) NEGATIVE mg/dL (NEGATIVE) 05/15/17 19:20 Urine Ketones NEGATIVE mg/dL (NEGATIVE) 05/15/17 19:20 Urine Blood NEGATIVE (NEGATIVE) 05/15/17 19:20 Urine Nitrate NEGATIVE (NEGATIVE) 05/15/17 19:20 Urine Bilirubin NEGATIVE (NEGATIVE) 05/15/17 19:20 Urine Urobilinogen 0.2 E.U./dL (0.2 - 1.0) 05/15/17 19:20 Ur Leukocyte Esterase NEGATIVE (NEGATIVE) 05/15/17 19:20 Urine RBC NONE SEEN /hpf (0-5) 05/15/17 19:20 Urine WBC 0-2 /hpf (0-5) 05/15/17 19:20 Ur Epithelial Cells FEW /lpf (FEW) 05/15/17 19:20 Urine Bacteria NONE SEEN /hpf (NONE SEEN) 05/15/17 19:20 Urine Osmolality 546 mOsmol/kg 05/16/17 22:55 Ur Random Sodium 58 mmol/L 05/16/17 22:55 Urine Creatinine 51.8 mg/dl (Not Estab.) 05/16/17 22:55 Urine Microalbumin 390.3 ug/mL (Not Estab.) 05/16/17 22:55 Microalb/Creat Ratio 753.5 mg/g creat (0.0-30.0) H 05/16/17 22:55 Stool Occult Blood POSITIVE (NEGATIVE) 05/19/17 04:42 Helicobacter pylori Ab NEGATIVE (NEGATIVE) 05/22/17 09:43 Blood Type A POSITIVE 05/20/17 11:45 Antibody Screen NEGATIVE 05/20/17 11:45 Crossmatch See Detail 05/20/17 11:45 - Physical Exam Vitals and I&O: Vital Signs Temp 97.3 F 05/24/17 11:20 Pulse 75 05/24/17 11:20 Resp 18 05/24/17 13:00 BP 143/72 05/24/17 11:20 Pulse Ox 99 05/24/17 11:20 Intake & Output 05/23/17 05/24/17 05/24/17 18:59 06:59 18:59 Intake Total 996.208 8201 437.5 Balance 039.718 2456 437.5 Weight (lbs) 60.781 kg Intake: Intake, IV Amount 426.667 100 437.5 KCL 20mEq/100mL Premix 20 76.667 meq In 100 ml @ 50 mls/ hr IV Q2H [facility] Rx#: [id number] KCL 20mEq/100mL Premix 20 87.5 meq In 100 ml @ 50 mls/ hr IV Q2H [facility] Rx#: [id number] Meropenem 1 gm In Sodium 100 100 100 Chloride 0.9% 100 ml @ 100 mls/hr IV Q8H [facility] Rx# :[id number] Vancomycin HCl 1 gm In 250 250 Sodium Chloride 0.9% 250 ml @ 166.667 mls/hr IV Q24HR@0900 [facility] Rx#: [id number] Oral 0 Tube Feeding 740 Other 200 Other: # Voids 3 # Bowel Movements 3 Stool Characteristics Soft Active Medications: Current Medications Acetaminophen (Tylenol) 650 mg GT Q4HR PRN PRN Reason: Pain or Fever >101 Stop: 07/14/17 21:26 Acetaminophen/Hydrocodone Bitart ([place] 5mg/325mg) 1 tab GT TID PRN PRN Reason: Pain (Mild) Stop: 07/14/17 21:26 Albuterol Sulfate (Albuterol 2.5mg/3ml Neb Ud) 2.5 mg HHN Q4HRT PRN PRN Reason: Shortness of Breath Stop: 07/15/17 15:38 Alprazolam (Xanax) 0.25 mg GT Q12H [facility] Stop: 07/15/17 08:14 Last Admin: 05/24/17 11:09 Dose: Not Given Amlodipine Besylate (Norvasc) 10 mg PO DAILY [facility] Stop: 07/21/17 08:59 Last Admin: 05/24/17 08:50 Dose: 10 mg Benazepril HCl (Lotensin) 10 mg PO BID [facility] Stop: 07/22/17 09:29 Last Admin: 05/24/17 08:50 Dose: 10 mg Docusate Sodium (Colace) 200 mg GT BID [facility] Stop: 07/18/17 16:59 Last Admin: 05/24/17 08:49 Dose: 200 mg Famotidine (Pepcid) 20 mg GT DAILY [facility] Stop: 07/15/17 08:59 Last Admin: 05/24/17 08:49 Dose: 20 mg Hydralazine HCl (Apresoline) 10 mg GT QID PRN PRN Reason: SBP ABOVE 160 Stop: 07/14/17 21:26 Last Admin: 05/22/17 10:31 Dose: 10 mg Meropenem 1 gm/ Sodium (Chloride) 100 mls @ 100 mls/hr IV Q8H [facility] Stop: 07/19/17 21:29 Last Admin: 05/24/17 12:42 Dose: 100 mls/hr Vancomycin HCl 1 gm/ Sodium (Chloride) 250 mls @ 166.667 mls/hr IV Q24HR@0900 [facility] Stop: 07/21/17 10:59 Last Infusion: 05/24/17 10:23 Dose: Infused Insulin Aspart (Novolog) 0 units SUBQ Q6HR [facility] PRN Reason: Protocol Stop: 07/16/17 05:59 Last Admin: 05/24/17 11:21 Dose: 3 unit Insulin Detemir (Levemir Insulin) 10 units SUBQ HS [facility] PRN Reason: Protocol Stop: 07/16/17 20:59 Last Admin: 05/23/17 21:55 Dose: 10 units Lactobacillus Rhamnosus (Culturelle) 1 each PO DAILY [facility] Stop: 07/21/17 08:59 Last Admin: 05/24/17 08:51 Dose: Not Given Loperamide HCl (Imodium) 2 mg GT Q6H PRN PRN Reason: Diarrhea Stop: 07/14/17 21:26 Magnesium Hydroxide (Milk Of Magnesia) 30 ml GT HS PRN PRN Reason: Constipation Stop: 07/18/17 09:39 Metoclopramide HCl (Reglan) 5 mg IVP Q4HR PRN PRN Reason: Vomiting Stop: 07/20/17 21:14 Last Admin: 05/21/17 21:40 Dose: 5 mg Miscellaneous (Probiotic Screen) 1 ea MC PRN PRN PRN Reason: PROTOCOL Stop: 07/20/17 17:25 Miscellaneous (Vancomycin Iv Per Pharmacy) 1 ea MC PRN PRN PRN Reason: DOSE VANCOMYCIN Stop: 07/23/17 10:50 Ondansetron HCl (Zofran Odt) 4 mg SL Q6HR PRN PRN Reason: Nausea Stop: 07/14/17 21:26 Last Admin: 05/21/17 10:12 Dose: 4 mg Ondansetron HCl (Zofran) 4 mg IV PRN PRN PRN Reason: Nausea / Vomiting Stop: 07/21/17 09:25 Potassium Chloride (Klor-Con) 20 meq PO DAILY [facility] Stop: 07/24/17 08:59 General: Cooperative, No acute distress, Other (Sleeping confortable) HEENT: Atraumatic Neck: Supple, +2 carotid pulse wo bruit, Other (Tracheostomy in place) Cardiovascular: Regular rate, Normal S1, Normal S2 Lungs: Other (few rhonchi) Abdomen: Bowel sounds, Soft, Other (PEG in place) Extremities: Other (No edema), no Edema Neurological: Sensation intact Skin: Other (Warm and dry), no Rash Psych/Mental Status: Other (Sleeping but arousable) Assessment/Plan - Assessment Assessment: Hypernatremia secondary to dehydration Hypokalemia without hyperaldosteronism Prerenal azotemia Pancytopenia Status post respiratory failure on PMV Type II DM with CKD Essential hypertension CKD Bronchial asthma/COPD Status post CVA Dyslipidemia Rheumatoid arthritis Moderate malnutrition - Plan Plan: Lab - Result Diagrams 05/17/17 05:19 05/17/17 05:19 Current Medications Acetaminophen (Tylenol) 650 mg PO Q4HR PRN PRN Reason: Pain or Fever >101 Stop: 07/14/17 21:26 Last Admin: 05/16/17 04:34 Dose: 650 mg Acetaminophen/Hydrocodone Bitart ([place] 5mg/325mg) 1 tab PO TID PRN PRN Reason: Pain (Mild) Stop: 07/14/17 21:26 Albuterol Sulfate (Albuterol 2.5mg/3ml Neb Ud) 2.5 mg HHN Q4HRT PRN PRN Reason: Shortness of Breath Stop: 07/15/17 15:38 Alprazolam (Xanax) 0.25 mg PO Q12H [facility] Stop: 07/15/17 08:14 Last Admin: 05/17/17 09:06 Dose: 0.25 mg Amlodipine Besylate (Norvasc) 5 mg GT DAILY [facility] Stop: 07/15/17 08:59 Last Admin: 05/17/17 09:06 Dose: 5 mg Docusate Sodium (Colace) 200 mg PO BID [facility] Stop: 07/15/17 08:59 Last Admin: 05/17/17 09:06 Dose: 200 mg Enoxaparin Sodium (Lovenox) 20 mg SUBQ DAILY [facility] Stop: 07/15/17 08:59 Last Admin: 05/17/17 09:09 Dose: 20 mg Famotidine (Pepcid) 20 mg GT DAILY [facility] Stop: 07/15/17 08:59 Last Admin: 05/17/17 09:06 Dose: 20 mg Hydralazine HCl (Apresoline) 10 mg PO QID PRN PRN Reason: SBP ABOVE 160 Stop: 07/14/17 21:26 Azithromycin 500 mg/ Sodium (Chloride) 250 mls @ 250 mls/hr IV Q24HR [facility] Stop: 07/15/17 09:44 Last Admin: 05/17/17 09:07 Dose: 250 mls/hr Ceftriaxone Sodium 1 gm/ (Dextrose) 50 mls @ 100 mls/hr IV Q24H [facility] Stop: 07/15/17 09:44 Last Admin: 05/17/17 10:42 Dose: 100 mls/hr Sodium Chloride (Nacl 0.45%) 1,000 mls @ 100 mls/hr IV .Q10H [facility] Stop: 07/15/17 14:29 Last Admin: 05/17/17 05:54 Dose: 100 mls/hr Potassium Chloride 40 meq/Lidocaine HCl 25 mg/ Sodium Chloride 272.5 mls @ 68 mls/hr IV X1 ONE Stop: 05/17/17 15:24 Insulin Aspart (Novolog) 0 units SUBQ Q6HR [facility] PRN Reason: Protocol Stop: 07/16/17 05:59 Last Admin: 05/17/17 11:59 Dose: 7 ud Insulin Detemir (Levemir Insulin) 10 units SUBQ HS [facility] PRN Reason: Protocol Stop: 07/16/17 20:59 Loperamide HCl (Imodium) 2 mg PO Q6H PRN PRN Reason: Diarrhea Stop: 07/14/17 21:26 Mupirocin (Bactroban Oint) 1 appl NS BID [facility] Stop: 05/22/17 09:01 Ondansetron HCl (Zofran Odt) 4 mg SL Q6HR PRN PRN Reason: Nausea Stop: 07/14/17 21:26 Continue IV fluid half NS Sodium and kidney function improved Replace potassium Follow-up electrolytes, CBC still w/ pancytopenia Lab - Result Diagrams 05/24/17 05:30 05/24/17 05:40 25 Nutritional Asmnt/Malnutr-PDOC - Dietary Evaluation Malnutrition Findings (Please click <Entered> for more info): Nutritional Asmnt/Malnutrition Start: 05/16/17 13: 09 Text: Status: Complete Freq: Document 05/16/17 13:09 GSUN (Rec: 05/16/17 13:17 GSUN [email or web address]) Nutritional Asmnt/Malnutrition Patient General Information Nutritional Screening High Risk Screening Diagnosis Azotemia, dehydration, Pertinent Medical Hx/Surgical Hx HTN, asthma/COPD, CVA, DM, recent respiratory failure/PNA requiring intubation and evetually trach and PEG Subjective Information 76 year old female. Lab trigger glucose 489H. Pt made eye contact, mumbled, trach, unable to interview. No severe muscle/fat wasting noted. Discussed with SPIKE Meade who discuseed with MD Brown regarding formula switch to Diabetisource due to glucoer 489H and hx DM. RN stated pt has been toelrating tube feeding well, no residuals. Current Diet Order/ Nutrition Support Isosource at 40ml/hr x 20hrs Pertinent Medications D5w, Colace, Novolog, Zofran Pertinent Labs 05/15: A1c 7.5H 05/16: potassium 3.4L, glucose 489H, BUN 52H, creaitnine 0.9 WNL Nutritional Hx/Data Height 1.57 m Height (Calculated Centimeters) 157.5 Current Weight (lbs) 59.194 kg Weight (Calculated Kilograms) 59.2 Weight (Calculated Grams) 30208.8 [place] Body Weight 110 Weight Status Approriate GI Symptoms Usual diet at home Chart: Diabetisource at 60ml/ hr x 18hrs, providing 1296kcal . Skin Integrity/Comment: Fer 14. Bilateral upper medial thigh redness. Estimated Nutritional Goals BEE in Kcals: Using Current wt Calories/Kcals/Kg CBW 130.5lb/59.3kg Kcals Calculated 1364-1660kcal (23-28kcal/kg) Protein: Using Current wt Protein Calculated 59g (1g/kg) Fluid: ml 1483-1779ml (1ml/kcal) Nutritional Problem 1. Problem Problem Altered nutrition related laboratory values related to Etiology DM aeb Signs/Symptoms: glucose 489 this AM, hx DM Intervention/Recommendation Comments 1. Recommend Diabetisource at 60ml/hr x 20hrs, providing 1200ml total volume, 1440kcal, 72g protein. Expected Outcomes/Goals Expected Outcomes/Goals 1. Pt to meet 100% of estimated nutritional needs on tube feeding with tolerance.
--- NOTE | 2017-05-24 15:01 | Pathology Report ---
[id number] Collection Date: 05/24/2017 Surgeon: Dr. Manoj James Specimen Description: Cecal polyp. Gross Description: Received in formalin is a single fragment of cortes soft tissue measuring 0.2 cm in greatest dimension. Totally submitted in one cassette. Microscopic Description: The histologic sections show a polypoid portion of benign colon mucosa with chronic inflammation present consisting of lymphocytes and plasma cells. There are no adenomatous or hyperplastic glandular changes appreciated. There is also no evidence for ulceration or atypia. Diagnosis: Nonspecific chronic inflammation, cecal biopsy. [facility]# [id number] [facility]
--- NOTE | 2017-05-24 16:36 | General Progress Note ---
Subjective - Review of Systems Service Date: 05/24/17 Objective - Results Result Diagrams: 05/24/17 05:30 05/24/17 05:40 Recent Labs: Laboratory Last Values WBC 2.4 Th/cmm (4.8-10.8) L* 05/24/17 05:30 RBC 2.93 Mil/cmm (3.80-5.20) L 05/24/17 05:30 Hgb 8.9 gm/dL (11.7-16.1) L 05/24/17 05:30 Hct 26.3 % (35.0-45.0) L D 05/24/17 05:30 MCV 89.9 fl (81-100) 05/24/17 05:30 MCH 30.3 pg (27.0-31.0) 05/24/17 05:30 MCHC Differential 33.8 pg (28.0-36.0) 05/24/17 05:30 RDW 15.6 % (11.5-20.0) 05/24/17 05:30 Plt Count 110 Th/cmm (150-400) L 05/24/17 05:30 MPV 9.2 fl 05/24/17 05:30 Band Neutrophils % 3 % (0-10) 05/20/17 06:07 Neutrophils (Manual) 56 % (40-80) 05/24/17 05:30 Lymphocytes 34 % (20-50) 05/24/17 05:30 Monocytes 7 % (2-10) 05/24/17 05:30 Eosinophils 3 % (0-5) 05/24/17 05:30 Metamyelocytes % (0-0) 05/24/17 05:30 Nucleated RBCs 1.0 % (0-0) H 05/20/17 06:07 Atypical Lymphocytes 1 % 05/20/17 06:07 Platelet Estimate DECREASED PLATELETS (NORMAL) 05/22/17 06:30 Platelet Morphology NORMAL (NORMAL) 05/20/17 06:07 Polychromasia 1+ 05/18/17 06:35 Anisocytosis 1+ 05/20/17 06:07 RBC Morph Micro Appear ABNORMAL (NORMAL) 05/20/17 06:07 Total Retics Counted 0.4 % (0.5-1.5) L 05/23/17 06:25 Absolute Retic 13.6 Th/cmm 05/23/17 06:25 Corrected Retic Count 0.3 % (0.5-1.5) L 05/23/17 06:25 Eos Smear Source URINE 05/16/17 22:55 Eos Smear Total Cells NONE SEEN (NONE SEEN) 05/16/17 22:55 PT 9.5 SECONDS (9.5-11.5) 05/22/17 06:30 INR 0.91 (0.5-1.4) 05/22/17 06:30 PTT (Actin FS) 21.6 SECONDS (26.0-38.0) L 05/15/17 18:56 Sodium 137 mEq/L (136-145) 05/24/17 05:40 Potassium 3.2 mEq/L (3.5-5.1) L 05/24/17 05:40 Chloride 106 mEq/L (98-107) 05/24/17 05:40 Carbon Dioxide 26.8 mEq/L (21.0-31.0) 05/24/17 05:40 Anion Gap 7.4 (7.0-16.0) 05/24/17 05:40 BUN 16 mg/dL (7-25) 05/24/17 05:40 Creatinine 0.5 mg/dL (0.6-1.2) L 05/24/17 05:40 Est GFR ( Amer) TNP 05/24/17 05:40 Est GFR (Non-Af Amer) TNP 05/24/17 05:40 BUN/Creatinine Ratio 32.0 05/24/17 05:40 Glucose 117 mg/dL (70-105) H 05/24/17 05:40 POC Glucose 178 MG/DL (70 - 105) H 05/24/17 11:04 Hemoglobin A1c % 7.5 % (4.0-6.0) H 05/15/17 18:56 Whole Bld Lactic Acid 1.71 mmol/L (0.60-1.99) 05/15/17 18:56 Calcium 8.6 mg/dL (8.6-10.3) 05/24/17 05:40 Magnesium 1.8 mg/dL (1.9-2.7) L 05/24/17 05:40 Iron 29 ug/dL (27-139) 05/20/17 06:07 TIBC 126 ug/dL (250-450) L 05/20/17 06:07 Iron Saturation 23 % (15-55) 05/20/17 06:07 Unsaturated IBC 97 ug/dL (118-369) L 05/20/17 06:07 Ferritin 1243 ng/mL (15-150) H 05/23/17 06:25 Total Bilirubin 0.3 mg/dL (0.3-1.0) 05/21/17 06:15 AST 15 U/L (13-39) 05/21/17 06:15 ALT 19 U/L (7-52) 05/21/17 06:15 Alkaline Phosphatase 53 U/L (34-104) 05/21/17 06:15 Creatine Kinase 20 U/L (30-223) L 05/15/17 18:56 Troponin I 0.02 ng/mL (0.01-0.05) 05/15/17 18:56 B-Natriuretic Peptide 194.0 pg/mL (5.0-100.0) H 05/15/17 18:56 Total Protein 5.0 gm/dL (6.0-8.3) L 05/21/17 06:15 Albumin 2.4 gm/dL (3.7-5.3) L 05/21/17 06:15 Globulin 2.6 gm/dL 05/21/17 06:15 Albumin/Globulin Ratio 0.9 (1.0-1.8) L 05/21/17 06:15 Triglycerides 173 mg/dL (<150) H 05/16/17 05:01 Cholesterol 135 mg/dL (<200) 05/16/17 05:01 LDL Cholesterol Direct 97 mg/dL (75-193) 05/16/17 05:01 HDL Cholesterol 32 mg/dL (23-92) 05/16/17 05:01 Carcinoembryonic Ag 2.7 ng/mL (0.0-4.7) 05/20/17 06:07 Vitamin B12 1097 pg/mL (211-946) H 05/23/17 06:25 Folic Acid >20.0 ng/mL (>3.0) 05/23/17 06:25 TSH 0.88 uIU/ml (0.34-5.60) 05/16/17 05:01 Urine Source MIDSTREAM 05/15/17 19:20 Urine Color YELLOW 08/30/17 19:20 Urine Clarity CLEAR (CLEAR) 05/15/17 19:20 Urine pH 6.0 (4.6 - 8.0) 05/15/17 19:20 Ur Specific [place] 1.020 (1.005-1.030) 05/15/17 19:20 Urine Protein NEGATIVE mg/dL (NEGATIVE) 05/15/17 19:20 Urine Glucose (UA) NEGATIVE mg/dL (NEGATIVE) 05/15/17 19:20 Urine Ketones NEGATIVE mg/dL (NEGATIVE) 05/15/17 19:20 Urine Blood NEGATIVE (NEGATIVE) 05/15/17 19:20 Urine Nitrate NEGATIVE (NEGATIVE) 05/15/17 19:20 Urine Bilirubin NEGATIVE (NEGATIVE) 05/15/17 19:20 Urine Urobilinogen 0.2 E.U./dL (0.2 - 1.0) 05/15/17 19:20 Ur Leukocyte Esterase NEGATIVE (NEGATIVE) 05/15/17 19:20 Urine RBC NONE SEEN /hpf (0-5) 05/15/17 19:20 Urine WBC 0-2 /hpf (0-5) 05/15/17 19:20 Ur Epithelial Cells FEW /lpf (FEW) 05/15/17 19:20 Urine Bacteria NONE SEEN /hpf (NONE SEEN) 05/15/17 19:20 Urine Osmolality 546 mOsmol/kg 05/16/17 22:55 Ur Random Sodium 58 mmol/L 05/16/17 22:55 Urine Creatinine 51.8 mg/dl (Not Estab.) 05/16/17 22:55 Urine Microalbumin 390.3 ug/mL (Not Estab.) 05/16/17 22:55 Microalb/Creat Ratio 753.5 mg/g creat (0.0-30.0) H 05/16/17 22:55 Stool Occult Blood POSITIVE (NEGATIVE) 05/19/17 04:42 Helicobacter pylori Ab NEGATIVE (NEGATIVE) 05/22/17 09:43 Blood Type A POSITIVE 05/20/17 11:45 Antibody Screen NEGATIVE 05/20/17 11:45 Crossmatch See Detail 05/20/17 11:45 - Physical Exam Vitals and I&O: Vital Signs Temp 97.3 F 05/24/17 11:20 Pulse 75 05/24/17 16:26 Resp 18 05/24/17 13:00 BP 142/76 05/24/17 16:26 Pulse Ox 99 05/24/17 11:20 Intake & Output 05/23/17 05/24/17 05/24/17 18:59 06:59 18:59 Intake Total 110.311 4805 537.5 Balance 059.229 9694 537.5 Weight (lbs) 60.781 kg Intake: Intake, IV Amount 426.667 100 537.5 KCL 20mEq/100mL Premix 20 76.667 meq In 100 ml @ 50 mls/ hr IV Q2H [facility] Rx#: [id number] KCL 20mEq/100mL Premix 20 87.5 meq In 100 ml @ 50 mls/ hr IV Q2H [facility] Rx#: [id number] Meropenem 1 gm In Sodium 100 100 200 Chloride 0.9% 100 ml @ 100 mls/hr IV Q8H [facility] Rx# :[id number] Vancomycin HCl 1 gm In 250 250 Sodium Chloride 0.9% 250 ml @ 166.667 mls/hr IV Q24HR@0900 [facility] Rx#: [id number] Oral 0 Tube Feeding 740 Other 200 Other: # Voids 3 # Bowel Movements 3 Stool Characteristics Soft Active Medications: Current Medications Acetaminophen (Tylenol) 650 mg GT Q4HR PRN PRN Reason: Pain or Fever >101 Stop: 07/14/17 21:26 Acetaminophen/Hydrocodone Bitart ([place] 5mg/325mg) 1 tab GT TID PRN PRN Reason: Pain (Mild) Stop: 07/14/17 21:26 Albuterol Sulfate (Albuterol 2.5mg/3ml Neb Ud) 2.5 mg HHN Q4HRT PRN PRN Reason: Shortness of Breath Stop: 07/15/17 15:38 Alprazolam (Xanax) 0.25 mg GT Q12H [facility] Stop: 07/15/17 08:14 Last Admin: 05/24/17 11:09 Dose: Not Given Amlodipine Besylate (Norvasc) 10 mg PO DAILY [facility] Stop: 07/21/17 08:59 Last Admin: 05/24/17 08:50 Dose: 10 mg Benazepril HCl (Lotensin) 10 mg PO BID [facility] Stop: 07/22/17 09:29 Last Admin: 05/24/17 16:26 Dose: Not Given Docusate Sodium (Colace) 200 mg GT BID [facility] Stop: 07/18/17 16:59 Last Admin: 05/24/17 16:26 Dose: Not Given Famotidine (Pepcid) 20 mg GT DAILY [facility] Stop: 07/15/17 08:59 Last Admin: 05/24/17 08:49 Dose: 20 mg Hydralazine HCl (Apresoline) 10 mg GT QID PRN PRN Reason: SBP ABOVE 160 Stop: 07/14/17 21:26 Last Admin: 05/22/17 10:31 Dose: 10 mg Meropenem 1 gm/ Sodium (Chloride) 100 mls @ 100 mls/hr IV Q8H [facility] Stop: 07/19/17 21:29 Last Infusion: 05/24/17 14:32 Dose: Infused Vancomycin HCl 1 gm/ Sodium (Chloride) 250 mls @ 166.667 mls/hr IV Q24HR@0900 [facility] Stop: 07/21/17 10:59 Last Infusion: 05/24/17 10:23 Dose: Infused Insulin Aspart (Novolog) 0 units SUBQ Q6HR [facility] PRN Reason: Protocol Stop: 07/16/17 05:59 Last Admin: 05/24/17 11:21 Dose: 3 unit Insulin Detemir (Levemir Insulin) 10 units SUBQ HS [facility] PRN Reason: Protocol Stop: 07/16/17 20:59 Last Admin: 05/23/17 21:55 Dose: 10 units Lactobacillus Rhamnosus (Culturelle) 1 each PO DAILY [facility] Stop: 07/21/17 08:59 Last Admin: 05/24/17 08:51 Dose: Not Given Loperamide HCl (Imodium) 2 mg GT Q6H PRN PRN Reason: Diarrhea Stop: 07/14/17 21:26 Magnesium Hydroxide (Milk Of Magnesia) 30 ml GT HS PRN PRN Reason: Constipation Stop: 07/18/17 09:39 Metoclopramide HCl (Reglan) 5 mg IVP Q4HR PRN PRN Reason: Vomiting Stop: 07/20/17 21:14 Last Admin: 05/21/17 21:40 Dose: 5 mg Miscellaneous (Probiotic Screen) 1 ea MC PRN PRN PRN Reason: PROTOCOL Stop: 07/20/17 17:25 Miscellaneous (Vancomycin Iv Per Pharmacy) 1 ea MC PRN PRN PRN Reason: DOSE VANCOMYCIN Stop: 07/23/17 10:50 Ondansetron HCl (Zofran Odt) 4 mg SL Q6HR PRN PRN Reason: Nausea Stop: 07/14/17 21:26 Last Admin: 05/21/17 10:12 Dose: 4 mg Ondansetron HCl (Zofran) 4 mg IV PRN PRN PRN Reason: Nausea / Vomiting Stop: 07/21/17 09:25 Potassium Chloride (Klor-Con) 20 meq PO DAILY [facility] Stop: 07/24/17 08:59 General: Cooperative, No acute distress, Other (Sleeping confortable) HEENT: Atraumatic Neck: Supple, +2 carotid pulse wo bruit, Other (Tracheostomy in place) Cardiovascular: Regular rate, Normal S1, Normal S2 Lungs: Other (few rhonchi) Abdomen: Bowel sounds, Soft, Other (PEG in place) Extremities: Other (No edema), no Edema Neurological: Sensation intact Skin: Other (Warm and dry), no Rash Psych/Mental Status: Other (Sleeping but arousable) Assessment/Plan - Assessment Assessment: * 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 Nutritional Asmnt/Malnutr-PDOC - Dietary Evaluation Malnutrition Findings (Please click <Entered> for more info): Nutritional Asmnt/Malnutrition Start: 05/16/17 13: 09 Text: Status: Complete Freq: Document 05/16/17 13:09 LINH (Rec: 05/16/17 13:17 [email or web address] [email or web address]) Nutritional Asmnt/Malnutrition Patient General Information Nutritional Screening High Risk Screening Diagnosis Azotemia, dehydration, Pertinent Medical Hx/Surgical Hx HTN, asthma/COPD, CVA, DM, recent respiratory failure/PNA requiring intubation and evetually trach and PEG Subjective Information 76 year old female. Lab trigger glucose 489H. Pt made eye contact, mumbled, trach, unable to interview. No severe muscle/fat wasting noted. Discussed with SPIKE Meade who discuseed with MD Brown regarding formula switch to Diabetisource due to glucoer 489H and hx DM. RN stated pt has been toelrating tube feeding well, no residuals. Current Diet Order/ Nutrition Support Isosource at 40ml/hr x 20hrs Pertinent Medications D5w, Colace, Novolog, Zofran Pertinent Labs 05/15: A1c 7.5H 05/16: potassium 3.4L, glucose 489H, BUN 52H, creaitnine 0.9 WNL Nutritional Hx/Data Height 1.57 m Height (Calculated Centimeters) 157.5 Current Weight (lbs) 59.194 kg Weight (Calculated Kilograms) 59.2 Weight (Calculated Grams) 76895.8 [place] Body Weight 110 Weight Status Approriate GI Symptoms Usual diet at home Chart: Diabetisource at 60ml/ hr x 18hrs, providing 1296kcal . Skin Integrity/Comment: Fer 14. Bilateral upper medial thigh redness. Estimated Nutritional Goals BEE in Kcals: Using Current wt Calories/Kcals/Kg CBW 130.5lb/59.3kg Kcals Calculated 1364-1660kcal (23-28kcal/kg) Protein: Using Current wt Protein Calculated 59g (1g/kg) Fluid: ml 1483-1779ml (1ml/kcal) Nutritional Problem 1. Problem Problem Altered nutrition related laboratory values related to Etiology DM aeb Signs/Symptoms: glucose 489 this AM, hx DM Intervention/Recommendation Comments 1. Recommend Diabetisource at 60ml/hr x 20hrs, providing 1200ml total volume, 1440kcal, 72g protein. Expected Outcomes/Goals Expected Outcomes/Goals 1. Pt to meet 100% of estimated nutritional needs on tube feeding with tolerance.
[2017-05-24] MEDS: Insulin Detemir 100 units/mL 10mL Vial SUBQ SCH (21:59)
[2017-05-25] MEDS: Meropenem 1 gm in NS 0.9% 100 ML IV SCH ×2 (05:18→21:24)
[2017-05-25] MEDS: INSULIN ASPART, RECOMBINANT 100 UNITS/ML SUBQ SCH ×4 (05:55→18:11)
[2017-05-25 06:02] LABS: HEMATOCRIT 26.7 % (35.0-45.0); HEMOGLOBIN 9.2 gm/dL (11.7-16.1); MEAN CELL VOLUME 89.3 fl (81-100); MEAN CORPUSCULAR HEMOGLOBIN 30.7 pg (27.0-31.0); MEAN CORPUSCULAR HGB CONC 34.4 pg (28.0-36.0); MEAN PLATELET VOLUME 8.5 fl; PLATELET COUNT 125 Th/cmm (150-400); RED CELL DISTRIBUTION WIDTH 15.8 % (11.5-20.0)
[2017-05-25 06:13] LABS: ANION GAP 5.9 (7.0-16.0); BUN - UREA NITROGEN 17 mg/dL (7-25); BUN/CREATININE RATIO 28.3; CALCIUM SERUM 8.6 mg/dL (8.6-10.3); CARBON DIOXIDE 26.3 mEq/L (21.0-31.0); CHLORIDE 108 mEq/L (98-107); CREATININE - SERUM 0.6 mg/dL (0.6-1.2); GLUCOSE 136 mg/dL (70-105); POTASSIUM SERUM 3.2 mEq/L (3.5-5.1); SODIUM SERUM 137 mEq/L (136-145)
[2017-05-25 06:33] LABS: WHITE BLOOD COUNT 2.5 Th/cmm (4.8-10.8)
[2017-05-25] MEDS ORDERED: Potassium Chloride 20 mEq ER Tab PO SCH (09:00)
[2017-05-25 09:03] LABS: BAND NEUTROPHILE 2 % (0-10); NEUTROPHILS 42 % (40-80); PLATELET ESTIMATE DECREASED PLATELETS (NORMAL); PLATELET MORPHOLOGY PLATELET CLUMPS SEEN (NORMAL); TOTAL CELLS COUNTED 100
--- NOTE | 2017-05-25 09:13 | Diagnostic Imaging Report ---
Exam: HIDA scan HISTORY: Cholelithiasis. Utilizing 4.8 mCi technetium 99m Choletec examination of liver and biliary tree was obtained. The study demonstrates normal uptake of radiopharmaceutical throughout the liver parenchyma. The gallbladder and common bile duct are normal. Normal excretion into the small bowel appreciated. IMPRESSION: 1. Normal HIDA scan.
[2017-05-25] MEDS: Docusate Sodium 100 mg/10 mL UD GT SCH ×2 (10:23→18:18)
[2017-05-25] MEDS: Lactobacillus Rhamnosus 10 Billion CFU Capsule PO SCH (10:24)
--- NOTE | 2017-05-25 12:37 | General Progress Note ---
Subjective - Review of Systems Service Date: 05/25/17 Events since last encounter: no bleeding Objective - Results Result Diagrams: 05/25/17 05:40 05/25/17 05:40 Recent Labs: Laboratory Last Values WBC 2.5 Th/cmm (4.8-10.8) L 05/25/17 05:40 RBC 3.00 Mil/cmm (3.80-5.20) L 05/25/17 05:40 Hgb 9.2 gm/dL (11.7-16.1) L 05/25/17 05:40 Hct 26.7 % (35.0-45.0) L 05/25/17 05:40 MCV 89.3 fl (81-100) 05/25/17 05:40 MCH 30.7 pg (27.0-31.0) 05/25/17 05:40 MCHC Differential 34.4 pg (28.0-36.0) 05/25/17 05:40 RDW 15.8 % (11.5-20.0) 05/25/17 05:40 Plt Count 125 Th/cmm (150-400) L 05/25/17 05:40 MPV 8.5 fl 05/25/17 05:40 Band Neutrophils % 2 % (0-10) 05/25/17 05:40 Neutrophils (Manual) 42 % (40-80) 05/25/17 05:40 Lymphocytes 50 % (20-50) 05/25/17 05:40 Monocytes 6 % (2-10) 05/25/17 05:40 Eosinophils 3 % (0-5) 05/24/17 05:30 Metamyelocytes % (0-0) 05/24/17 05:30 Nucleated RBCs 1.0 % (0-0) H 05/20/17 06:07 Atypical Lymphocytes 1 % 05/20/17 06:07 Platelet Estimate DECREASED PLATELETS (NORMAL) 05/25/17 05:40 Platelet Morphology PLATELET CLUMPS SEEN (NORMAL) 05/25/17 05:40 Polychromasia 1+ 05/18/17 06:35 Anisocytosis 1+ 05/20/17 06:07 RBC Morph Micro Appear NORMAL (NORMAL) 05/25/17 05:40 Total Retics Counted 0.4 % (0.5-1.5) L 05/23/17 06:25 Absolute Retic 13.6 Th/cmm 05/23/17 06:25 Corrected Retic Count 0.3 % (0.5-1.5) L 05/23/17 06:25 Eos Smear Source URINE 05/16/17 22:55 Eos Smear Total Cells NONE SEEN (NONE SEEN) 05/16/17 22:55 PT 9.5 SECONDS (9.5-11.5) 05/22/17 06:30 INR 0.91 (0.5-1.4) 05/22/17 06:30 PTT (Actin FS) 21.6 SECONDS (26.0-38.0) L 05/15/17 18:56 Sodium 137 mEq/L (136-145) 05/25/17 05:40 Potassium 3.2 mEq/L (3.5-5.1) L 05/25/17 05:40 Chloride 108 mEq/L (98-107) H 05/25/17 05:40 Carbon Dioxide 26.3 mEq/L (21.0-31.0) 05/25/17 05:40 Anion Gap 5.9 (7.0-16.0) L 05/25/17 05:40 BUN 17 mg/dL (7-25) 05/25/17 05:40 Creatinine 0.6 mg/dL (0.6-1.2) 05/25/17 05:40 Est GFR ( Amer) TNP 05/25/17 05:40 Est GFR (Non-Af Amer) TNP 05/25/17 05:40 BUN/Creatinine Ratio 28.3 05/25/17 05:40 Glucose 136 mg/dL (70-105) H 05/25/17 05:40 POC Glucose 131 MG/DL (70 - 105) H 05/25/17 05:53 Hemoglobin A1c % 7.5 % (4.0-6.0) H 05/15/17 18:56 Whole Bld Lactic Acid 1.71 mmol/L (0.60-1.99) 05/15/17 18:56 Calcium 8.6 mg/dL (8.6-10.3) 05/25/17 05:40 Magnesium 2.0 mg/dL (1.9-2.7) 05/25/17 05:40 Iron 29 ug/dL (27-139) 05/20/17 06:07 TIBC 126 ug/dL (250-450) L 05/20/17 06:07 Iron Saturation 23 % (15-55) 05/20/17 06:07 Unsaturated IBC 97 ug/dL (118-369) L 05/20/17 06:07 Ferritin 1243 ng/mL (15-150) H 05/23/17 06:25 Total Bilirubin 0.3 mg/dL (0.3-1.0) 05/21/17 06:15 AST 15 U/L (13-39) 05/21/17 06:15 ALT 19 U/L (7-52) 05/21/17 06:15 Alkaline Phosphatase 53 U/L (34-104) 05/21/17 06:15 Creatine Kinase 20 U/L (30-223) L 05/15/17 18:56 Troponin I 0.02 ng/mL (0.01-0.05) 05/15/17 18:56 B-Natriuretic Peptide 194.0 pg/mL (5.0-100.0) H 05/15/17 18:56 Total Protein 5.0 gm/dL (6.0-8.3) L 05/21/17 06:15 Albumin 2.4 gm/dL (3.7-5.3) L 05/21/17 06:15 Globulin 2.6 gm/dL 05/21/17 06:15 Albumin/Globulin Ratio 0.9 (1.0-1.8) L 05/21/17 06:15 Triglycerides 173 mg/dL (<150) H 05/16/17 05:01 Cholesterol 135 mg/dL (<200) 05/16/17 05:01 LDL Cholesterol Direct 97 mg/dL (75-193) 05/16/17 05:01 HDL Cholesterol 32 mg/dL (23-92) 05/16/17 05:01 Carcinoembryonic Ag 2.7 ng/mL (0.0-4.7) 05/20/17 06:07 Vitamin B12 1097 pg/mL (211-946) H 05/23/17 06:25 Folic Acid >20.0 ng/mL (>3.0) 05/23/17 06:25 TSH 0.88 uIU/ml (0.34-5.60) 05/16/17 05:01 Urine Source MIDSTREAM 05/15/17 19:20 Urine Color YELLOW 05/15/17 19:20 Urine Clarity CLEAR (CLEAR) 05/15/17 19:20 Urine pH 6.0 (4.6 - 8.0) 05/15/17 19:20 Ur Specific [place] 1.020 (1.005-1.030) 05/15/17 19:20 Urine Protein NEGATIVE mg/dL (NEGATIVE) 05/15/17 19:20 Urine Glucose (UA) NEGATIVE mg/dL (NEGATIVE) 05/15/17 19:20 Urine Ketones NEGATIVE mg/dL (NEGATIVE) 05/15/17 19:20 Urine Blood NEGATIVE (NEGATIVE) 05/15/17 19:20 Urine Nitrate NEGATIVE (NEGATIVE) 05/15/17 19:20 Urine Bilirubin NEGATIVE (NEGATIVE) 05/15/17 19:20 Urine Urobilinogen 0.2 E.U./dL (0.2 - 1.0) 05/15/17 19:20 Ur Leukocyte Esterase NEGATIVE (NEGATIVE) 05/15/17 19:20 Urine RBC NONE SEEN /hpf (0-5) 05/15/17 19:20 Urine WBC 0-2 /hpf (0-5) 05/15/17 19:20 Ur Epithelial Cells FEW /lpf (FEW) 05/15/17 19:20 Urine Bacteria NONE SEEN /hpf (NONE SEEN) 05/15/17 19:20 Urine Osmolality 546 mOsmol/kg 05/16/17 22:55 Ur Random Sodium 58 mmol/L 05/16/17 22:55 Urine Creatinine 51.8 mg/dl (Not Estab.) 05/16/17 22:55 Urine Microalbumin 390.3 ug/mL (Not Estab.) 05/16/17 22:55 Microalb/Creat Ratio 753.5 mg/g creat (0.0-30.0) H 05/16/17 22:55 Stool Occult Blood POSITIVE (NEGATIVE) 05/19/17 04:42 Vancomycin Trough 10.5 ug/mL (10-20) 05/25/17 08:00 Helicobacter pylori Ab NEGATIVE (NEGATIVE) 05/22/17 09:43 Blood Type A POSITIVE 05/20/17 11:45 Antibody Screen NEGATIVE 05/20/17 11:45 Crossmatch See Detail 05/20/17 11:45 - Physical Exam Vitals and I&O: Vital Signs Temp 96.8 F 05/25/17 04:00 Pulse 72 05/25/17 10:25 Resp 16 05/25/17 07:00 BP 114/60 05/25/17 10:25 Pulse Ox 100 05/25/17 07:00 Intake & Output 05/24/17 05/25/17 05/25/17 18:59 06:59 18:59 Intake Total 537.5 108.333 840 Balance 537.5 108.333 840 Weight (lbs) 60.781 kg 63.004 kg Intake: Intake, IV Amount 537.5 8.333 KCL 20mEq/100mL Premix 20 87.5 meq In 100 ml @ 50 mls/ hr IV Q2H [facility] Rx#: [id number] Meropenem 1 gm In Sodium 200 8.333 Chloride 0.9% 100 ml @ 100 mls/hr IV Q8H [facility] Rx# :[id number] Vancomycin HCl 1 gm In 250 Sodium Chloride 0.9% 250 ml @ 166.667 mls/hr IV Q24HR@0900 [facility] Rx#: [id number] Oral 0 0 Tube Feeding 540 Other 100 300 Other: # Voids 1 3 # Bowel Movements 1 3 Stool Characteristics Soft Soft Active Medications: Current Medications Acetaminophen (Tylenol) 650 mg GT Q4HR PRN PRN Reason: Pain or Fever >101 Stop: 07/14/17 21:26 Acetaminophen/Hydrocodone Bitart ([place] 5mg/325mg) 1 tab GT TID PRN PRN Reason: Pain (Mild) Stop: 07/14/17 21:26 Albuterol Sulfate (Albuterol 2.5mg/3ml Neb Ud) 2.5 mg HHN Q4HRT PRN PRN Reason: Shortness of Breath Stop: 07/15/17 15:38 Alprazolam (Xanax) 0.25 mg GT Q12H [facility] Stop: 07/15/17 08:14 Last Admin: 05/24/17 23:43 Dose: 0.25 mg Amlodipine Besylate (Norvasc) 10 mg PO DAILY [facility] Stop: 07/21/17 08:59 Last Admin: 05/25/17 10:25 Dose: 10 mg Benazepril HCl (Lotensin) 10 mg PO BID [facility] Stop: 07/22/17 09:29 Last Admin: 05/25/17 10:25 Dose: 10 mg Docusate Sodium (Colace) 200 mg GT BID [facility] Stop: 07/18/17 16:59 Last Admin: 05/25/17 10:23 Dose: 200 mg Famotidine (Pepcid) 20 mg GT DAILY [facility] Stop: 07/15/17 08:59 Last Admin: 05/25/17 10:26 Dose: 20 mg Hydralazine HCl (Apresoline) 10 mg GT QID PRN PRN Reason: SBP ABOVE 160 Stop: 07/14/17 21:26 Last Admin: 05/25/17 10:24 Dose: 10 mg Meropenem 1 gm/ Sodium (Chloride) 100 mls @ 100 mls/hr IV Q8H [facility] Stop: 07/19/17 21:29 Last Admin: 05/25/17 05:18 Dose: 100 mls/hr Vancomycin HCl 750 mg/ Sodium (Chloride) 250 mls @ 250 mls/hr IV Q12HR [facility] Stop: 07/24/17 08:59 Last Admin: 05/25/17 10:22 Dose: 250 mls/hr Insulin Aspart (Novolog) 0 units SUBQ Q6HR [facility] PRN Reason: Protocol Stop: 07/16/17 05:59 Last Admin: 05/25/17 05:55 Dose: Not Given Insulin Detemir (Levemir Insulin) 10 units SUBQ HS [facility] PRN Reason: Protocol Stop: 07/16/17 20:59 Last Admin: 05/24/17 21:59 Dose: 10 units Lactobacillus Rhamnosus (Culturelle) 1 each PO DAILY [facility] Stop: 07/21/17 08:59 Last Admin: 05/25/17 10:24 Dose: 1 each Loperamide HCl (Imodium) 2 mg GT Q6H PRN PRN Reason: Diarrhea Stop: 07/14/17 21:26 Magnesium Hydroxide (Milk Of Magnesia) 30 ml GT HS PRN PRN Reason: Constipation Stop: 07/18/17 09:39 Metoclopramide HCl (Reglan) 5 mg IVP Q4HR PRN PRN Reason: Vomiting Stop: 07/20/17 21:14 Last Admin: 05/21/17 21:40 Dose: 5 mg Miscellaneous (Probiotic Screen) 1 ea MC PRN PRN PRN Reason: PROTOCOL Stop: 07/20/17 17:25 Miscellaneous (Vancomycin Iv Per Pharmacy) 1 ea MC PRN PRN PRN Reason: DOSE VANCOMYCIN Stop: 07/23/17 10:50 Ondansetron HCl (Zofran Odt) 4 mg SL Q6HR PRN PRN Reason: Nausea Stop: 07/14/17 21:26 Last Admin: 05/21/17 10:12 Dose: 4 mg Ondansetron HCl (Zofran) 4 mg IV PRN PRN PRN Reason: Nausea / Vomiting Stop: 07/21/17 09:25 Potassium Chloride (Klor-Con) 20 meq PO DAILY SAMI Stop: 07/24/17 08:59 Last Admin: 05/25/17 10:25 Dose: 20 meq General: Cooperative, No acute distress, Other (Sleeping confortable) HEENT: Atraumatic Neck: Supple, +2 carotid pulse wo bruit, Other (Tracheostomy in place) Cardiovascular: Regular rate, Normal S1, Normal S2 Lungs: Other (few rhonchi) Abdomen: Bowel sounds, Soft, Other (PEG in place) Extremities: Other (No edema), no Edema Neurological: Sensation intact Skin: Other (Warm and dry), no Rash Psych/Mental Status: Other (Sleeping but arousable) Assessment/Plan - Assessment Assessment: * 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 cbc stable, no transfusion needed Nutritional Asmnt/Malnutr-PDOC - Dietary Evaluation Malnutrition Findings (Please click <Entered> for more info): Nutritional Asmnt/Malnutrition Start: 05/16/17 13: 09 Text: Status: Complete Freq: Document 05/16/17 13:09 UN (Rec: 05/16/17 13:17 UN [email or web address]) Nutritional Asmnt/Malnutrition Patient General Information Nutritional Screening High Risk Screening Diagnosis Azotemia, dehydration, Pertinent Medical Hx/Surgical Hx HTN, asthma/COPD, CVA, DM, recent respiratory failure/PNA requiring intubation and evetually trach and PEG Subjective Information 76 year old female. Lab trigger glucose 489H. Pt made eye contact, mumbled, trach, unable to interview. No severe muscle/fat wasting noted. Discussed with SPIKE Meade who discuseed with MD Brown regarding formula switch to Diabetisource due to glucoer 489H and hx DM. RN stated pt has been toelrating tube feeding well, no residuals. Current Diet Order/ Nutrition Support Isosource at 40ml/hr x 20hrs Pertinent Medications D5w, Colace, Novolog, Zofran Pertinent Labs 05/15: A1c 7.5H 05/16: potassium 3.4L, glucose 489H, BUN 52H, creaitnine 0.9 WNL Nutritional Hx/Data Height 1.57 m Height (Calculated Centimeters) 157.5 Current Weight (lbs) 59.194 kg Weight (Calculated Kilograms) 59.2 Weight (Calculated Grams) 28146.8 [place] Body Weight 110 Weight Status Approriate GI Symptoms Usual diet at home Chart: Diabetisource at 60ml/ hr x 18hrs, providing 1296kcal . Skin Integrity/Comment: Fer 14. Bilateral upper medial thigh redness. Estimated Nutritional Goals BEE in Kcals: Using Current wt Calories/Kcals/Kg CBW 130.5lb/59.3kg Kcals Calculated 1364-1660kcal (23-28kcal/kg) Protein: Using Current wt Protein Calculated 59g (1g/kg) Fluid: ml 1483-1779ml (1ml/kcal) Nutritional Problem 1. Problem Problem Altered nutrition related laboratory values related to Etiology DM aeb Signs/Symptoms: glucose 489 this AM, hx DM Intervention/Recommendation Comments 1. Recommend Diabetisource at 60ml/hr x 20hrs, providing 1200ml total volume, 1440kcal, 72g protein. Expected Outcomes/Goals Expected Outcomes/Goals 1. Pt to meet 100% of estimated nutritional needs on tube feeding with tolerance.
--- NOTE | 2017-05-25 15:38 | General Progress Note ---
Subjective - Review of Systems Service Date: 05/25/17 Subjective: sleeping, comfortable Objective - Results Result Diagrams: 05/25/17 05:40 05/25/17 05:40 Recent Labs: Laboratory Last Values WBC 2.5 Th/cmm (4.8-10.8) L 05/25/17 05:40 RBC 3.00 Mil/cmm (3.80-5.20) L 05/25/17 05:40 Hgb 9.2 gm/dL (11.7-16.1) L 05/25/17 05:40 Hct 26.7 % (35.0-45.0) L 05/25/17 05:40 MCV 89.3 fl (81-100) 05/25/17 05:40 MCH 30.7 pg (27.0-31.0) 05/25/17 05:40 MCHC Differential 34.4 pg (28.0-36.0) 05/25/17 05:40 RDW 15.8 % (11.5-20.0) 05/25/17 05:40 Plt Count 125 Th/cmm (150-400) L 05/25/17 05:40 MPV 8.5 fl 05/25/17 05:40 Band Neutrophils % 2 % (0-10) 05/25/17 05:40 Neutrophils (Manual) 42 % (40-80) 05/25/17 05:40 Lymphocytes 50 % (20-50) 05/25/17 05:40 Monocytes 6 % (2-10) 05/25/17 05:40 Eosinophils 3 % (0-5) 05/24/17 05:30 Metamyelocytes % (0-0) 05/24/17 05:30 Nucleated RBCs 1.0 % (0-0) H 05/20/17 06:07 Atypical Lymphocytes 1 % 05/20/17 06:07 Platelet Estimate DECREASED PLATELETS (NORMAL) 05/25/17 05:40 Platelet Morphology PLATELET CLUMPS SEEN (NORMAL) 05/25/17 05:40 Polychromasia 1+ 05/18/17 06:35 Anisocytosis 1+ 05/20/17 06:07 RBC Morph Micro Appear NORMAL (NORMAL) 05/25/17 05:40 Total Retics Counted 0.4 % (0.5-1.5) L 05/23/17 06:25 Absolute Retic 13.6 Th/cmm 05/23/17 06:25 Corrected Retic Count 0.3 % (0.5-1.5) L 05/23/17 06:25 Eos Smear Source URINE 05/16/17 22:55 Eos Smear Total Cells NONE SEEN (NONE SEEN) 05/16/17 22:55 PT 9.5 SECONDS (9.5-11.5) 05/22/17 06:30 INR 0.91 (0.5-1.4) 05/22/17 06:30 PTT (Actin FS) 21.6 SECONDS (26.0-38.0) L 05/15/17 18:56 Sodium 137 mEq/L (136-145) 05/25/17 05:40 Potassium 3.2 mEq/L (3.5-5.1) L 05/25/17 05:40 Chloride 108 mEq/L (98-107) H 05/25/17 05:40 Carbon Dioxide 26.3 mEq/L (21.0-31.0) 05/25/17 05:40 Anion Gap 5.9 (7.0-16.0) L 05/25/17 05:40 BUN 17 mg/dL (7-25) 05/25/17 05:40 Creatinine 0.6 mg/dL (0.6-1.2) 05/25/17 05:40 Est GFR ( Amer) TNP 05/25/17 05:40 Est GFR (Non-Af Amer) TNP 05/25/17 05:40 BUN/Creatinine Ratio 28.3 05/25/17 05:40 Glucose 136 mg/dL (70-105) H 05/25/17 05:40 POC Glucose 196 MG/DL (70 - 105) H 05/25/17 13:00 Hemoglobin A1c % 7.5 % (4.0-6.0) H 05/15/17 18:56 Whole Bld Lactic Acid 1.71 mmol/L (0.60-1.99) 05/15/17 18:56 Calcium 8.6 mg/dL (8.6-10.3) 05/25/17 05:40 Magnesium 2.0 mg/dL (1.9-2.7) 05/25/17 05:40 Iron 29 ug/dL (27-139) 05/20/17 06:07 TIBC 126 ug/dL (250-450) L 05/20/17 06:07 Iron Saturation 23 % (15-55) 05/20/17 06:07 Unsaturated IBC 97 ug/dL (118-369) L 05/20/17 06:07 Ferritin 1243 ng/mL (15-150) H 05/23/17 06:25 Total Bilirubin 0.3 mg/dL (0.3-1.0) 05/21/17 06:15 AST 15 U/L (13-39) 05/21/17 06:15 ALT 19 U/L (7-52) 05/21/17 06:15 Alkaline Phosphatase 53 U/L (34-104) 05/21/17 06:15 Creatine Kinase 20 U/L (30-223) L 05/15/17 18:56 Troponin I 0.02 ng/mL (0.01-0.05) 05/15/17 18:56 B-Natriuretic Peptide 194.0 pg/mL (5.0-100.0) H 05/15/17 18:56 Total Protein 5.0 gm/dL (6.0-8.3) L 05/21/17 06:15 Albumin 2.4 gm/dL (3.7-5.3) L 05/21/17 06:15 Globulin 2.6 gm/dL 05/21/17 06:15 Albumin/Globulin Ratio 0.9 (1.0-1.8) L 05/21/17 06:15 Triglycerides 173 mg/dL (<150) H 05/16/17 05:01 Cholesterol 135 mg/dL (<200) 05/16/17 05:01 LDL Cholesterol Direct 97 mg/dL (75-193) 05/16/17 05:01 HDL Cholesterol 32 mg/dL (23-92) 05/16/17 05:01 Carcinoembryonic Ag 2.7 ng/mL (0.0-4.7) 05/20/17 06:07 Vitamin B12 1097 pg/mL (211-946) H 05/23/17 06:25 Folic Acid >20.0 ng/mL (>3.0) 05/23/17 06:25 TSH 0.88 uIU/ml (0.34-5.60) 05/16/17 05:01 Urine Source MIDSTREAM 05/15/17 19:20 Urine Color YELLOW 05/15/17 19:20 Urine Clarity CLEAR (CLEAR) 05/15/17 19:20 Urine pH 6.0 (4.6 - 8.0) 05/15/17 19:20 Ur Specific [place] 1.020 (1.005-1.030) 05/15/17 19:20 Urine Protein NEGATIVE mg/dL (NEGATIVE) 05/15/17 19:20 Urine Glucose (UA) NEGATIVE mg/dL (NEGATIVE) 05/15/17 19:20 Urine Ketones NEGATIVE mg/dL (NEGATIVE) 05/15/17 19:20 Urine Blood NEGATIVE (NEGATIVE) 05/15/17 19:20 Urine Nitrate NEGATIVE (NEGATIVE) 05/15/17 19:20 Urine Bilirubin NEGATIVE (NEGATIVE) 05/15/17 19:20 Urine Urobilinogen 0.2 E.U./dL (0.2 - 1.0) 05/15/17 19:20 Ur Leukocyte Esterase NEGATIVE (NEGATIVE) 05/15/17 19:20 Urine RBC NONE SEEN /hpf (0-5) 05/15/17 19:20 Urine WBC 0-2 /hpf (0-5) 05/15/17 19:20 Ur Epithelial Cells FEW /lpf (FEW) 05/15/17 19:20 Urine Bacteria NONE SEEN /hpf (NONE SEEN) 05/15/17 19:20 Urine Osmolality 546 mOsmol/kg 05/16/17 22:55 Ur Random Sodium 58 mmol/L 05/16/17 22:55 Urine Creatinine 51.8 mg/dl (Not Estab.) 05/16/17 22:55 Urine Microalbumin 390.3 ug/mL (Not Estab.) 05/16/17 22:55 Microalb/Creat Ratio 753.5 mg/g creat (0.0-30.0) H 05/16/17 22:55 Stool Occult Blood POSITIVE (NEGATIVE) 05/19/17 04:42 Vancomycin Trough 10.5 ug/mL (10-20) 05/25/17 08:00 Helicobacter pylori Ab NEGATIVE (NEGATIVE) 05/22/17 09:43 Blood Type A POSITIVE 05/20/17 11:45 Antibody Screen NEGATIVE 05/20/17 11:45 Crossmatch See Detail 05/20/17 11:45 - Physical Exam Vitals and I&O: Vital Signs Temp 96.8 F 05/25/17 04:00 Pulse 72 05/25/17 10:25 Resp 16 05/25/17 07:00 BP 114/60 05/25/17 10:25 Pulse Ox 100 05/25/17 07:00 Intake & Output 05/24/17 05/25/17 05/25/17 18:59 06:59 18:59 Intake Total 537.5 108.333 840 Balance 537.5 108.333 840 Weight (lbs) 60.781 kg 63.004 kg Intake: Intake, IV Amount 537.5 8.333 KCL 20mEq/100mL Premix 20 87.5 meq In 100 ml @ 50 mls/ hr IV Q2H [facility] Rx#: [id number] Meropenem 1 gm In Sodium 200 8.333 Chloride 0.9% 100 ml @ 100 mls/hr IV Q8H [facility] Rx# :[id number] Vancomycin HCl 1 gm In 250 Sodium Chloride 0.9% 250 ml @ 166.667 mls/hr IV Q24HR@0900 [facility] Rx#: [id number] Oral 0 0 Tube Feeding 540 Other 100 300 Other: # Voids 1 3 # Bowel Movements 1 3 Stool Characteristics Soft Soft Active Medications: Current Medications Acetaminophen (Tylenol) 650 mg GT Q4HR PRN PRN Reason: Pain or Fever >101 Stop: 07/14/17 21:26 Acetaminophen/Hydrocodone Bitart ([place] 5mg/325mg) 1 tab GT TID PRN PRN Reason: Pain (Mild) Stop: 07/14/17 21:26 Albuterol Sulfate (Albuterol 2.5mg/3ml Neb Ud) 2.5 mg HHN Q4HRT PRN PRN Reason: Shortness of Breath Stop: 07/15/17 15:38 Alprazolam (Xanax) 0.25 mg GT Q12H [facility] Stop: 07/15/17 08:14 Last Admin: 05/25/17 13:29 Dose: 0.25 mg Amlodipine Besylate (Norvasc) 10 mg PO DAILY [facility] Stop: 07/21/17 08:59 Last Admin: 05/25/17 10:25 Dose: 10 mg Benazepril HCl (Lotensin) 10 mg PO BID [facility] Stop: 07/22/17 09:29 Last Admin: 05/25/17 10:25 Dose: 10 mg Docusate Sodium (Colace) 200 mg GT BID [facility] Stop: 07/18/17 16:59 Last Admin: 05/25/17 10:23 Dose: 200 mg Famotidine (Pepcid) 20 mg GT DAILY [facility] Stop: 07/15/17 08:59 Last Admin: 05/25/17 10:26 Dose: 20 mg Hydralazine HCl (Apresoline) 10 mg GT QID PRN PRN Reason: SBP ABOVE 160 Stop: 07/14/17 21:26 Last Admin: 05/25/17 10:24 Dose: 10 mg Meropenem 1 gm/ Sodium (Chloride) 100 mls @ 100 mls/hr IV Q8H [facility] Stop: 07/19/17 21:29 Last Admin: 05/25/17 05:18 Dose: 100 mls/hr Vancomycin HCl 750 mg/ Sodium (Chloride) 250 mls @ 250 mls/hr IV Q12HR [facility] Stop: 07/24/17 08:59 Last Admin: 05/25/17 10:22 Dose: 250 mls/hr Insulin Aspart (Novolog) 0 units SUBQ Q6HR [facility] PRN Reason: Protocol Stop: 07/16/17 05:59 Last Admin: 05/25/17 12:56 Dose: 3 unit Insulin Detemir (Levemir Insulin) 10 units SUBQ HS [facility] PRN Reason: Protocol Stop: 07/16/17 20:59 Last Admin: 05/24/17 21:59 Dose: 10 units Lactobacillus Rhamnosus (Culturelle) 1 each PO DAILY [facility] Stop: 07/21/17 08:59 Last Admin: 05/25/17 10:24 Dose: 1 each Loperamide HCl (Imodium) 2 mg GT Q6H PRN PRN Reason: Diarrhea Stop: 07/14/17 21:26 Magnesium Hydroxide (Milk Of Magnesia) 30 ml GT HS PRN PRN Reason: Constipation Stop: 07/18/17 09:39 Metoclopramide HCl (Reglan) 5 mg IVP Q4HR PRN PRN Reason: Vomiting Stop: 07/20/17 21:14 Last Admin: 05/21/17 21:40 Dose: 5 mg Miscellaneous (Probiotic Screen) 1 ea MC PRN PRN PRN Reason: PROTOCOL Stop: 07/20/17 17:25 Miscellaneous (Vancomycin Iv Per Pharmacy) 1 ea MC PRN PRN PRN Reason: DOSE VANCOMYCIN Stop: 07/23/17 10:50 Ondansetron HCl (Zofran Odt) 4 mg SL Q6HR PRN PRN Reason: Nausea Stop: 07/14/17 21:26 Last Admin: 05/21/17 10:12 Dose: 4 mg Ondansetron HCl (Zofran) 4 mg IV PRN PRN PRN Reason: Nausea / Vomiting Stop: 07/21/17 09:25 Potassium Chloride (Klor-Con) 20 meq PO BID [facility] Stop: 07/24/17 16:59 General: Cooperative, No acute distress, Other (Sleeping confortable) HEENT: Atraumatic Neck: Supple, +2 carotid pulse wo bruit, Other (Tracheostomy in place) Cardiovascular: Regular rate, Normal S1, Normal S2 Lungs: Other (few rhonchi) Abdomen: Bowel sounds, Soft, Other (PEG in place) Extremities: Other (No edema), no Edema Neurological: Sensation intact Skin: Other (Warm and dry), no Rash Psych/Mental Status: Other (Sleeping but arousable) Assessment/Plan - Assessment Assessment: Hypernatremia secondary to dehydration Hypokalemia without hyperaldosteronism Prerenal azotemia Pancytopenia possible MDS Status post respiratory failure on PMV Type II DM with CKD Essential hypertension CKD Bronchial asthma/COPD Status post CVA Dyslipidemia Rheumatoid arthritis Moderate malnutrition - Plan Plan: Lab - Result Diagrams 05/17/17 05:19 05/17/17 05:19 Current Medications Acetaminophen (Tylenol) 650 mg PO Q4HR PRN PRN Reason: Pain or Fever >101 Stop: 07/14/17 21:26 Last Admin: 05/16/17 04:34 Dose: 650 mg Acetaminophen/Hydrocodone Bitart ([place] 5mg/325mg) 1 tab PO TID PRN PRN Reason: Pain (Mild) Stop: 07/14/17 21:26 Albuterol Sulfate (Albuterol 2.5mg/3ml Neb Ud) 2.5 mg HHN Q4HRT PRN PRN Reason: Shortness of Breath Stop: 07/15/17 15:38 Alprazolam (Xanax) 0.25 mg PO Q12H [facility] Stop: 07/15/17 08:14 Last Admin: 05/17/17 09:06 Dose: 0.25 mg Amlodipine Besylate (Norvasc) 5 mg GT DAILY [facility] Stop: 07/15/17 08:59 Last Admin: 05/17/17 09:06 Dose: 5 mg Docusate Sodium (Colace) 200 mg PO BID [facility] Stop: 07/15/17 08:59 Last Admin: 05/17/17 09:06 Dose: 200 mg Enoxaparin Sodium (Lovenox) 20 mg SUBQ DAILY [facility] Stop: 07/15/17 08:59 Last Admin: 05/17/17 09:09 Dose: 20 mg Famotidine (Pepcid) 20 mg GT DAILY [facility] Stop: 07/15/17 08:59 Last Admin: 05/17/17 09:06 Dose: 20 mg Hydralazine HCl (Apresoline) 10 mg PO QID PRN PRN Reason: SBP ABOVE 160 Stop: 07/14/17 21:26 Azithromycin 500 mg/ Sodium (Chloride) 250 mls @ 250 mls/hr IV Q24HR [facility] Stop: 07/15/17 09:44 Last Admin: 05/17/17 09:07 Dose: 250 mls/hr Ceftriaxone Sodium 1 gm/ (Dextrose) 50 mls @ 100 mls/hr IV Q24H [facility] Stop: 07/15/17 09:44 Last Admin: 05/17/17 10:42 Dose: 100 mls/hr Sodium Chloride (Nacl 0.45%) 1,000 mls @ 100 mls/hr IV .Q10H [facility] Stop: 07/15/17 14:29 Last Admin: 05/17/17 05:54 Dose: 100 mls/hr Potassium Chloride 40 meq/Lidocaine HCl 25 mg/ Sodium Chloride 272.5 mls @ 68 mls/hr IV X1 ONE Stop: 05/17/17 15:24 Insulin Aspart (Novolog) 0 units SUBQ Q6HR [facility] PRN Reason: Protocol Stop: 07/16/17 05:59 Last Admin: 05/17/17 11:59 Dose: 7 ud Insulin Detemir (Levemir Insulin) 10 units SUBQ HS [facility] PRN Reason: Protocol Stop: 07/16/17 20:59 Loperamide HCl (Imodium) 2 mg PO Q6H PRN PRN Reason: Diarrhea Stop: 07/14/17 21:26 Mupirocin (Bactroban Oint) 1 appl NS BID [facility] Stop: 05/22/17 09:01 Ondansetron HCl (Zofran Odt) 4 mg SL Q6HR PRN PRN Reason: Nausea Stop: 07/14/17 21:26 Continue IV fluid half NS Sodium and kidney function improved Replace potassium Follow-up electrolytes, CBC, Mg still w/ pancytopenia increase K to bid Lab - Result Diagrams 05/24/17 05:30 05/24/17 05:40 25 Nutritional Asmnt/Malnutr-PDOC - Dietary Evaluation Malnutrition Findings (Please click <Entered> for more info): Nutritional Asmnt/Malnutrition Start: 05/16/17 13: 09 Text: Status: Complete Freq: Document 05/16/17 13:09 GSUN (Rec: 05/16/17 13:17 GSUN [email or web address]) Nutritional Asmnt/Malnutrition Patient General Information Nutritional Screening High Risk Screening Diagnosis Azotemia, dehydration, Pertinent Medical Hx/Surgical Hx HTN, asthma/COPD, CVA, DM, recent respiratory failure/PNA requiring intubation and evetually trach and PEG Subjective Information 76 year old female. Lab trigger glucose 489H. Pt made eye contact, mumbled, trach, unable to interview. No severe muscle/fat wasting noted. Discussed with SPIKE Meade who discuseed with MD Brown regarding formula switch to Diabetisource due to glucoer 489H and hx DM. RN stated pt has been toelrating tube feeding well, no residuals. Current Diet Order/ Nutrition Support Isosource at 40ml/hr x 20hrs Pertinent Medications D5w, Colace, Novolog, Zofran Pertinent Labs 05/15: A1c 7.5H 05/16: potassium 3.4L, glucose 489H, BUN 52H, creaitnine 0.9 WNL Nutritional Hx/Data Height 1.57 m Height (Calculated Centimeters) 157.5 Current Weight (lbs) 59.194 kg Weight (Calculated Kilograms) 59.2 Weight (Calculated Grams) 04959.8 [place] Body Weight 110 Weight Status Approriate GI Symptoms Usual diet at home Chart: Diabetisource at 60ml/ hr x 18hrs, providing 1296kcal . Skin Integrity/Comment: Fer 14. Bilateral upper medial thigh redness. Estimated Nutritional Goals BEE in Kcals: Using Current wt Calories/Kcals/Kg CBW 130.5lb/59.3kg Kcals Calculated 1364-1660kcal (23-28kcal/kg) Protein: Using Current wt Protein Calculated 59g (1g/kg) Fluid: ml 1483-1779ml (1ml/kcal) Nutritional Problem 1. Problem Problem Altered nutrition related laboratory values related to Etiology DM aeb Signs/Symptoms: glucose 489 this AM, hx DM Intervention/Recommendation Comments 1. Recommend Diabetisource at 60ml/hr x 20hrs, providing 1200ml total volume, 1440kcal, 72g protein. Expected Outcomes/Goals Expected Outcomes/Goals 1. Pt to meet 100% of estimated nutritional needs on tube feeding with tolerance.
[2017-05-25] MEDS: Potassium Chloride 20 mEq ER Tab PO SCH (18:18)
[2017-05-25] MEDS: Insulin Detemir 100 units/mL 10mL Vial SUBQ SCH (22:05)
[2017-05-26] MEDS: INSULIN ASPART, RECOMBINANT 100 UNITS/ML SUBQ SCH ×4 (00:46→17:16)
[2017-05-26] MEDS: Meropenem 1 gm in NS 0.9% 100 ML IV SCH ×3 (05:30→21:32)
[2017-05-26 06:47] LABS: HEMATOCRIT 27.3 % (35.0-45.0); HEMOGLOBIN 9.3 gm/dL (11.7-16.1); MEAN CELL VOLUME 90.2 fl (81-100); MEAN CORPUSCULAR HEMOGLOBIN 30.8 pg (27.0-31.0); MEAN CORPUSCULAR HGB CONC 34.1 pg (28.0-36.0); MEAN PLATELET VOLUME 8.2 fl; PLATELET COUNT 120 Th/cmm (150-400); RED BLOOD COUNT 3.02 Mil/cmm (3.80-5.20); RED CELL DISTRIBUTION WIDTH 15.8 % (11.5-20.0)
[2017-05-26 07:06] LABS: ANION GAP 5.7 (7.0-16.0); BUN - UREA NITROGEN 22 mg/dL (7-25); CALCIUM SERUM 8.3 mg/dL (8.6-10.3); CARBON DIOXIDE 26.6 mEq/L (21.0-31.0); CHLORIDE 107 mEq/L (98-107); CREATININE - SERUM 0.5 mg/dL (0.6-1.2); GLUCOSE 112 mg/dL (70-105); MAGNESIUM 1.7 mg/dL (1.9-2.7); POTASSIUM SERUM 3.3 mEq/L (3.5-5.1); SODIUM SERUM 136 mEq/L (136-145)
[2017-05-26 07:33] LABS: WHITE BLOOD COUNT 2.4 Th/cmm (4.8-10.8)
[2017-05-26] MEDS: Potassium Chloride 20 mEq ER Tab PO SCH ×2 (09:30→16:49)
[2017-05-26] MEDS: Docusate Sodium 100 mg/10 mL UD GT SCH ×2 (09:52→16:48)
[2017-05-26] MEDS: Lactobacillus Rhamnosus 10 Billion CFU Capsule PO SCH (09:53)
[2017-05-26 10:20] LABS: BAND NEUTROPHILE 1 % (0-10); NEUTROPHILS 53 % (40-80); TOTAL CELLS COUNTED 100
[2017-05-26 10:21] LABS: ANISOCYTOSIS 1+; PLATELET ESTIMATE DECREASED PLATELETS (NORMAL); PLATELET MORPHOLOGY NORMAL (NORMAL)
[2017-05-26] MEDS ORDERED: Mag Sulfate 2gm/50mL Premix 2 GM/50 ML BAG IV ONE (13:52)
[2017-05-26] MEDS ORDERED: Potassium Chloride 20 mEq ER Tab PO ONE (13:56)
--- NOTE | 2017-05-26 14:06 | General Progress Note ---
Subjective - Review of Systems Service Date: 05/26/17 Subjective: sleeping, comfortable Objective - Results Result Diagrams: 05/26/17 06:30 05/26/17 06:30 Recent Labs: Laboratory Last Values WBC 2.4 Th/cmm (4.8-10.8) L* 05/26/17 06:30 RBC 3.02 Mil/cmm (3.80-5.20) L 05/26/17 06:30 Hgb 9.3 gm/dL (11.7-16.1) L 05/26/17 06:30 Hct 27.3 % (35.0-45.0) L 05/26/17 06:30 MCV 90.2 fl (81-100) 05/26/17 06:30 MCH 30.8 pg (27.0-31.0) 05/26/17 06:30 MCHC Differential 34.1 pg (28.0-36.0) 05/26/17 06:30 RDW 15.8 % (11.5-20.0) 05/26/17 06:30 Plt Count 120 Th/cmm (150-400) L 05/26/17 06:30 MPV 8.2 fl 05/26/17 06:30 Band Neutrophils % 1 % (0-10) 05/26/17 06:30 Neutrophils (Manual) 53 % (40-80) 05/26/17 06:30 Lymphocytes 40 % (20-50) 05/26/17 06:30 Monocytes 4 % (2-10) 05/26/17 06:30 Eosinophils 3 % (0-5) 05/24/17 05:30 Metamyelocytes % (0-0) 05/24/17 05:30 Nucleated RBCs 1.0 % (0-0) H 05/20/17 06:07 Atypical Lymphocytes 2 % 05/26/17 06:30 Platelet Estimate DECREASED PLATELETS (NORMAL) 05/26/17 06:30 Platelet Morphology NORMAL (NORMAL) 05/26/17 06:30 Polychromasia 1+ 05/18/17 06:35 Anisocytosis 1+ 05/26/17 06:30 RBC Morph Micro Appear ABNORMAL (NORMAL) 05/26/17 06:30 Total Retics Counted 0.4 % (0.5-1.5) L 05/23/17 06:25 Absolute Retic 13.6 Th/cmm 05/23/17 06:25 Corrected Retic Count 0.3 % (0.5-1.5) L 05/23/17 06:25 Eos Smear Source URINE 05/16/17 22:55 Eos Smear Total Cells NONE SEEN (NONE SEEN) 05/16/17 22:55 PT 9.5 SECONDS (9.5-11.5) 05/22/17 06:30 INR 0.91 (0.5-1.4) 05/22/17 06:30 PTT (Actin FS) 21.6 SECONDS (26.0-38.0) L 05/15/17 18:56 Sodium 136 mEq/L (136-145) 05/26/17 06:30 Potassium 3.3 mEq/L (3.5-5.1) L 05/26/17 06:30 Chloride 107 mEq/L (98-107) 05/26/17 06:30 Carbon Dioxide 26.6 mEq/L (21.0-31.0) 05/26/17 06:30 Anion Gap 5.7 (7.0-16.0) L 05/26/17 06:30 BUN 22 mg/dL (7-25) 05/26/17 06:30 Creatinine 0.5 mg/dL (0.6-1.2) L 05/26/17 06:30 Est GFR ( Amer) TNP 05/26/17 06:30 Est GFR (Non-Af Amer) TNP 05/26/17 06:30 BUN/Creatinine Ratio 44.0 05/26/17 06:30 Glucose 112 mg/dL (70-105) H 05/26/17 06:30 POC Glucose 173 MG/DL (70 - 105) H 05/26/17 11:10 Hemoglobin A1c % 7.5 % (4.0-6.0) H 05/15/17 18:56 Whole Bld Lactic Acid 1.71 mmol/L (0.60-1.99) 05/15/17 18:56 Calcium 8.3 mg/dL (8.6-10.3) L 05/26/17 06:30 Magnesium 1.7 mg/dL (1.9-2.7) L 05/26/17 06:30 Iron 29 ug/dL (27-139) 05/20/17 06:07 TIBC 126 ug/dL (250-450) L 05/20/17 06:07 Iron Saturation 23 % (15-55) 05/20/17 06:07 Unsaturated IBC 97 ug/dL (118-369) L 05/20/17 06:07 Ferritin 1243 ng/mL (15-150) H 05/23/17 06:25 Total Bilirubin 0.3 mg/dL (0.3-1.0) 05/21/17 06:15 AST 15 U/L (13-39) 05/21/17 06:15 ALT 19 U/L (7-52) 05/21/17 06:15 Alkaline Phosphatase 53 U/L (34-104) 05/21/17 06:15 Creatine Kinase 20 U/L (30-223) L 05/15/17 18:56 Troponin I 0.02 ng/mL (0.01-0.05) 05/15/17 18:56 B-Natriuretic Peptide 194.0 pg/mL (5.0-100.0) H 05/15/17 18:56 Total Protein 5.0 gm/dL (6.0-8.3) L 05/21/17 06:15 Albumin 2.4 gm/dL (3.7-5.3) L 05/21/17 06:15 Globulin 2.6 gm/dL 05/21/17 06:15 Albumin/Globulin Ratio 0.9 (1.0-1.8) L 05/21/17 06:15 Triglycerides 173 mg/dL (<150) H 05/16/17 05:01 Cholesterol 135 mg/dL (<200) 05/16/17 05:01 LDL Cholesterol Direct 97 mg/dL (75-193) 05/16/17 05:01 HDL Cholesterol 32 mg/dL (23-92) 05/16/17 05:01 Carcinoembryonic Ag 2.7 ng/mL (0.0-4.7) 05/20/17 06:07 Vitamin B12 1097 pg/mL (211-946) H 05/23/17 06:25 Folic Acid >20.0 ng/mL (>3.0) 05/23/17 06:25 TSH 0.88 uIU/ml (0.34-5.60) 05/16/17 05:01 Urine Source MIDSTREAM 05/15/17 19:20 Urine Color YELLOW 05/15/17 19:20 Urine Clarity CLEAR (CLEAR) 05/15/17 19:20 Urine pH 6.0 (4.6 - 8.0) 05/15/17 19:20 Ur Specific [place] 1.020 (1.005-1.030) 05/15/17 19:20 Urine Protein NEGATIVE mg/dL (NEGATIVE) 05/15/17 19:20 Urine Glucose (UA) NEGATIVE mg/dL (NEGATIVE) 05/15/17 19:20 Urine Ketones NEGATIVE mg/dL (NEGATIVE) 05/15/17 19:20 Urine Blood NEGATIVE (NEGATIVE) 05/15/17 19:20 Urine Nitrate NEGATIVE (NEGATIVE) 05/15/17 19:20 Urine Bilirubin NEGATIVE (NEGATIVE) 05/15/17 19:20 Urine Urobilinogen 0.2 E.U./dL (0.2 - 1.0) 05/15/17 19:20 Ur Leukocyte Esterase NEGATIVE (NEGATIVE) 05/15/17 19:20 Urine RBC NONE SEEN /hpf (0-5) 05/15/17 19:20 Urine WBC 0-2 /hpf (0-5) 05/15/17 19:20 Ur Epithelial Cells FEW /lpf (FEW) 05/15/17 19:20 Urine Bacteria NONE SEEN /hpf (NONE SEEN) 05/15/17 19:20 Urine Osmolality 546 mOsmol/kg 05/16/17 22:55 Ur Random Sodium 58 mmol/L 05/16/17 22:55 Urine Creatinine 51.8 mg/dl (Not Estab.) 05/16/17 22:55 Urine Microalbumin 390.3 ug/mL (Not Estab.) 05/16/17 22:55 Microalb/Creat Ratio 753.5 mg/g creat (0.0-30.0) H 05/16/17 22:55 Stool Occult Blood POSITIVE (NEGATIVE) 05/19/17 04:42 Vancomycin Trough 10.5 ug/mL (10-20) 05/25/17 08:00 Helicobacter pylori Ab NEGATIVE (NEGATIVE) 05/22/17 09:43 Blood Type A POSITIVE 05/20/17 11:45 Antibody Screen NEGATIVE 05/20/17 11:45 Crossmatch See Detail 05/20/17 11:45 - Physical Exam Vitals and I&O: Vital Signs Temp 96.8 F 05/26/17 04:00 Pulse 82 05/26/17 09:54 Resp 16 05/26/17 08:30 BP 136/76 05/26/17 09:54 Pulse Ox 99 05/26/17 08:30 Intake & Output 05/25/17 05/26/17 05/26/17 18:59 06:59 18:59 Intake Total 1090 1000 Balance 1090 1000 Weight (lbs) 62.596 kg 76.702 kg Intake: Intake, IV Amount 250 450 Meropenem 1 gm In Sodium 200 Chloride 0.9% 100 ml @ 100 mls/hr IV Q8H [facility] Rx# :[id number] Vancomycin HCl 750 mg In 250 250 Sodium Chloride 0.9% 250 ml @ 250 mls/hr IV Q12HR [facility] Rx#:[id number] Oral 0 Tube Feeding 540 550 Other 300 Other: # Voids 3 3 # Bowel Movements 3 2 Stool Characteristics Soft Brown Active Medications: Current Medications Acetaminophen (Tylenol) 650 mg GT Q4HR PRN PRN Reason: Pain or Fever >101 Stop: 07/14/17 21:26 Acetaminophen/Hydrocodone Bitart ([place] 5mg/325mg) 1 tab GT TID PRN PRN Reason: Pain (Mild) Stop: 07/14/17 21:26 Albuterol Sulfate (Albuterol 2.5mg/3ml Neb Ud) 2.5 mg HHN Q4HRT PRN PRN Reason: Shortness of Breath Stop: 07/15/17 15:38 Alprazolam (Xanax) 0.25 mg GT Q12H [facility] Stop: 07/15/17 08:14 Last Admin: 05/26/17 11:57 Dose: 0.25 mg Amlodipine Besylate (Norvasc) 10 mg PO DAILY [facility] Stop: 07/21/17 08:59 Last Admin: 05/26/17 09:54 Dose: 10 mg Benazepril HCl (Lotensin) 10 mg PO BID [facility] Stop: 07/22/17 09:29 Last Admin: 05/26/17 09:53 Dose: 10 mg Docusate Sodium (Colace) 200 mg GT BID [facility] Stop: 07/18/17 16:59 Last Admin: 05/26/17 09:52 Dose: 200 mg Famotidine (Pepcid) 20 mg GT DAILY [facility] Stop: 07/15/17 08:59 Last Admin: 05/26/17 09:54 Dose: 20 mg Hydralazine HCl (Apresoline) 10 mg GT QID PRN PRN Reason: SBP ABOVE 160 Stop: 07/14/17 21:26 Last Admin: 05/25/17 10:24 Dose: 10 mg Meropenem 1 gm/ Sodium (Chloride) 100 mls @ 100 mls/hr IV Q8H [facility] Stop: 07/19/17 21:29 Last Admin: 05/26/17 12:00 Dose: 100 mls/hr Vancomycin HCl 750 mg/ Sodium (Chloride) 250 mls @ 250 mls/hr IV Q12HR [facility] Stop: 07/24/17 08:59 Last Admin: 05/26/17 10:23 Dose: 166 mls/hr Magnesium Sulfate (Magnesium Sulfate Premix) 2 gm in 50 mls @ 25 mls/hr IV X1 ONE Stop: 05/26/17 15:51 Insulin Aspart (Novolog) 0 units SUBQ Q6HR [facility] PRN Reason: Protocol Stop: 07/16/17 05:59 Last Admin: 05/26/17 11:55 Dose: 3 unit Insulin Detemir (Levemir Insulin) 10 units SUBQ HS [facility] PRN Reason: Protocol Stop: 07/16/17 20:59 Last Admin: 05/25/17 22:05 Dose: 10 units Lactobacillus Rhamnosus (Culturelle) 1 each PO DAILY [facility] Stop: 07/21/17 08:59 Last Admin: 05/26/17 09:53 Dose: 1 each Loperamide HCl (Imodium) 2 mg GT Q6H PRN PRN Reason: Diarrhea Stop: 07/14/17 21:26 Magnesium Hydroxide (Milk Of Magnesia) 30 ml GT HS PRN PRN Reason: Constipation Stop: 07/18/17 09:39 Metoclopramide HCl (Reglan) 5 mg IVP Q4HR PRN PRN Reason: Vomiting Stop: 07/20/17 21:14 Last Admin: 05/21/17 21:40 Dose: 5 mg Miscellaneous (Probiotic Screen) 1 ea MC PRN PRN PRN Reason: PROTOCOL Stop: 07/20/17 17:25 Miscellaneous (Vancomycin Iv Per Pharmacy) 1 ea MC PRN PRN PRN Reason: DOSE VANCOMYCIN Stop: 07/23/17 10:50 Ondansetron HCl (Zofran Odt) 4 mg SL Q6HR PRN PRN Reason: Nausea Stop: 07/14/17 21:26 Last Admin: 05/21/17 10:12 Dose: 4 mg Ondansetron HCl (Zofran) 4 mg IV PRN PRN PRN Reason: Nausea / Vomiting Stop: 07/21/17 09:25 Potassium Chloride (Klor-Con) 20 meq PO BID [facility] Stop: 07/24/17 16:59 Last Admin: 05/26/17 09:30 Dose: 20 meq General: Cooperative, No acute distress, Other (Sleeping confortable) HEENT: Atraumatic Neck: Supple, +2 carotid pulse wo bruit, Other (Tracheostomy in place) Cardiovascular: Regular rate, Normal S1, Normal S2 Lungs: Other (few rhonchi) Abdomen: Bowel sounds, Soft, Other (PEG in place) Extremities: Other (No edema), no Edema Neurological: Sensation intact Skin: Other (Warm and dry), no Rash Psych/Mental Status: Other (Sleeping but arousable) Assessment/Plan - Assessment Assessment: Hypernatremia secondary to dehydration Hypokalemia without hyperaldosteronism Prerenal azotemia Pancytopenia possible MDS Status post respiratory failure on PMV Type II DM with CKD Essential hypertension CKD Bronchial asthma/COPD Status post CVA Dyslipidemia Rheumatoid arthritis Moderate malnutrition - Plan Plan: Lab - Result Diagrams 05/17/17 05:19 05/17/17 05:19 Current Medications Acetaminophen (Tylenol) 650 mg PO Q4HR PRN PRN Reason: Pain or Fever >101 Stop: 07/14/17 21:26 Last Admin: 05/16/17 04:34 Dose: 650 mg Acetaminophen/Hydrocodone Bitart ([place] 5mg/325mg) 1 tab PO TID PRN PRN Reason: Pain (Mild) Stop: 07/14/17 21:26 Albuterol Sulfate (Albuterol 2.5mg/3ml Neb Ud) 2.5 mg HHN Q4HRT PRN PRN Reason: Shortness of Breath Stop: 07/15/17 15:38 Alprazolam (Xanax) 0.25 mg PO Q12H [facility] Stop: 07/15/17 08:14 Last Admin: 05/17/17 09:06 Dose: 0.25 mg Amlodipine Besylate (Norvasc) 5 mg GT DAILY [facility] Stop: 07/15/17 08:59 Last Admin: 05/17/17 09:06 Dose: 5 mg Docusate Sodium (Colace) 200 mg PO BID [facility] Stop: 07/15/17 08:59 Last Admin: 05/17/17 09:06 Dose: 200 mg Enoxaparin Sodium (Lovenox) 20 mg SUBQ DAILY [facility] Stop: 07/15/17 08:59 Last Admin: 05/17/17 09:09 Dose: 20 mg Famotidine (Pepcid) 20 mg GT DAILY [facility] Stop: 07/15/17 08:59 Last Admin: 05/17/17 09:06 Dose: 20 mg Hydralazine HCl (Apresoline) 10 mg PO QID PRN PRN Reason: SBP ABOVE 160 Stop: 07/14/17 21:26 Azithromycin 500 mg/ Sodium (Chloride) 250 mls @ 250 mls/hr IV Q24HR [facility] Stop: 07/15/17 09:44 Last Admin: 05/17/17 09:07 Dose: 250 mls/hr Ceftriaxone Sodium 1 gm/ (Dextrose) 50 mls @ 100 mls/hr IV Q24H [facility] Stop: 07/15/17 09:44 Last Admin: 05/17/17 10:42 Dose: 100 mls/hr Sodium Chloride (Nacl 0.45%) 1,000 mls @ 100 mls/hr IV .Q10H [facility] Stop: 07/15/17 14:29 Last Admin: 05/17/17 05:54 Dose: 100 mls/hr Potassium Chloride 40 meq/Lidocaine HCl 25 mg/ Sodium Chloride 272.5 mls @ 68 mls/hr IV X1 ONE Stop: 05/17/17 15:24 Insulin Aspart (Novolog) 0 units SUBQ Q6HR [facility] PRN Reason: Protocol Stop: 07/16/17 05:59 Last Admin: 05/17/17 11:59 Dose: 7 ud Insulin Detemir (Levemir Insulin) 10 units SUBQ HS [facility] PRN Reason: Protocol Stop: 07/16/17 20:59 Loperamide HCl (Imodium) 2 mg PO Q6H PRN PRN Reason: Diarrhea Stop: 07/14/17 21:26 Mupirocin (Bactroban Oint) 1 appl NS BID [facility] Stop: 05/22/17 09:01 Ondansetron HCl (Zofran Odt) 4 mg SL Q6HR PRN PRN Reason: Nausea Stop: 07/14/17 21:26 Continue IV fluid half NS Sodium and kidney function improved Replace potassium, Mg Follow-up electrolytes, CBC, Mg still w/ pancytopenia increase K to bid Lab - Result Diagrams 05/24/17 05:30 05/24/17 05:40 25 Nutritional Asmnt/Malnutr-PDOC - Dietary Evaluation Malnutrition Findings (Please click <Entered> for more info): Nutritional Asmnt/Malnutrition Start: 05/16/17 13: 09 Text: Status: Complete Freq: Document 05/16/17 13:09 GSUN (Rec: 05/16/17 13:17 GSUN [email or web address]) Nutritional Asmnt/Malnutrition Patient General Information Nutritional Screening High Risk Screening Diagnosis Azotemia, dehydration, Pertinent Medical Hx/Surgical Hx HTN, asthma/COPD, CVA, DM, recent respiratory failure/PNA requiring intubation and evetually trach and PEG Subjective Information 76 year old female. Lab trigger glucose 489H. Pt made eye contact, mumbled, trach, unable to interview. No severe muscle/fat wasting noted. Discussed with SPIKE Meade who discuseed with MD Brown regarding formula switch to Diabetisource due to glucoer 489H and hx DM. RN stated pt has been toelrating tube feeding well, no residuals. Current Diet Order/ Nutrition Support Isosource at 40ml/hr x 20hrs Pertinent Medications D5w, Colace, Novolog, Zofran Pertinent Labs 05/15: A1c 7.5H 05/16: potassium 3.4L, glucose 489H, BUN 52H, creaitnine 0.9 WNL Nutritional Hx/Data Height 1.57 m Height (Calculated Centimeters) 157.5 Current Weight (lbs) 59.194 kg Weight (Calculated Kilograms) 59.2 Weight (Calculated Grams) 65968.8 [place] Body Weight 110 Weight Status Approriate GI Symptoms Usual diet at home Chart: Diabetisource at 60ml/ hr x 18hrs, providing 1296kcal . Skin Integrity/Comment: Fer 14. Bilateral upper medial thigh redness. Estimated Nutritional Goals BEE in Kcals: Using Current wt Calories/Kcals/Kg CBW 130.5lb/59.3kg Kcals Calculated 1364-1660kcal (23-28kcal/kg) Protein: Using Current wt Protein Calculated 59g (1g/kg) Fluid: ml 1483-1779ml (1ml/kcal) Nutritional Problem 1. Problem Problem Altered nutrition related laboratory values related to Etiology DM aeb Signs/Symptoms: glucose 489 this AM, hx DM Intervention/Recommendation Comments 1. Recommend Diabetisource at 60ml/hr x 20hrs, providing 1200ml total volume, 1440kcal, 72g protein. Expected Outcomes/Goals Expected Outcomes/Goals 1. Pt to meet 100% of estimated nutritional needs on tube feeding with tolerance.
[2017-05-26] MEDS: Insulin Detemir 100 units/mL 10mL Vial SUBQ SCH (21:32)
[2017-05-27] MEDS: INSULIN ASPART, RECOMBINANT 100 UNITS/ML SUBQ SCH ×3 (03:15→12:30)
[2017-05-27] MEDS: Meropenem 1 gm in NS 0.9% 100 ML IV SCH (05:53)
[2017-05-27 07:49] LABS: ANION GAP 5.7 (7.0-16.0); BUN - UREA NITROGEN 25 mg/dL (7-25); CALCIUM SERUM 8.4 mg/dL (8.6-10.3); CHLORIDE 110 mEq/L (98-107); CREATININE - SERUM 0.5 mg/dL (0.6-1.2); GLUCOSE 146 mg/dL (70-105); MAGNESIUM 2.1 mg/dL (1.9-2.7); POTASSIUM SERUM 3.7 mEq/L (3.5-5.1); SODIUM SERUM 139 mEq/L (136-145)
[2017-05-27] MEDS ORDERED: Potassium Chloride 20 mEq ER Tab PO SCH (09:00)
[2017-05-27] MEDS: Lactobacillus Rhamnosus 10 Billion CFU Capsule PO SCH (09:23)
[2017-05-27] MEDS: Potassium Chloride 20 mEq ER Tab PO SCH (09:23)
[2017-05-27] MEDS: Docusate Sodium 100 mg/10 mL UD GT SCH (09:24)
--- NOTE | 2017-05-27 10:24 | General Progress Note ---
Subjective - Review of Systems Service Date: 05/27/17 Objective - Results Result Diagrams: 05/26/17 06:30 05/27/17 05:55 Recent Labs: Laboratory Last Values WBC 2.4 Th/cmm (4.8-10.8) L* 05/26/17 06:30 RBC 3.02 Mil/cmm (3.80-5.20) L 05/26/17 06:30 Hgb 9.3 gm/dL (11.7-16.1) L 05/26/17 06:30 Hct 27.3 % (35.0-45.0) L 05/26/17 06:30 MCV 90.2 fl (81-100) 05/26/17 06:30 MCH 30.8 pg (27.0-31.0) 05/26/17 06:30 MCHC Differential 34.1 pg (28.0-36.0) 05/26/17 06:30 RDW 15.8 % (11.5-20.0) 05/26/17 06:30 Plt Count 120 Th/cmm (150-400) L 05/26/17 06:30 MPV 8.2 fl 05/26/17 06:30 Band Neutrophils % 1 % (0-10) 05/26/17 06:30 Neutrophils (Manual) 53 % (40-80) 05/26/17 06:30 Lymphocytes 40 % (20-50) 05/26/17 06:30 Monocytes 4 % (2-10) 05/26/17 06:30 Eosinophils 3 % (0-5) 05/24/17 05:30 Metamyelocytes % (0-0) 05/24/17 05:30 Nucleated RBCs 1.0 % (0-0) H 05/20/17 06:07 Atypical Lymphocytes 2 % 05/26/17 06:30 Platelet Estimate DECREASED PLATELETS (NORMAL) 05/26/17 06:30 Platelet Morphology NORMAL (NORMAL) 05/26/17 06:30 Polychromasia 1+ 05/18/17 06:35 Anisocytosis 1+ 05/26/17 06:30 RBC Morph Micro Appear ABNORMAL (NORMAL) 05/26/17 06:30 Total Retics Counted 0.4 % (0.5-1.5) L 05/23/17 06:25 Absolute Retic 13.6 Th/cmm 05/23/17 06:25 Corrected Retic Count 0.3 % (0.5-1.5) L 05/23/17 06:25 Eos Smear Source URINE 05/16/17 22:55 Eos Smear Total Cells NONE SEEN (NONE SEEN) 05/16/17 22:55 PT 9.5 SECONDS (9.5-11.5) 05/22/17 06:30 INR 0.91 (0.5-1.4) 05/22/17 06:30 PTT (Actin FS) 21.6 SECONDS (26.0-38.0) L 05/15/17 18:56 Sodium 139 mEq/L (136-145) 05/27/17 05:55 Potassium 3.7 mEq/L (3.5-5.1) 05/27/17 05:55 Chloride 110 mEq/L (98-107) H 05/27/17 05:55 Carbon Dioxide 27.0 mEq/L (21.0-31.0) 05/27/17 05:55 Anion Gap 5.7 (7.0-16.0) L 05/27/17 05:55 BUN 25 mg/dL (7-25) 05/27/17 05:55 Creatinine 0.5 mg/dL (0.6-1.2) L 05/27/17 05:55 Est GFR ( Amer) TNP 05/27/17 05:55 Est GFR (Non-Af Amer) TNP 05/27/17 05:55 BUN/Creatinine Ratio 50.0 05/27/17 05:55 Glucose 146 mg/dL (70-105) H 05/27/17 05:55 POC Glucose 167 MG/DL (70 - 105) H 05/27/17 05:47 Hemoglobin A1c % 7.5 % (4.0-6.0) H 05/15/17 18:56 Whole Bld Lactic Acid 1.71 mmol/L (0.60-1.99) 05/15/17 18:56 Calcium 8.4 mg/dL (8.6-10.3) L 05/27/17 05:55 Magnesium 2.1 mg/dL (1.9-2.7) 05/27/17 05:55 Iron 29 ug/dL (27-139) 05/20/17 06:07 TIBC 126 ug/dL (250-450) L 05/20/17 06:07 Iron Saturation 23 % (15-55) 05/20/17 06:07 Unsaturated IBC 97 ug/dL (118-369) L 05/20/17 06:07 Ferritin 1243 ng/mL (15-150) H 05/23/17 06:25 Total Bilirubin 0.3 mg/dL (0.3-1.0) 05/21/17 06:15 AST 15 U/L (13-39) 05/21/17 06:15 ALT 19 U/L (7-52) 05/21/17 06:15 Alkaline Phosphatase 53 U/L (34-104) 05/21/17 06:15 Creatine Kinase 20 U/L (30-223) L 05/15/17 18:56 Troponin I 0.02 ng/mL (0.01-0.05) 05/15/17 18:56 B-Natriuretic Peptide 194.0 pg/mL (5.0-100.0) H 05/15/17 18:56 Total Protein 5.0 gm/dL (6.0-8.3) L 05/21/17 06:15 Albumin 2.4 gm/dL (3.7-5.3) L 05/21/17 06:15 Globulin 2.6 gm/dL 05/21/17 06:15 Albumin/Globulin Ratio 0.9 (1.0-1.8) L 05/21/17 06:15 Triglycerides 173 mg/dL (<150) H 05/16/17 05:01 Cholesterol 135 mg/dL (<200) 05/16/17 05:01 LDL Cholesterol Direct 97 mg/dL (75-193) 05/16/17 05:01 HDL Cholesterol 32 mg/dL (23-92) 05/16/17 05:01 Carcinoembryonic Ag 2.7 ng/mL (0.0-4.7) 05/20/17 06:07 Vitamin B12 1097 pg/mL (211-946) H 05/23/17 06:25 Folic Acid >20.0 ng/mL (>3.0) 05/23/17 06:25 TSH 0.88 uIU/ml (0.34-5.60) 05/16/17 05:01 Urine Source MIDSTREAM 05/15/17 19:20 Urine Color YELLOW 08/30/17 19:20 Urine Clarity CLEAR (CLEAR) 05/15/17 19:20 Urine pH 6.0 (4.6 - 8.0) 05/15/17 19:20 Ur Specific [place] 1.020 (1.005-1.030) 05/15/17 19:20 Urine Protein NEGATIVE mg/dL (NEGATIVE) 05/15/17 19:20 Urine Glucose (UA) NEGATIVE mg/dL (NEGATIVE) 05/15/17 19:20 Urine Ketones NEGATIVE mg/dL (NEGATIVE) 05/15/17 19:20 Urine Blood NEGATIVE (NEGATIVE) 05/15/17 19:20 Urine Nitrate NEGATIVE (NEGATIVE) 05/15/17 19:20 Urine Bilirubin NEGATIVE (NEGATIVE) 05/15/17 19:20 Urine Urobilinogen 0.2 E.U./dL (0.2 - 1.0) 05/15/17 19:20 Ur Leukocyte Esterase NEGATIVE (NEGATIVE) 05/15/17 19:20 Urine RBC NONE SEEN /hpf (0-5) 05/15/17 19:20 Urine WBC 0-2 /hpf (0-5) 05/15/17 19:20 Ur Epithelial Cells FEW /lpf (FEW) 05/15/17 19:20 Urine Bacteria NONE SEEN /hpf (NONE SEEN) 05/15/17 19:20 Urine Osmolality 546 mOsmol/kg 05/16/17 22:55 Ur Random Sodium 58 mmol/L 05/16/17 22:55 Urine Creatinine 51.8 mg/dl (Not Estab.) 05/16/17 22:55 Urine Microalbumin 390.3 ug/mL (Not Estab.) 05/16/17 22:55 Microalb/Creat Ratio 753.5 mg/g creat (0.0-30.0) H 05/16/17 22:55 Stool Occult Blood POSITIVE (NEGATIVE) 05/19/17 04:42 Vancomycin Trough 23.2 ug/mL (10-20) H 05/26/17 19:58 Helicobacter pylori Ab NEGATIVE (NEGATIVE) 05/22/17 09:43 Blood Type A POSITIVE 05/20/17 11:45 Antibody Screen NEGATIVE 05/20/17 11:45 Crossmatch See Detail 05/20/17 11:45 - Physical Exam Vitals and I&O: Vital Signs Temp 98.2 F 05/27/17 04:00 Pulse 65 05/27/17 09:23 Resp 16 05/27/17 07:58 BP 119/68 05/27/17 09:23 Pulse Ox 96 05/27/17 07:58 Intake & Output 05/26/17 05/27/17 05/27/17 18:59 06:59 18:59 Intake Total 350 700 Balance 350 700 Weight (lbs) 76.657 kg 76.657 kg Intake: Intake, IV Amount 350 700 Meropenem 1 gm In Sodium 100 100 Chloride 0.9% 100 ml @ 100 mls/hr IV Q8H [facility] Rx# :[id number] Vancomycin HCl 750 mg In 250 250 Sodium Chloride 0.9% 250 ml @ 250 mls/hr IV Q12HR [facility] Rx#:[id number] Other: Stool Characteristics Soft Soft Active Medications: Current Medications Acetaminophen (Tylenol) 650 mg GT Q4HR PRN PRN Reason: Pain or Fever >101 Stop: 07/14/17 21:26 Albuterol Sulfate (Albuterol 2.5mg/3ml Neb Ud) 2.5 mg HHN Q4HRT PRN PRN Reason: Shortness of Breath Stop: 07/15/17 15:38 Amlodipine Besylate (Norvasc) 10 mg PO DAILY [facility] Stop: 07/21/17 08:59 Last Admin: 05/27/17 09:23 Dose: 10 mg Benazepril HCl (Lotensin) 10 mg PO BID [facility] Stop: 07/22/17 09:29 Last Admin: 05/27/17 09:23 Dose: 10 mg Docusate Sodium (Colace) 200 mg GT BID [facility] Stop: 07/18/17 16:59 Last Admin: 05/27/17 09:24 Dose: 200 mg Famotidine (Pepcid) 20 mg GT DAILY [facility] Stop: 07/15/17 08:59 Last Admin: 05/27/17 09:23 Dose: 20 mg Hydralazine HCl (Apresoline) 10 mg GT QID PRN PRN Reason: SBP ABOVE 160 Stop: 07/14/17 21:26 Last Admin: 05/25/17 10:24 Dose: 10 mg Meropenem 1 gm/ Sodium (Chloride) 100 mls @ 100 mls/hr IV Q8H [facility] Stop: 07/19/17 21:29 Last Admin: 05/27/17 05:53 Dose: 100 mls/hr Vancomycin HCl 750 mg/ Sodium (Chloride) 250 mls @ 250 mls/hr IV Q12HR [facility] Stop: 07/24/17 08:59 Last Admin: 05/27/17 10:06 Dose: 166 mls/hr Insulin Aspart (Novolog) 0 units SUBQ Q6HR [facility] PRN Reason: Protocol Stop: 07/16/17 05:59 Last Admin: 05/27/17 05:51 Dose: Not Given Insulin Detemir (Levemir Insulin) 10 units SUBQ HS [facility] PRN Reason: Protocol Stop: 07/16/17 20:59 Last Admin: 05/26/17 21:32 Dose: 10 units Lactobacillus Rhamnosus (Culturelle) 1 each PO DAILY [facility] Stop: 07/21/17 08:59 Last Admin: 05/27/17 09:23 Dose: 1 each Loperamide HCl (Imodium) 2 mg GT Q6H PRN PRN Reason: Diarrhea Stop: 07/14/17 21:26 Magnesium Hydroxide (Milk Of Magnesia) 30 ml GT HS PRN PRN Reason: Constipation Stop: 07/18/17 09:39 Metoclopramide HCl (Reglan) 5 mg IVP Q4HR PRN PRN Reason: Vomiting Stop: 07/20/17 21:14 Last Admin: 05/21/17 21:40 Dose: 5 mg Miscellaneous (Probiotic Screen) 1 ea MC PRN PRN PRN Reason: PROTOCOL Stop: 07/20/17 17:25 Miscellaneous (Vancomycin Iv Per Pharmacy) 1 ea PRN PRN PRN Reason: DOSE VANCOMYCIN Stop: 07/23/17 10:50 Ondansetron HCl (Zofran Odt) 4 mg SL Q6HR PRN PRN Reason: Nausea Stop: 07/14/17 21:26 Last Admin: 05/21/17 10:12 Dose: 4 mg Ondansetron HCl (Zofran) 4 mg IV PRN PRN PRN Reason: Nausea / Vomiting Stop: 07/21/17 09:25 Potassium Chloride (Klor-Con) 20 meq PO BID [facility] Stop: 07/24/17 16:59 Last Admin: 05/27/17 09:23 Dose: 20 meq General: Cooperative, No acute distress, Other (Sleeping confortable) HEENT: Atraumatic Neck: Supple, +2 carotid pulse wo bruit, Other (Tracheostomy in place) Cardiovascular: Regular rate, Normal S1, Normal S2 Lungs: Other (few rhonchi) Abdomen: Bowel sounds, Soft, Other (PEG in place) Extremities: Other (No edema), no Edema Neurological: Sensation intact Skin: Other (Warm and dry), no Rash Psych/Mental Status: Other (Sleeping but arousable) Assessment/Plan - Assessment Assessment: * 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 * Rheumatoid arthritis * CKD cbc stable, not neutropenic. no transfusion needed Nutritional Asmnt/Malnutr-PDOC - Dietary Evaluation Malnutrition Findings (Please click <Entered> for more info): Nutritional Asmnt/Malnutrition Start: 05/16/17 13: 09 Text: Status: Complete Freq: Document 05/16/17 13:09 [facility] (Rec: 05/16/17 13:17 [id number]) Nutritional Asmnt/Malnutrition Patient General Information Nutritional Screening High Risk Screening Diagnosis Azotemia, dehydration, Pertinent Medical Hx/Surgical Hx HTN, asthma/COPD, CVA, DM, recent respiratory failure/PNA requiring intubation and evetually trach and PEG Subjective Information 76 year old female. Lab trigger glucose 489H. Pt made eye contact, mumbled, trach, unable to interview. No severe muscle/fat wasting noted. Discussed with SPIKE Meade who discuseed with MD Brown regarding formula switch to Diabetisource due to glucoer 489H and hx DM. RN stated pt has been toelrating tube feeding well, no residuals. Current Diet Order/ Nutrition Support Isosource at 40ml/hr x 20hrs Pertinent Medications D5w, Colace, Novolog, Zofran Pertinent Labs 05/15: A1c 7.5H 05/16: potassium 3.4L, glucose 489H, BUN 52H, creaitnine 0.9 WNL Nutritional Hx/Data Height 1.57 m Height (Calculated Centimeters) 157.5 Current Weight (lbs) 59.194 kg Weight (Calculated Kilograms) 59.2 Weight (Calculated Grams) 39826.8 [place] Body Weight 110 Weight Status Approriate GI Symptoms Usual diet at home Chart: Diabetisource at 60ml/ hr x 18hrs, providing 1296kcal . Skin Integrity/Comment: Fer 14. Bilateral upper medial thigh redness. Estimated Nutritional Goals BEE in Kcals: Using Current wt Calories/Kcals/Kg CBW 130.5lb/59.3kg Kcals Calculated 1364-1660kcal (23-28kcal/kg) Protein: Using Current wt Protein Calculated 59g (1g/kg) Fluid: ml 1483-1779ml (1ml/kcal) Nutritional Problem 1. Problem Problem Altered nutrition related laboratory values related to Etiology DM aeb Signs/Symptoms: glucose 489 this AM, hx DM Intervention/Recommendation Comments 1. Recommend Diabetisource at 60ml/hr x 20hrs, providing 1200ml total volume, 1440kcal, 72g protein. Expected Outcomes/Goals Expected Outcomes/Goals 1. Pt to meet 100% of estimated nutritional needs on tube feeding with tolerance.
--- NOTE | 2017-05-27 14:00 | General Progress Note ---
Subjective - Review of Systems Service Date: 05/27/17 Subjective: sleeping, comfortable Objective - Results Result Diagrams: 05/26/17 06:30 05/27/17 05:55 Recent Labs: Laboratory Last Values WBC 2.4 Th/cmm (4.8-10.8) L* 05/26/17 06:30 RBC 3.02 Mil/cmm (3.80-5.20) L 05/26/17 06:30 Hgb 9.3 gm/dL (11.7-16.1) L 05/26/17 06:30 Hct 27.3 % (35.0-45.0) L 05/26/17 06:30 MCV 90.2 fl (81-100) 05/26/17 06:30 MCH 30.8 pg (27.0-31.0) 05/26/17 06:30 MCHC Differential 34.1 pg (28.0-36.0) 05/26/17 06:30 RDW 15.8 % (11.5-20.0) 05/26/17 06:30 Plt Count 120 Th/cmm (150-400) L 05/26/17 06:30 MPV 8.2 fl 05/26/17 06:30 Band Neutrophils % 1 % (0-10) 05/26/17 06:30 Neutrophils (Manual) 53 % (40-80) 05/26/17 06:30 Lymphocytes 40 % (20-50) 05/26/17 06:30 Monocytes 4 % (2-10) 05/26/17 06:30 Eosinophils 3 % (0-5) 05/24/17 05:30 Metamyelocytes % (0-0) 05/24/17 05:30 Nucleated RBCs 1.0 % (0-0) H 05/20/17 06:07 Atypical Lymphocytes 2 % 05/26/17 06:30 Platelet Estimate DECREASED PLATELETS (NORMAL) 05/26/17 06:30 Platelet Morphology NORMAL (NORMAL) 05/26/17 06:30 Polychromasia 1+ 05/18/17 06:35 Anisocytosis 1+ 05/26/17 06:30 RBC Morph Micro Appear ABNORMAL (NORMAL) 05/26/17 06:30 Total Retics Counted 0.4 % (0.5-1.5) L 05/23/17 06:25 Absolute Retic 13.6 Th/cmm 05/23/17 06:25 Corrected Retic Count 0.3 % (0.5-1.5) L 05/23/17 06:25 Eos Smear Source URINE 05/16/17 22:55 Eos Smear Total Cells NONE SEEN (NONE SEEN) 05/16/17 22:55 PT 9.5 SECONDS (9.5-11.5) 05/22/17 06:30 INR 0.91 (0.5-1.4) 05/22/17 06:30 PTT (Actin FS) 21.6 SECONDS (26.0-38.0) L 05/15/17 18:56 Sodium 139 mEq/L (136-145) 05/27/17 05:55 Potassium 3.7 mEq/L (3.5-5.1) 05/27/17 05:55 Chloride 110 mEq/L (98-107) H 05/27/17 05:55 Carbon Dioxide 27.0 mEq/L (21.0-31.0) 05/27/17 05:55 Anion Gap 5.7 (7.0-16.0) L 05/27/17 05:55 BUN 25 mg/dL (7-25) 05/27/17 05:55 Creatinine 0.5 mg/dL (0.6-1.2) L 05/27/17 05:55 Est GFR ( Amer) TNP 05/27/17 05:55 Est GFR (Non-Af Amer) TNP 05/27/17 05:55 BUN/Creatinine Ratio 50.0 05/27/17 05:55 Glucose 146 mg/dL (70-105) H 05/27/17 05:55 POC Glucose 210 MG/DL (70 - 105) H 05/27/17 11:56 Hemoglobin A1c % 7.5 % (4.0-6.0) H 05/15/17 18:56 Whole Bld Lactic Acid 1.71 mmol/L (0.60-1.99) 05/15/17 18:56 Calcium 8.4 mg/dL (8.6-10.3) L 05/27/17 05:55 Magnesium 2.1 mg/dL (1.9-2.7) 05/27/17 05:55 Iron 29 ug/dL (27-139) 05/20/17 06:07 TIBC 126 ug/dL (250-450) L 05/20/17 06:07 Iron Saturation 23 % (15-55) 05/20/17 06:07 Unsaturated IBC 97 ug/dL (118-369) L 05/20/17 06:07 Ferritin 1243 ng/mL (15-150) H 05/23/17 06:25 Total Bilirubin 0.3 mg/dL (0.3-1.0) 05/21/17 06:15 AST 15 U/L (13-39) 05/21/17 06:15 ALT 19 U/L (7-52) 05/21/17 06:15 Alkaline Phosphatase 53 U/L (34-104) 05/21/17 06:15 Creatine Kinase 20 U/L (30-223) L 05/15/17 18:56 Troponin I 0.02 ng/mL (0.01-0.05) 05/15/17 18:56 B-Natriuretic Peptide 194.0 pg/mL (5.0-100.0) H 05/15/17 18:56 Total Protein 5.0 gm/dL (6.0-8.3) L 05/21/17 06:15 Albumin 2.4 gm/dL (3.7-5.3) L 05/21/17 06:15 Globulin 2.6 gm/dL 05/21/17 06:15 Albumin/Globulin Ratio 0.9 (1.0-1.8) L 05/21/17 06:15 Triglycerides 173 mg/dL (<150) H 05/16/17 05:01 Cholesterol 135 mg/dL (<200) 05/16/17 05:01 LDL Cholesterol Direct 97 mg/dL (75-193) 05/16/17 05:01 HDL Cholesterol 32 mg/dL (23-92) 05/16/17 05:01 Carcinoembryonic Ag 2.7 ng/mL (0.0-4.7) 05/20/17 06:07 Vitamin B12 1097 pg/mL (211-946) H 05/23/17 06:25 Folic Acid >20.0 ng/mL (>3.0) 05/23/17 06:25 TSH 0.88 uIU/ml (0.34-5.60) 05/16/17 05:01 Urine Source MIDSTREAM 05/15/17 19:20 Urine Color YELLOW 05/15/17 19:20 Urine Clarity CLEAR (CLEAR) 05/15/17 19:20 Urine pH 6.0 (4.6 - 8.0) 05/15/17 19:20 Ur Specific [place] 1.020 (1.005-1.030) 05/15/17 19:20 Urine Protein NEGATIVE mg/dL (NEGATIVE) 05/15/17 19:20 Urine Glucose (UA) NEGATIVE mg/dL (NEGATIVE) 05/15/17 19:20 Urine Ketones NEGATIVE mg/dL (NEGATIVE) 05/15/17 19:20 Urine Blood NEGATIVE (NEGATIVE) 05/15/17 19:20 Urine Nitrate NEGATIVE (NEGATIVE) 05/15/17 19:20 Urine Bilirubin NEGATIVE (NEGATIVE) 05/15/17 19:20 Urine Urobilinogen 0.2 E.U./dL (0.2 - 1.0) 05/15/17 19:20 Ur Leukocyte Esterase NEGATIVE (NEGATIVE) 05/15/17 19:20 Urine RBC NONE SEEN /hpf (0-5) 05/15/17 19:20 Urine WBC 0-2 /hpf (0-5) 05/15/17 19:20 Ur Epithelial Cells FEW /lpf (FEW) 05/15/17 19:20 Urine Bacteria NONE SEEN /hpf (NONE SEEN) 05/15/17 19:20 Urine Osmolality 546 mOsmol/kg 05/16/17 22:55 Ur Random Sodium 58 mmol/L 05/16/17 22:55 Urine Creatinine 51.8 mg/dl (Not Estab.) 05/16/17 22:55 Urine Microalbumin 390.3 ug/mL (Not Estab.) 05/16/17 22:55 Microalb/Creat Ratio 753.5 mg/g creat (0.0-30.0) H 05/16/17 22:55 Stool Occult Blood POSITIVE (NEGATIVE) 05/19/17 04:42 Vancomycin Trough 23.2 ug/mL (10-20) H 05/26/17 19:58 Helicobacter pylori Ab NEGATIVE (NEGATIVE) 05/22/17 09:43 Blood Type A POSITIVE 05/20/17 11:45 Antibody Screen NEGATIVE 05/20/17 11:45 Crossmatch See Detail 05/20/17 11:45 - Physical Exam Vitals and I&O: Vital Signs Temp 97.9 F 05/27/17 13:20 Pulse 88 05/27/17 13:20 Resp 20 05/27/17 13:20 BP 124/66 05/27/17 13:20 Pulse Ox 98 05/27/17 13:20 Intake & Output 05/26/17 05/27/17 05/27/17 18:59 06:59 18:59 Intake Total 350 700 Balance 350 700 Weight (lbs) 76.657 kg 76.657 kg Intake: Intake, IV Amount 350 700 Meropenem 1 gm In Sodium 100 100 Chloride 0.9% 100 ml @ 100 mls/hr IV Q8H [facility] Rx# :[id number] Vancomycin HCl 750 mg In 250 250 Sodium Chloride 0.9% 250 ml @ 250 mls/hr IV Q12HR [facility] Rx#:[id number] Other: Stool Characteristics Soft Soft Active Medications: Current Medications Acetaminophen (Tylenol) 650 mg GT Q4HR PRN PRN Reason: Pain or Fever >101 Stop: 07/14/17 21:26 Albuterol Sulfate (Albuterol 2.5mg/3ml Neb Ud) 2.5 mg HHN Q4HRT PRN PRN Reason: Shortness of Breath Stop: 07/15/17 15:38 Amlodipine Besylate (Norvasc) 10 mg PO DAILY [facility] Stop: 07/21/17 08:59 Last Admin: 05/27/17 09:23 Dose: 10 mg Benazepril HCl (Lotensin) 10 mg PO BID [facility] Stop: 07/22/17 09:29 Last Admin: 05/27/17 09:23 Dose: 10 mg Docusate Sodium (Colace) 200 mg GT BID [facility] Stop: 07/18/17 16:59 Last Admin: 05/27/17 09:24 Dose: 200 mg Famotidine (Pepcid) 20 mg GT DAILY [facility] Stop: 07/15/17 08:59 Last Admin: 05/27/17 09:23 Dose: 20 mg Hydralazine HCl (Apresoline) 10 mg GT QID PRN PRN Reason: SBP ABOVE 160 Stop: 07/14/17 21:26 Last Admin: 05/25/17 10:24 Dose: 10 mg Meropenem 1 gm/ Sodium (Chloride) 100 mls @ 100 mls/hr IV Q8H [facility] Stop: 07/19/17 21:29 Last Admin: 05/27/17 05:53 Dose: 100 mls/hr Vancomycin HCl 750 mg/ Sodium (Chloride) 250 mls @ 250 mls/hr IV Q12HR [facility] Stop: 07/24/17 08:59 Last Admin: 05/27/17 10:06 Dose: 166 mls/hr Insulin Aspart (Novolog) 0 units SUBQ Q6HR [facility] PRN Reason: Protocol Stop: 07/16/17 05:59 Last Admin: 05/27/17 12:30 Dose: 10 unit Insulin Detemir (Levemir Insulin) 10 units SUBQ HS [facility] PRN Reason: Protocol Stop: 07/16/17 20:59 Last Admin: 05/26/17 21:32 Dose: 10 units Lactobacillus Rhamnosus (Culturelle) 1 each PO DAILY [facility] Stop: 07/21/17 08:59 Last Admin: 05/27/17 09:23 Dose: 1 each Loperamide HCl (Imodium) 2 mg GT Q6H PRN PRN Reason: Diarrhea Stop: 07/14/17 21:26 Magnesium Hydroxide (Milk Of Magnesia) 30 ml GT HS PRN PRN Reason: Constipation Stop: 07/18/17 09:39 Metoclopramide HCl (Reglan) 5 mg IVP Q4HR PRN PRN Reason: Vomiting Stop: 07/20/17 21:14 Last Admin: 05/21/17 21:40 Dose: 5 mg Miscellaneous (Probiotic Screen) 1 ea MC PRN PRN PRN Reason: PROTOCOL Stop: 07/20/17 17:25 Miscellaneous (Vancomycin Iv Per Pharmacy) 1 ea MC PRN PRN PRN Reason: DOSE VANCOMYCIN Stop: 07/23/17 10:50 Ondansetron HCl (Zofran Odt) 4 mg SL Q6HR PRN PRN Reason: Nausea Stop: 07/14/17 21:26 Last Admin: 05/21/17 10:12 Dose: 4 mg Ondansetron HCl (Zofran) 4 mg IV PRN PRN PRN Reason: Nausea / Vomiting Stop: 07/21/17 09:25 Potassium Chloride (Klor-Con) 20 meq PO BID [facility] Stop: 07/24/17 16:59 Last Admin: 05/27/17 09:23 Dose: 20 meq General: Cooperative, No acute distress, Other (Sleeping confortable) HEENT: Atraumatic Neck: Supple, +2 carotid pulse wo bruit, Other (Tracheostomy in place) Cardiovascular: Regular rate, Normal S1, Normal S2 Lungs: Other (few rhonchi) Abdomen: Bowel sounds, Soft, Other (PEG in place) Extremities: Other (No edema), no Edema Neurological: Sensation intact Skin: Other (Warm and dry), no Rash Psych/Mental Status: Other (Sleeping but arousable) Assessment/Plan - Assessment Assessment: Hypernatremia secondary to dehydration Hypokalemia without hyperaldosteronism Prerenal azotemia Pancytopenia possible MDS Status post respiratory failure on PMV Type II DM with CKD Essential hypertension CKD Bronchial asthma/COPD Status post CVA Dyslipidemia Rheumatoid arthritis Moderate malnutrition - Plan Plan: Lab - Result Diagrams 05/17/17 05:19 05/17/17 05:19 Current Medications Acetaminophen (Tylenol) 650 mg PO Q4HR PRN PRN Reason: Pain or Fever >101 Stop: 07/14/17 21:26 Last Admin: 05/16/17 04:34 Dose: 650 mg Acetaminophen/Hydrocodone Bitart (Elizabeth 5mg/325mg) 1 tab PO TID PRN PRN Reason: Pain (Mild) Stop: 07/14/17 21:26 Albuterol Sulfate (Albuterol 2.5mg/3ml Neb Ud) 2.5 mg HHN Q4HRT PRN PRN Reason: Shortness of Breath Stop: 07/15/17 15:38 Alprazolam (Xanax) 0.25 mg PO Q12H [facility] Stop: 07/15/17 08:14 Last Admin: 05/17/17 09:06 Dose: 0.25 mg Amlodipine Besylate (Norvasc) 5 mg GT DAILY [facility] Stop: 07/15/17 08:59 Last Admin: 05/17/17 09:06 Dose: 5 mg Docusate Sodium (Colace) 200 mg PO BID [facility] Stop: 07/15/17 08:59 Last Admin: 05/17/17 09:06 Dose: 200 mg Enoxaparin Sodium (Lovenox) 20 mg SUBQ DAILY [facility] Stop: 07/15/17 08:59 Last Admin: 05/17/17 09:09 Dose: 20 mg Famotidine (Pepcid) 20 mg GT DAILY [facility] Stop: 07/15/17 08:59 Last Admin: 05/17/17 09:06 Dose: 20 mg Hydralazine HCl (Apresoline) 10 mg PO QID PRN PRN Reason: SBP ABOVE 160 Stop: 07/14/17 21:26 Azithromycin 500 mg/ Sodium (Chloride) 250 mls @ 250 mls/hr IV Q24HR [facility] Stop: 07/15/17 09:44 Last Admin: 05/17/17 09:07 Dose: 250 mls/hr Ceftriaxone Sodium 1 gm/ (Dextrose) 50 mls @ 100 mls/hr IV Q24H [facility] Stop: 07/15/17 09:44 Last Admin: 05/17/17 10:42 Dose: 100 mls/hr Sodium Chloride (Nacl 0.45%) 1,000 mls @ 100 mls/hr IV .Q10H [facility] Stop: 07/15/17 14:29 Last Admin: 05/17/17 05:54 Dose: 100 mls/hr Potassium Chloride 40 meq/Lidocaine HCl 25 mg/ Sodium Chloride 272.5 mls @ 68 mls/hr IV X1 ONE Stop: 05/17/17 15:24 Insulin Aspart (Novolog) 0 units SUBQ Q6HR [facility] PRN Reason: Protocol Stop: 07/16/17 05:59 Last Admin: 05/17/17 11:59 Dose: 7 ud Insulin Detemir (Levemir Insulin) 10 units SUBQ HS [facility] PRN Reason: Protocol Stop: 07/16/17 20:59 Loperamide HCl (Imodium) 2 mg PO Q6H PRN PRN Reason: Diarrhea Stop: 07/14/17 21:26 Mupirocin (Bactroban Oint) 1 appl NS BID [facility] Stop: 05/22/17 09:01 Ondansetron HCl (Zofran Odt) 4 mg SL Q6HR PRN PRN Reason: Nausea Stop: 07/14/17 21:26 Continue IV fluid half NS Sodium and kidney function improved Replace potassium, Mg Follow-up electrolytes, CBC, Mg still w/ pancytopenia increase K to bid agree w/ dc to [facility] Lab - Result Diagrams 05/26/17 06:30 05/27/17 05:55 25 Nutritional Asmnt/Malnutr-PDOC - Dietary Evaluation Malnutrition Findings (Please click <Entered> for more info): Nutritional Asmnt/Malnutrition Start: 05/16/17 13: 09 Text: Status: Complete Freq: Document 05/16/17 13:09 LEXLINH (Rec: 05/16/17 13:17 [email or web address]) Nutritional Asmnt/Malnutrition Patient General Information Nutritional Screening High Risk Screening Diagnosis Azotemia, dehydration, Pertinent Medical Hx/Surgical Hx HTN, asthma/COPD, CVA, DM, recent respiratory failure/PNA requiring intubation and evetually trach and PEG Subjective Information 76 year old female. Lab trigger glucose 489H. Pt made eye contact, mumbled, trach, unable to interview. No severe muscle/fat wasting noted. Discussed with SPIKE Meade who discuseed with MD Brown regarding formula switch to Diabetisource due to glucoer 489H and hx DM. RN stated pt has been toelrating tube feeding well, no residuals. Current Diet Order/ Nutrition Support Isosource at 40ml/hr x 20hrs Pertinent Medications D5w, Colace, Novolog, Zofran Pertinent Labs 05/15: A1c 7.5H 05/16: potassium 3.4L, glucose 489H, BUN 52H, creaitnine 0.9 WNL Nutritional Hx/Data Height 1.57 m Height (Calculated Centimeters) 157.5 Current Weight (lbs) 59.194 kg Weight (Calculated Kilograms) 59.2 Weight (Calculated Grams) 93034.8 [place] Body Weight 110 Weight Status Approriate GI Symptoms Usual diet at home Chart: Diabetisource at 60ml/ hr x 18hrs, providing 1296kcal . Skin Integrity/Comment: Fer 14. Bilateral upper medial thigh redness. Estimated Nutritional Goals BEE in Kcals: Using Current wt Calories/Kcals/Kg CBW 130.5lb/59.3kg Kcals Calculated 1364-1660kcal (23-28kcal/kg) Protein: Using Current wt Protein Calculated 59g (1g/kg) Fluid: ml 1483-1779ml (1ml/kcal) Nutritional Problem 1. Problem Problem Altered nutrition related laboratory values related to Etiology DM aeb Signs/Symptoms: glucose 489 this AM, hx DM Intervention/Recommendation Comments 1. Recommend Diabetisource at 60ml/hr x 20hrs, providing 1200ml total volume, 1440kcal, 72g protein. Expected Outcomes/Goals Expected Outcomes/Goals 1. Pt to meet 100% of estimated nutritional needs on tube feeding with tolerance.
--- NOTE | 2017-05-27 15:50 | Discharge Summary ---
DATE OF DISCHARGE: 05/27/2017 ADMITTING DIAGNOSES: 1. Electrolyte imbalance, dehydration. 2. Renal insufficiency/azotemia. 3. Generalized weakness. 4. Hypokalemia. 5. Yhvta-lj-zavtobq anemia. 6. Pancytopenia. 7. Abdominal pain. SECONDARY DIAGNOSES: Include history of chronic respiratory failure, status post tracheostomy and recent history of pneumonia, history of asthma and chronic obstructive pulmonary disease, history of cerebrovascular accident, history of essential hypertension, history of type 2 diabetes, DISCHARGE DIAGNOSES: 1. Electrolyte imbalance, resolved. 2. Renal insufficiency, azotemia, resolved. 3. Pancytopenia, stable. 4. Right basilar atelectasis. 5. Abdominal pain, resolved. 6. Complicated pneumonia with Klebsiella pneumoniae and MRSA. CONSULTANTS: GI, Dr. James and Hematology, Dr. Martinez. MAJOR PROCEDURES: She underwent an EGD on 05/22/2017 showing gastritis. She underwent colonoscopy on 05/23/2017 showing a 2 mm cecal polyp, status post removal. There was an abdominal ultrasound done on 05/23/2017 showing findings consistent with cholelithiasis, questionable minimal ascites and normal hepatic and splenic sizes. There was a small bowel x-ray done on 05/23/2017 showing no evidence of small-bowel obstruction, gastroesophageal reflux suspected. There is left basilar atelectasis noted. There was a HIDA scan on 05/24/2017 done to rule out cholelithiasis. Impression, normal HIDA scan. BRIEF HOSPITAL COURSE: A 76-year-old female who had a recent complicated medical history starting about 3 months ago when she was admitted to [facility], diagnosed with complicated pneumonia ended up getting a trach and was transferred to [place] in [place]. She also apparently had recent CVA and suffers from diabetes, hypertension and anemia. She was admitted to [facility] where she was noted to have electrolyte imbalance including hypernatremia, hypokalemia and azotemia/renal insufficiency. IV fluids and free water were given, but her electrolytes remained abnormal and her clinical picture was described as feeling weak and tired and not able to tolerate feedings well via G-tube. She was transferred and admitted to this facility where on admission, her white count was noted to be 3, H and H was 7/23, potassium was 3.1, sodium 158 and BUN was 59. She was placed on D5 water. She was also placed on free water per G-tube. She was also given IV antibiotics, pulmonary supportive care and was seen by Nephrology. Her feeds were started after admission. Given her abdominal pain, a GI eval was asked for. She underwent the above-mentioned procedures without any complication and by hospital day #2, her electrolytes had improved and her clinical picture had also improved. She was seen by Physical Therapy and as noted above, her PEG feeds were tolerated. Her labs improved and blood cultures did not show any growth; however, her sputum cultures did come back with Klebsiella pneumoniae and MRSA. Therefore, she was placed on meropenem and vancomycin. CONDITION ON DISCHARGE: Stable. DISPOSITION: [facility] and care. MEDICATIONS ON DISCHARGE: Tylenol via G-tube q. 4 p.r.n. for pain or fever, DuoNeb q. 4 p.r.n. for SOB, Xanax 0.25 q. 12 p.r.n. for anxiety, amlodipine 10 every day via G-tube, benazepril 10 b.i.d., clonidine 0.1 q. 6 p.r.n. for SBP greater than 160, Colace 200 mg b.i.d., famotidine 20 mg every day, hydralazine 10 mg q.i.d. p.r.n. for SBP greater than 160, [place] 5/325 q. 8 hours p.r.n. for severe pain, insulin sliding scale, detemir 10 units every day, Lactobacillus 1 tab every day, Imodium 2 mg q. 6 p.r.n. for diarrhea, milk of magnesia 30 mL via G-tube at bedtime for constipation, meropenem for 10 more days and vancomycin 10 more days. [facility]# [id number]
== END 2017-05-27 14:30 | DRG 178 ==
LOC: ER 18:24 → TELE 20:00 → MSI 05-25 20:50 → TELE 05-26 00:53
PROVIDERS: ADMIT Internal Medicine; ATTEND Internal Medicine
PROC: 30233N1 Transfusion of Nonautologous Red Blood Cells into Peripheral Vein, Percutaneous Approach (ICD-10-PCS; principal; 2017-05-16)
PROC: 0DB98ZX Excision of Duodenum, Via Natural or Artificial Opening Endoscopic, Diagnostic (ICD-10-PCS; 2017-05-22)
PROC: 0DB68ZX Excision of Stomach, Via Natural or Artificial Opening Endoscopic, Diagnostic (ICD-10-PCS; 2017-05-22)
PROC: 0DBH8ZZ Excision of Cecum, Via Natural or Artificial Opening Endoscopic (ICD-10-PCS; 2017-05-23)
DX: J15.212 Pneumonia due to Methicillin resistant Staphylococcus aureus (principal); E87.0 Hyperosmolality and hypernatremia; D61.818 Other pancytopenia; J96.10 Chronic respiratory failure, unspecified whether with hypoxia or hypercapnia; E44.0 Moderate protein-calorie malnutrition; Z93.0 Tracheostomy status; J44.0 Chronic obstructive pulmonary disease with (acute) lower respiratory infection; J98.11 Atelectasis; E86.0 Dehydration; J15.0 Pneumonia due to Klebsiella pneumoniae; E11.22 Type 2 diabetes mellitus with diabetic chronic kidney disease; D46.9 Myelodysplastic syndrome, unspecified; E87.6 Hypokalemia; K63.5 Polyp of colon; M19.90 Unspecified osteoarthritis, unspecified site; E78.5 Hyperlipidemia, unspecified; I12.9 Hypertensive chronic kidney disease with stage 1 through stage 4 chronic kidney disease, or unspecified chronic kidney disease; N18.9 Chronic kidney disease, unspecified; M06.9 Rheumatoid arthritis, unspecified; K29.70 Gastritis, unspecified, without bleeding; D12.0 Benign neoplasm of cecum; Z82.49 Family history of ischemic heart disease and other diseases of the circulatory system; Z86.73 Personal history of transient ischemic attack (TIA), and cerebral infarction without residual deficits; Z93.1 Gastrostomy status
CPT/HCPCS: 36415-UA; 71010-TC; 74250-TC; 76700-TC; 78226-TC; 80048-TC; 80053-TC; 80061-TC; 80202-TC; 81001-TC; 81015-TC; 82043-90; 82270-TC; 82378-90; 82550-TC; 82570-TC; 82607-90; 82728-90; 82746-90; 82948-90; 83036-90; 83540-90; 83550-90; 83605; 83735-TC; 83880-TC; 83935-90; 84300-TC; 84443-TC; 84484-TC; 85007-TC; 85027-TC; 85044-TC; 85610-TC; 85730-TC; 86850-TC; 86900-TC; 86901-TC; 86922-TC; 87070; 87338-TC; 88305-90; 93005; 94760; A9537; C9113; J0456; J0696; J0744; J1650; J1815; J2001; J2185; J2704; J2765; J3370; J3475; J3480; J7030; J7070; P9016; Q0162; X3904; Z7506; Z7610